=== PATIENT | male | born 1970 | race Caucasian/White ===

== ENCOUNTER → 2018-04-29 09:54 | Outpatient (CLI) | payer BC, SELFPAY ==
[2018-04-29 12:32] LABS: Erythrocyte Sedimentation Rate 3 mm/hr (0-15)
[2018-04-29 12:34] LABS: Absolute Lymphocyte Count 1.79 X10^3/ul (0.83-4.51); Absolute Neutrophil Count 4.6 X10^3/uL (2.0-7.7); Basophil# 0.02 X10^3/uL; Basophil% 0.3 % (0-1); Eosinophil# 0.14 X10^3/uL; Hematocrit 46.8 % (40-54); Hemoglobin 16.1 g/dl (13.0-16.5); Lymphocyte # 1.79 X10^3/ul (4.0); Lymphocyte % 25.6 % (19-41); Mean Corp Hgb Conc 34.4 g/gl (32-36); Mean Corpuscular Hgb 30.5 pg (27.0-32.0); Mean Corpuscular Volume 88.6 fL (80-94); Mean Platelet Vol. 10.6 fl (6.2-12.0); Monocyte# 0.43 X10^3/uL; Monocyte% 6.2 % (0-10); Neutrophil # 4.59 X10^3/uL (2.7-7.7); Neutrophil % 65.6 % (47-70); POSITIVE COUNT NO; POSITIVE DIFFERENTIAL NO; POSITIVE MORPHOLOGY NO; Platelet Count 176 K/mm3 (150-450); RBC Distribution Width SD 41.8 fl (35.1-43.9); Red Blood Count 5.28 M/mm3 (4.6-6.2)
[2018-04-29 12:54] LABS: ALB/GLOB Ratio 1.1 RATIO (0.9-2.4); AST(SGOT) 19 U/L (15-37); Alanine Aminotransfer ALT/SGPT 43 U/L (16-61); Alkaline Phosphatase 58 U/L (45-117); Anion Gap 10 (5-15); BUN 12 mg/dL (7-18); BUN/Creat Ratio 11.3 RATIO (10-20); Calcium,Total 9.5 mg/dL (8.5-10.1); Chloride 105 mmol/L (98-107); Creatinine, Serum 1.06 mg/dL (0.70-1.30); EST Glomerular Filtration Rate 80 mL/min (>60); Est Glom Filt Rate - Afr Amer 97 mL/min (>60); Globulin 3.5 g/dL (2.2-4.2); Glucose 149 mg/dL (74-106); Protein, Total 7.5 g/dL (6.4-8.2); Sodium Level 139 mmol/L (136-145); Thyroid Stim Hormone (TSH) 0.99 uIU/mL (0.358-3.74)
[2018-05-03 12:11] LABS: Alternaria alternata <0.10 kU/L (Class 0); Aspergillus fumigatus <0.10 kU/L (Class 0); Bahia Grass 0.88 kU/L (Class II); Beef <0.10 kU/L (Class 0); Bermuda Grass 0.54 kU/L (Class I); Bluegrass, Kentucky 3.97 kU/L (Class IV); Cat Hair/Dander, Standard <0.10 kU/L (Class 0); Cedar, Mountain 0.11 kU/L (Class 0/I); Cladosporium herbarum <0.10 kU/L (Class 0); Cockroach, American <0.10 kU/L (Class 0); Corn <0.10 kU/L (Class 0); D farinae Mite 1.55 kU/L (Class III); D pteronyssinus 1.35 kU/L (Class II); Dog Epithelia <0.10 kU/L (Class 0); Egg, Whole <0.10 kU/L (Class 0); Elm, American White 0.14 kU/L (Class 0/I); Hickory, White 0.25 kU/L (Class 0/I); Johnson Grass 0.66 kU/L (Class II); Maple/Box Elder 0.19 kU/L (Class 0/I); Milk (Cow) <0.10 kU/L (Class 0); Mucor racemosus <0.10 kU/L (Class 0); Mugwort 0.44 kU/L (Class I); Mulberry, White <0.10 kU/L (Class 0); Nettle <0.10 kU/L (Class 0); Oak, White 0.24 kU/L (Class 0/I); Peanut <0.10 kU/L (Class 0); Penicillium chrysogen <0.10 kU/L (Class 0); Pigweed, Rough 0.22 kU/L (Class 0/I); Plantain, English 0.37 kU/L (Class I); Pork <0.10 kU/L (Class 0); Ragweed, Short/Common 5.47 kU/L (Class IV); Sheep Sorrel(Dock) 0.26 kU/L (Class 0/I); Soybean <0.10 kU/L (Class 0); Stemphylium herbarum <0.10 kU/L (Class 0); Sweet Gum 0.22 kU/L (Class 0/I); Sycamore, American 0.15 kU/L (Class 0/I); Wheat 0.12 kU/L (Class 0/I)
[2018-05-03 12:24] LABS: Chocolate <0.10 kU/L (Class 0)
== END ==
PROVIDERS: Family Provider Family Medicine; PCP Family Medicine; Visit Provider Family Medicine
DX: L50.9 Urticaria, unspecified (principal)
CPT/HCPCS: 36415; 80053; 84443; 85025; 85652; 86003; 86005

== ENCOUNTER → 2019-04-22 14:43 | Outpatient (CLI) | payer BC, SELFPAY ==
[2019-04-21 17:02] VITALS: BMI 31.5
== END ==
PROVIDERS: Family Provider Family Medicine; PCP Family Medicine; Referring Provider Physician Assistant; Visit Provider Physician Assistant
DX: J02.9 Acute pharyngitis, unspecified (principal)
CPT/HCPCS: 87081

== ENCOUNTER → 2019-06-27 10:00 | Outpatient (CLI) | payer BC, SELFPAY ==
[2019-06-27 06:44] VITALS: BMI 31.5
== END ==
PROVIDERS: Family Provider Family Medicine; PCP Family Medicine; Referring Provider Physician Assistant; Visit Provider Physician Assistant
DX: J02.9 Acute pharyngitis, unspecified (principal)
CPT/HCPCS: 87070

== ENCOUNTER → 2019-08-16 08:12 | Outpatient (CLI) | payer BC, SELFPAY ==
[2019-06-27 06:44] VITALS: BMI 31.5
[2019-08-16 10:19] LABS: Anion Gap 5 (5-15); BUN 16 mg/dL (7-18); BUN/Creat Ratio 15.1 RATIO (10-20); Calcium,Total 8.8 mg/dL (8.5-10.1); Chloride 105 mmol/L (98-107); Cholesterol 219 mg/dL (200); Creatinine, Serum 1.06 mg/dL (0.70-1.30); EST Glomerular Filtration Rate 80 mL/min (>60); Est Glom Filt Rate - Afr Amer 96 mL/min (>60); Glucose 108 mg/dL (74-106); High Density Lipoprotein 37 mg/dL; Sodium Level 140 mmol/L (136-145); Triglycerides 316 mg/dL; Very Low Density Lipoprotein 63 mg/dL (5-40)
== END ==
PROVIDERS: Family Provider Family Medicine; PCP Family Medicine; Visit Provider Family Medicine
DX: Z00.00 Encounter for general adult medical examination without abnormal findings (principal)
CPT/HCPCS: 36415; 80048; 80061

== ENCOUNTER → 2020-08-13 09:43 | Outpatient (CLI) | payer BC, SELFPAY ==
[2019-06-27 06:44] VITALS: BMI 31.5
[2020-08-13 12:45] LABS: Anion Gap 3 (5-15); BUN 12 mg/dL (7-18); BUN/Creat Ratio 11.3 RATIO (10-20); Calcium,Total 9.1 mg/dL (8.5-10.1); Chloride 107 mmol/L (98-107); Cholesterol 219 mg/dL (200); Creatinine, Serum 1.06 mg/dL (0.70-1.30); EST Glomerular Filtration Rate 79 mL/min (>60); Est Glom Filt Rate - Afr Amer 96 mL/min (>60); Glucose 102 mg/dL (74-106); High Density Lipoprotein 35 mg/dL; Potassium 4.1 mmol/L (3.5-5.1); Sodium Level 140 mmol/L (136-145); Triglycerides 396 mg/dL; Very Low Density Lipoprotein 79 mg/dL (5-40)
== END ==
PROVIDERS: PCP Family Medicine; Visit Provider Family Medicine
DX: E78.1 Pure hyperglyceridemia (principal); R03.0 Elevated blood-pressure reading, without diagnosis of hypertension
CPT/HCPCS: 36415; 80048; 80061

== ENCOUNTER → 2021-08-15 10:04 | Outpatient (CLI) | payer BC, SELFPAY ==
[2021-08-15 13:12] LABS: Anion Gap 5 (5-15); BUN 12 mg/dL (7-18); BUN/Creat Ratio 11.8 RATIO (10-20); Calcium,Total 9.2 mg/dL (8.5-10.1); Chloride 105 mmol/L (98-107); Cholesterol 225 mg/dL (200); Creatinine, Serum 1.02 mg/dL (0.70-1.30); EST Glomerular Filtration Rate 82 mL/min (>60); Est Glom Filt Rate - Afr Amer 100 mL/min (>60); Glucose 120 mg/dL (74-106); High Density Lipoprotein 37 mg/dL; Sodium Level 139 mmol/L (136-145); Triglycerides 425 mg/dL
== END ==
PROVIDERS: PCP Family Medicine; Visit Provider Family Medicine
DX: I10 Essential (primary) hypertension (principal)
CPT/HCPCS: 36415; 80048; 80061

== ENCOUNTER 2022-04-01 06:18 | Day surgery (SDC) | payer BC, SELFPAY ==
[2022-04-01] VITALS (7 sets, daily range): BP systolic 99–155; BP diastolic 71–94; PULSE 69–77; RESP 16; TEMP 36.8–36.9; O2SAT 94–97; BMI 30.9
[2022-04-01] MEDS: Lactated Ringers 1,000 ML 15 ML IV (06:40)
--- NOTE | 2022-04-01 06:52 | HP.PCM_ITS ---
HPI - General HPI Narrative DALE CLEMENT, is a 52 M who presents for screening colonoscopy. Patient has never had a colonoscopy in the past. He reports no abdominal pain or blood in the stool. He denies family history of colon cancer. [facility] Medical History (Updated 03/26/22 @ 14:15 by Shakila Galeana) Dental caries DUST AND GRASS ALLERGY Hypertension Restless legs Home Medications loratadine 10 mg tablet (Claritin) 10 mg PO DAILY PRN allergies 06/06/18 [History Last Taken Unknown] lisinopril 20 mg tablet 20 mg PO DAILY 02/02/21 [History Last Taken Unknown] Allergy/AdvReac Type Severity Reaction Status Date / Time prednisone AdvReac Severe Upset Verified 03/26/22 14:10 Stomach Surgical History (Updated 03/26/22 @ 14:15 by Shakila Galeana) Hx of shoulder surgery Social History Smoking Status: Never smoker alcohol intake: never substance use type: does not use Past Medical/Surgical History Planned Operation Planned Operative Procedure/s: Colonoscopy Previous Hospitalizations/Surgeries HX Hospitalizations: No Any Problems With Anesthesia: No You/Your Family Experience Fever (Hyperthermia) With Anes: No Cholinesterase deficiency: No Cardiovascular Hx Hypertension: Yes Respiratory Hx Sleep Apnea: No Hx Respiratory Tract Infection/Cold (presently): No Do You Snore Loudly (louder than talking or can be heard): No Do You Often Feel Tired/ Fatigued/ Sleepy Dring Daytime?: No Has Anyone Observed You Stop Breathing During Sleep?: No Result (for STOP score): Negative Smoking Status: Never smoker Neurological Does patient have nerve stimulator: No Allergies prednisone Adverse Reaction (Severe, Verified 03/26/22 14:10) Upset Stomach Discharge Is Pt Admitted From a Long Term, or a Fdc: No After D/C, Where Do you Plan to Go: Return Home Physical Exam Const alert and oriented x3 Resp normal respiratory effort and normal air movement Cardio regular rate and regular rhythm GI soft to palpation, non-tender and non-distended Assessment & Plan Assessment/Plan (1) Encounter for screening for malignant neoplasm of colon: PLAN: I explained endoscopy in detail to the patient. I explained the risks including but not limited to stroke or heart attack with anesthesia, perforation of the GI tract, bleeding, infection. I explained that any of these could necessitate further emergency surgery. The patient understands and all questions were answered sufficiently. The patient wishes to proceed with procedure. Cayden Yañez MD Pager: [facility] [address] [place] [address] [address] [place] [address] Office: Surgery Risks - Colonoscopy Risks Include but are not Limited To: Risks include but are not limited to: Bleeding, perforation requiring further surgery, inability to complete colonoscopy requiring barium enema.
--- NOTE | 2022-04-01 08:05 | OP.COLON_ITS ---
Patient Name: Hayden Yousif Procedure Date: 04/01/2022 7:46 AM Date of : 1970 Age: 52 Procedure: Colonoscopy Indications: Screening for colorectal malignant neoplasm Providers: Cayden Yañez MD Medicines: Monitored Anesthesia Care Patient Profile: This is a 52 year old male. Refer to note in patient chart for documentation of history and physical. Last Colonoscopy: none. The patient's first colonoscopy is today. Complications: No immediate complications. Procedure: Pre-Anesthesia Assessment: - Prior to the procedure, a History and Physical was performed, and patient medications and allergies were reviewed. The patient's tolerance of previous anesthesia was also reviewed. The risks and benefits of the procedure and the sedation options and risks were discussed with the patient. All questions were answered, and informed consent was obtained. Prior Anticoagulants: The patient has taken no previous anticoagulant or antiplatelet agents. After reviewing the risks and benefits, the patient was deemed in satisfactory condition to undergo the procedure. After I obtained informed consent, the scope was passed under direct vision. Throughout the procedure, the patient's blood pressure, pulse, and oxygen saturations were monitored continuously. The adult colonoscope was introduced through the anus and advanced to the cecum, identified by appendiceal orifice and ileocecal valve. The colonoscopy was performed without difficulty. The patient tolerated the procedure well. The quality of the bowel preparation was good. Scope In: 7:52:12 AM Scope Withdrawal Time 0 hours 6 minutes 9 seconds Scope Out: 8:01:47 AM Total Procedure Duration Time 0 hours 9 minutes 35 seconds Findings: The entire examined colon appeared normal on direct and retroflexion views. Impression: - The entire examined colon is normal on direct and retroflexion views. - No specimens collected. Recommendation: - Discharge patient to home. - Resume previous diet. - Continue present medications. - Repeat colonoscopy in 10 years for screening purposes. Procedure Code(s): --- Professional --- 65217, Colonoscopy, flexible; diagnostic, including collection of specimen(s) by brushing or washing, when performed (separate procedure) Diagnosis Code(s): --- Professional --- Z12.11, Encounter for screening for malignant neoplasm of colon CPT copyright 2017 [employer]. All rights reserved. The codes documented in this report are preliminary and upon internet marketing manager review may be revised to meet current compliance requirements. Cayden Yañez MD 04/01/2022 8:05:15 AM This report has been signed electronically. Number of Addenda: 0 Note Initiated On: 04/01/2022 7:46 AM
--- NOTE | 2022-04-01 08:06 | OP.CCLET_ITS ---
04/01/2022 Dat Oconnor [address] [place] [address] Re : Colonoscopy procedure for Hayden Yousif Dear Dr. Oconnor This procedure was performed on Friday, April 01, 2022. My impressions and recommendations are as follows: Impressions : - The entire examined colon is normal on direct and retroflexion views. - No specimens collected. Recommendations : - Discharge patient to home. - Resume previous diet. - Continue present medications. - Repeat colonoscopy in 10 years for screening purposes. My findings are described in the full procedure note, which is enclosed. If I can be of further assistance, please feel free to contact me at Doctor phone number(s): , Work: . Sincerely, Cayden Yañez MD 04/01/2022 8:05:15 AM This report has been signed electronically.
== END 2022-04-01 08:46 | disposition home or self-care (01) ==
LOC: EN 06:24 → AC 06:25
PROVIDERS: PCP Family Medicine; Referring Provider Family Medicine; Visit Provider Surgery
PROC: 0DJD8ZZ Inspection of Lower Intestinal Tract, Via Natural or Artificial Opening Endoscopic (ICD-10-PCS; CPT 45378; principal; 2022-04-01 07:25)
DX: Z12.11 Encounter for screening for malignant neoplasm of colon (principal); I10 Essential (primary) hypertension
CPT/HCPCS: 45378; J7120; J2405

== ENCOUNTER → 2022-07-30 | Outpatient (CLI) | payer BC, SELFPAY ==
[2022-07-30 10:08] LABS: PSA,Total - Annual Screen 0.94 ng/mL (0.00-4.00)
[2022-07-31 09:18] LABS: ALB/GLOB Ratio 1.3 RATIO (0.9-2.4); AST(SGOT) 34 U/L (15-37); Alanine Aminotransfer ALT/SGPT 51 U/L (16-61); Albumin, Serum 4.2 g/dL (3.2-5.0); Alkaline Phosphatase 67 U/L (45-117); Anion Gap 8 (5-15); BUN 16 mg/dL (7-18); BUN/Creat Ratio 15.2 RATIO (10-20); Calcium,Total 9.4 mg/dL (8.5-10.1); Chloride 108 mmol/L (98-107); Cholesterol 223 mg/dL (200); Creatinine, Serum 1.05 mg/dL (0.70-1.30); EST Glomerular Filtration Rate 79 mL/min (>60); Est Glom Filt Rate - Afr Amer 96 mL/min (>60); Globulin 3.2 g/dL (2.2-4.2); Glucose 127 mg/dL (74-106); High Density Lipoprotein 34 mg/dL; Potassium 4.4 mmol/L (3.5-5.1); Protein, Total 7.4 g/dL (6.4-8.2); Sodium Level 144 mmol/L (136-145); Triglycerides 325 mg/dL; Very Low Density Lipoprotein 65 mg/dL (5-40)
== END | disposition home or self-care (01) ==
LOC: MFPLAB 08:37
PROVIDERS: PCP Family Medicine; Referring Provider Family Medicine; Visit Provider Family Medicine
DX: Z12.5 Encounter for screening for malignant neoplasm of prostate (principal); R73.01 Impaired fasting glucose
CPT/HCPCS: 36415; 80053; 80061; 84153; G0103

== ENCOUNTER → 2023-04-01 | Outpatient (CLI) | payer BC, SELFPAY ==
--- NOTE | 2023-04-01 16:00 | RAD_ITS ---
EXAM: XR LEFT TOES, 2 OR MORE VIEWS CLINICAL INDICATION: left toe injury TECHNIQUE: Frontal, lateral and oblique views of the toes of the left foot. COMPARISON: No relevant prior studies available. FINDINGS: BONES/JOINTS: There is subtle cortical disruption both medially and laterally at the base of the great toe distal phalanx, indicating a nondisplaced fracture. The osseous structures are otherwise intact. No dislocation. Bony bunion formation noted along the medial aspect of the first metatarsal head. Minimal degenerative spurring noted about the first MTP joint. SOFT TISSUES: Soft tissue swelling about the great toe phalanges. No radiopaque foreign body. RAD/Toe(s) Min 2 Views IMPRESSION: Nondisplaced fracture extending across the base of the left great toe distal phalanx, with surrounding soft tissue swelling. No definite intra-articular extension of the fracture line. Electronically Signed: Adrian Knight MD at 2:27 EDT ,
== END | disposition home or self-care (01) ==
LOC: MTRAD 15:56
PROVIDERS: PCP Family Medicine; Referring Provider Family Medicine; Visit Provider Family Medicine
DX: S99.922A Unspecified injury of left foot, initial encounter (principal)
CPT/HCPCS: 73660

== ENCOUNTER → 2023-06-01 | Outpatient (CLI) | payer BC, SELFPAY ==
[2023-06-01 10:52] LABS: ALB/GLOB Ratio 0.9 RATIO (0.9-2.4); AST(SGOT) 9 U/L (15-37); Alanine Aminotransfer ALT/SGPT 43 U/L (16-61); Albumin, Serum 3.5 g/dL (3.2-5.0); Alkaline Phosphatase 69 U/L (45-117); Anion Gap 8 (5-15); BUN 14 mg/dL (7-18); BUN/Creat Ratio 13.6 RATIO (10-20); Calcium,Total 9.2 mg/dL (8.5-10.1); Chloride 108 mmol/L (98-107); Cholesterol 230 mg/dL (200); Creatinine, Serum 1.03 mg/dL (0.70-1.30); EST Glomerular Filtration Rate 81 mL/min (>60); Est Glom Filt Rate - Afr Amer 98 mL/min (>60); Globulin 3.7 g/dL (2.2-4.2); Glucose 134 mg/dL (74-106); High Density Lipoprotein 34 mg/dL; PSA,Total - Annual Screen 0.63 ng/mL (0.00-4.00); Potassium 4.2 mmol/L (3.5-5.1); Protein, Total 7.2 g/dL (6.4-8.2); Sodium Level 141 mmol/L (136-145); Triglycerides 584 mg/dL
== END | disposition home or self-care (01) ==
LOC: MFPLAB 08:20
PROVIDERS: PCP Family Medicine; Visit Provider Family Medicine
DX: R73.01 Impaired fasting glucose (principal); Z12.5 Encounter for screening for malignant neoplasm of prostate
CPT/HCPCS: 36415; 80053; 80061; 84153; G0103

== ENCOUNTER 2023-07-08 19:29 | Emergency (ER) | payer BC, SELFPAY ==
[2023-07-08 19:29] VITALS: BP 180/97; PULSE 93; RESP 12; O2SAT 99
[2023-07-08 19:30] VITALS: BP 184/113; PULSE 75; RESP 18; TEMP 35.8; O2SAT 100; BMI 31.6
--- NOTE | 2023-07-08 20:10 | EX.ED.DYSGE1 ---
HPI History of Present Illness Chief Complaint: Hypertension Detail of Chief Complaint: Hypertension Informant: patient Narrative Narrative: Patient presents to the emergency department complaint of elevated blood pressure. Patient states that he was at a high school game and started feeling like his knees were weak and came feeling numb and tingly. He said 3 episodes now since May 24 of similar events. He was at a concert on May 24 when he started feeling this way and he went to the medical tent there and he was noted to have elevated blood pressure of 216 systolic. He was taken to [facility] where he had work-up including CT scan of his brain as well as blood work and EKG. Patient does have history of hypertension and takes lisinopril. He was recently seen by his primary care physician and started amlodipine today. No diagnosed history of anxiety. He does have some stressors and that he is can be starting a new job and he is in the process of planning a wedding. Denies recent illness otherwise. [facility] Medical History (Updated 07/08/23 @ 21:[address] Benito Dasilva, ) Dental caries DUST AND GRASS ALLERGY Hypertension Restless legs Home Medications loratadine 10 mg tablet (Claritin) 10 mg PO DAILY PRN allergies 06/06/18 [History Last Taken Unknown] lisinopril 20 mg tablet 20 mg PO DAILY 02/02/21 [History Last Taken Unknown] amlodipine 5 mg tablet mg 07/08/23 [History Last Taken Unknown] lorazepam 1 mg tablet (Ativan) 1 mg PO TID PRN anxiety #10 tabs 07/08/23 [Rx Last Taken Unknown] Allergy/AdvReac Type Severity Reaction Status Date / Time prednisone AdvReac Severe Upset Verified 04/01/22 06:55 Stomach Surgical History Hx of shoulder surgery Social History Smoking Status: Never smoker alcohol intake: never substance use type: does not use ROS ROS ED Review of Systems ROS Unobtainable: other Constitutional Constitutional ED: Reports lethargy; Denies chills, fever(s), sweats or weight loss Eyes Eyes: Denies blurry vision, change in vision or diplopia ENT ENT ED: Denies rhinorrhea or sore throat Cardiovascular Cardiovascular: Denies chest pain, orthopnea or racing heartbeat Respiratory/Chest Respiratory/Chest: Denies cough, dyspnea, dyspnea on exertion, orthopnea or sputum Gastrointestinal Gastrointestinal: Denies abdominal pain, diarrhea, nausea or vomiting Genitourinary Genitourinary ED: Denies dysuria, hematuria or urinary frequency Musculoskeletal Musculoskeletal: Denies arthralgias, back pain, myalgias or neck pain Integumentary Denies abscess, Abrasions or rash Neurologic Neurologic: Denies headache(s) or weakness Psychiatric Psychiatric: Denies anxiety, depression or suicidal thoughts Endocrine Endocrinology: Denies polydipsia, polyphagia or polyuria Hematologic/Lymphatic Hematologic/Lymphatic: Denies easy bleeding, easy bruising or lymphadenopathy Allergic/Immunologic Allergic/Immunologic ED: Denies mouth swelling, tongue swelling or urticaria EXAM Physical Exam Const Vital Signs: 07/08/23 19:30 07/08/23 19:29 07/08/23 20:19 Temperature 96.5 F L Temperature Source Temporal Pulse Rate 75 93 Respiratory Rate 18 12 Respiratory Effort Normal Respiratory Pattern Normal Blood Pressure 184/113 H 180/97 H Blood Pressure Mean 136 124 Pulse Ox 100 99 Oxygen Delivery Method Room Air Room Air 07/08/23 20:20 07/08/23 21:38 Temperature Temperature Source Pulse Rate Respiratory Rate Respiratory Effort Normal Respiratory Pattern Normal Blood Pressure 157/98 H Blood Pressure Mean 117 Pulse Ox Oxygen Delivery Method Positive well nourished and well developed General Appearance ED: well developed and NAD HEENT Reports TM's clear and moist mucous membranes normocephalic and atraumatic; Negative for trauma or tenderness Tympanic Membrane ED: Yes TM's clear Eyes PERRL and EOMs intact bilaterally General Eye ED: Negative for pale conjunctiva or scleral icterus Neck no lymphadenopathy, supple and no JVD General: Negative for tenderness Chest Wall inspection of chest normal and palpation of chest normal Chest: Negative for tenderness Resp normal respiratory effort and clear to auscultation bilaterally Effort and Inspection: Negative for respiratory distress or pain with movement Auscultation: Negative for rhonchi, wheezes or diminished lung sounds Cardio regular rate, regular rhythm, S1 normal heart sound, S2 normal heart sound and no murmurs Peripheral Pulses: pulses 2+ throughout GI normal to inspection, nondistended, normoactive bowel sounds, soft to palpation, non-tender, non-distended and no masses Back/Spine no CVA tenderness and no thoracic nor lumbar tenderness Extremity normal to inspection General Extremety ED: Negative for edema General Extremity: Negative for edema Neuro oriented x3, CN's II-XII intact bilaterally, no sensory deficits noted and gait normal Sensorium / Orientation: awake, alert, oriented to person, oriented to place and oriented to time Motor Exam: strength 5/5 throughout and strength abnormal Psych mental status grossly normal Skin no rashes or lesions noted and no wounds MDM MDM MDM Narrative Medical decision making narrative: Presents with concern for hypertension. Currently being treated for hypertension and started new medicine today. IV line established. CBC with differential white count 7.0 with hemoglobin of 15.8 and platelet count 217. Chemistries unremarkable. Troponin was normal. EKG showed a sinus rhythm with rate of 69 bpm with old inferior infarct. Patient was given a milligram of Ativan. Blood pressure is now running 170s to 150s systolic over 90s to 100 diastolic. Patient advised to continue with his current medications as he just started the Norvasc today. I recommended that he take the Norvasc in the morning and the lisinopril in the evening. Patient to keep track of his blood pressure readings. Patient advised to follow-up with his primary care physician within next 3 to 5 days. I will also start him on Ativan for as needed for anxiety. I suspect there may be a component of anxiety and stress. Lab Data Attestation: I reviewed the patient's lab results. Labs: Laboratory Results - last 24 hr 07/08/23 20:00 WBC 7.0 RBC 5.32 Hgb 15.8 Hct 44.7 MCV 84.0 MCH 29.7 MCHC 35.3 RDW Std Deviation 36.3 RDW Coeff of Rubens 12.0 Plt Count 217 MPV 10.0 Immature Gran % (Auto) 0.600 Neut % (Auto) 61.0 Lymph % (Auto) 30.0 [place] % (Auto) 5.7 Eos % (Auto) 2.0 Baso % (Auto) 0.7 Absolute Neuts (auto) 4.3 Absolute Lymphs (auto) 2.09 Nucleated RBC % 0 Sodium 139 Potassium 4.0 Chloride 106 Carbon Dioxide 27.0 Anion Gap 6 BUN 11 Creatinine 1.05 Estim Creat Clear Calc 85.94 Est GFR (MDRD) Af Amer 96 Est GFR (MDRD) Non-Af 79 BUN/Creatinine Ratio 10.5 Glucose 142 H Calcium 9.6 Troponin I High Sens 8 EKG Initial EKG: Attestation: I personally reviewed and interpreted this EKG as follows: Comments: Sinus rhythm with rate 69 bpm with old inferior infarct Discharge Plan Triage Chief Complaint: Hypertension ED Provider: Benito Dasilva Dx/Rx/DC Orders Clinical Impression: Anxiety, Hypertension Instructions: Hypertension Dc, ED Anxiety Reaction Prescriptions: New lorazepam [Ativan] 1 mg tablet 1 mg PO TID PRN (Reason: anxiety) Qty: 10 0RF No Action loratadine [Claritin] 10 mg tablet 10 mg PO DAILY PRN (Reason: allergies) lisinopril 20 mg tablet 20 mg PO DAILY amlodipine 5 mg tablet Patient Comments: TAKE 1 TABLET BY MOUTH EVERY DAY Primary Care Provider: Dat Oconnor Referrals: Dat Oconnor MD [Primary Care Provider] - 3-5 Days Disposition Disposition: Home, Self Care Discharge Date/Time: 07/08/23 21:40
[2023-07-08] MEDS: LORazepam 2 MG/ML Syringe 1 MG IV (20:15)
[2023-07-08 20:17] LABS: Absolute Lymphocyte Count 2.09 X10^3/uL (0.83-4.51); Absolute Neutrophil Count 4.3 X10^3/uL (2.0-7.7); Basophil# 0.05 X10^3/uL; Basophil% 0.7 % (0-1); Eosinophil# 0.14 X10^3/uL; Hematocrit 44.7 % (40-54); Hemoglobin 15.8 g/dL (13.0-16.5); Lymphocyte # 2.09 X10^3/ul (0.83-4.51); Mean Corp Hgb Conc 35.3 g/dL (32-36); Mean Corpuscular Hgb 29.7 pg (27.0-32.0); Monocyte% 5.7 % (0-10); NRBC Flagged by Analyzer 0 % (0-5); Neutrophil # 4.25 X10^3/uL (2.7-7.7); Platelet Count 217 K/mm3 (150-450); RBC Distribution Width SD 36.3 fl (35.1-43.9); Red Blood Count 5.32 M/mm3 (4.6-6.2)
[2023-07-08 20:37] LABS: Anion Gap 6 (5-15); BUN 11 mg/dL (7-18); BUN/Creat Ratio 10.5 RATIO (10-20); Calcium,Total 9.6 mg/dL (8.5-10.1); Chloride 106 mmol/L (98-107); Creatinine, Serum 1.05 mg/dL (0.70-1.30); EST Glomerular Filtration Rate 79 mL/min (>60); Est Glom Filt Rate - Afr Amer 96 mL/min (>60); Estimated Creatinine Clearance 85.94 ml/min; Glucose 142 mg/dL (74-106); Sodium Level 139 mmol/L (136-145); Troponin-I HS 8 pg/mL (3.0-78.0)
[2023-07-08 21:38] VITALS: BP 157/98
== END 2023-07-08 21:40 | disposition home or self-care (01) ==
PROVIDERS: Emergency Provider Emergency Medicine; PCP Family Medicine; Visit Provider Emergency Medicine
DX: I10 Essential (primary) hypertension (principal); F41.9 Anxiety disorder, unspecified; Z79.899 Other long term (current) drug therapy
CPT/HCPCS: 80048; 84484; 85025; 93005; 96374; 99285; A4216

== ENCOUNTER → 2023-10-13 | Outpatient (CLI) | payer BC, SELFPAY ==
--- NOTE | 2023-10-13 07:48 | ECHOD_ITS ---
Reason For Study: HTN Procedure This was a 2D Doppler, Color Flow transthoracic echocardiogram. Exam performed in department. Left Ventricle Normal LV size. Left ventricular systolic function is normal. The estimated ejection fraction is 60 %. Stage 1 diastolic dysfunction. No regional wall motion abnormalities noted. Right Ventricle Normal RV size. Normal systolic function. Atria Normal left atrium. Normal right atrium. Mitral Valve Equivocal mitral valve prolapse. Tricuspid Valve Normal tricuspid valve. Aortic Valve Normal aortic valve. Trisinus/trileaflet aortic valve. Pulmonic Valve The pulmonic valve is not well visualized. Great Vessels Normal aortic root. The pulmonary artery is normal size. Normal inferior vena cava. Pericardium/Pleural No pericardial effusion. MMode/2D Measurements & Calculations LVIDd: 4.6 cm IVSd: 0.98 cm Ao root diam: 3.4 cm LVIDs: 2.9 cm LVPWd: 0.93 cm RVDd: 3.9 cm FS: 38.1 % LAV(MOD-bp): 42.8 ml LVAd ap4: 30.6 cm2 LVAd ap2: 20.9 cm2 LAV(MOD-bp) Indexed: 19.5 ml/m2 LVLd ap4: 8.4 cm LVLd ap2: 7.4 cm LAV(MOD-sp2): 44.0 ml EDV(MOD-sp4): 91.9 ml EDV(MOD-sp2): 47.9 ml LAV(MOD-sp4): 40.8 ml EDV(sp4-el): 94.6 ml EDV(sp2-el): 49.8 ml LVAs ap4: 14.1 cm2 LVAs ap2: 10.6 cm2 LVLs ap4: 6.9 cm LVLs ap2: 6.1 cm ESV(MOD-sp4): 27.0 ml ESV(MOD-sp2): 16.8 ml ESV(sp4-el): 24.5 ml ESV(sp2-el): 15.6 ml EF(MOD-sp4): 70.6 % EF(MOD-sp2): 65.0 % EF(sp4-el): 74.1 % SV(MOD-sp4): 64.9 ml SV(MOD-sp2): 31.2 ml SV(sp4-el): 70.1 ml LA dimension(2D): 4.1 cm LA A4 area: 15.9 cm2 RA A4 area: 16.1 cm2 TAPSE: 2.4 cm Time Measurements MV dec time: 0.26 sec Doppler Measurements & Calculations MV E max rojas: 68.5 cm/sec Lat Peak E' Rojas: 11.8 cm/sec Med Peak E' Rojas: 8.2 cm/sec MV A max rojas: 74.8 cm/sec E/E' lat: 5.8 E/E' med: 8.3 MV E/A: 0.92 MV V2 max: 87.9 cm/sec MV P1/2t max rojas: 81.2 cm/sec Ao V2 max: 171.0 cm/sec MV max P.1 mmHg MV P1/2t: 82.6 msec Ao max P.7 mmHg MV V2 mean: 53.1 cm/sec MV dec slope: 288.1 cm/sec2 Ao V2 mean: 120.4 cm/sec MV mean P.3 mmHg Ao mean P.5 mmHg MV V2 VTI: 19.8 cm MVA(P1/2t): 2.7 cm2 Ao V2 VTI: 29.9 cm AV (velocity ratio): 0.85 LV V1 max: 157.3 cm/sec PA V2 max: 148.2 cm/sec LV V1 max P.9 mmHg PA V2 mean: 108.3 cm/sec LV V1 mean P.6 mmHg LV V1 mean: 113.1 cm/sec LV V1 VTI: 25.5 cm ECHO/Echo Complete Interpretation Summary Normal LV size. Left ventricular systolic function is normal. The estimated ejection fraction is 60 %. Equivocal mitral valve prolapse. Stage 1 diastolic dysfunction. Ordering Physician: Kendall Leon Referring Physician: Chirag Oconnor Performed By: May Mcclain, RDCS, RVT
--- OUTSIDE RECORDS SUMMARY | 2023-10-13 07:51 | XMS RPT_ITS | CCD ---
Author Name Unknown Address [address] [place] [address] Organization [facility] Care Team Providers Care Manufacturing Weaver Name Role Phone Chirag Holguin Primary Care Provider CHIRAG HOLGUIN Primary Care Unavail STEPHEN Ramirez Attending Unavailable DALI GARVIN Attending Unavail VU [place] Admitting Unavailab VU [place] Referring Unavailab CHIRAG Urbina Primary Care Unavail able JYOTI MCGOWAN Attending Unavailable CHIRAG HOLGUIN Primary Care Unavail CHIRAG Rutledge Primary Care UnavailDESTINEY Graves Attending Unavailable Allergies Allergy Classification Reported Allergen(s) Allergy Type Date of Onset Reaction(s) Facility Corticosteroids (1 source) predniSONE; Translations: [PREDNISONE] Drug Allergy 9 [facility] Repository (3 sources) predniSONE; Translations: [PREDNISONE] Drug Allergy 9 Other (See Comments) [facility] (1 source) OTHER; Translations: [OTHER] Propensity to adverse reactions (disorder) [address] [facility] Repository Medications Current Medications Medication Drug Class(es) Dates Sig (Normalized) Sig (Original) fexofenadine hydrochloride 180 mg oral tablet (1 source) Histamine-1 Receptor Antagonist Start: 04-12-2009 fexofenadine (Jolie Allergy) 180 MG tablet Take by mouth . 0 04/12/2009 Active loratadine 10 mg oral capsule (2 sources) loratadine 10 mg cap Take by mouth . 0 Active NONFORMULARY (2 sources) NONFORMULARY Indications: OTC allergy nose spray twice daily Reasons: OTC allergy nose spray twice daily. 0 Active ofloxacin 3 mg/ml ophthalmic solution (1 source) Quinolone Antimicrobial Start: 10-27-2018 End: 11-03-2018 take 1 drop(s) into the eye(s) four times daily ofloxacin (OCUFLOX) 0.3 % ophthalmic solution Administer 1 (one) drop to both eyes 4 (four) times a day for 7 days . 10 mL 0 10/27/2018 11/03/2018 Active Problems Problem Classification Problem Date Documented Date Episodic/Chronic Conditions associated with dizziness or vertigo (1 source) Dizziness and giddiness; Translations: [Dizziness] Onset: 06-25-2023 Episodic Essential hypertension (1 source) Essential (primary) hypertension; Translations: [Hypertension, unspecified type] Onset: 06-25-2023 Chronic Inflammation; infection of eye (except that caused by tuberculosis or sexually transmitteddisease) (1 source) Unspecified acute conjunctivitis, bilateral; Translations: [Acute conjunctivitis of both eyes, unspecified acute conjunctivitis type] Episodic Residual codes; unclassified (1 source) Other general symptoms and signs; Translations: [Suspected Covid-19 Virus Infection] Episodic Results Test Name Value Interpretation Reference Range Facil ity Vital Signs Date Time Vital Sign Value Performing Clinician Faci lity 07-04-2020 11:0500 BP Diastolic 100 mm[Hg] Stephen Cosme [facility] Encounters Encounter Date Encounter Type Care Provider Facility Start: 06-25-2023 End: 06-25-2023 Emergency department patient visit CHIRAG HOLGUIN Facility:[facility] Start: 11-30-2020 End: 11-30-2020 ambulatory DALI GARVIN [facility] Start: 11-08-2020 End: 11-08-2020 ambulatory JYOTI MCGOWAN [facility] Start: 07-04-2020 End: 07-04-2020 Patient encounter procedure CHIRAG HOLGUIN [facility] Start: 07-04-2020 End: 07-04-2020 Office outpatient visit 15 minutes Stephen Cosme Work Phone: [facility] [place] Plan of Treatment Date Care Activity Detail Author Start: 08-11-2029 Tetanus vaccination Tetanus: Every 1 0yrs [facility] Start: 04-17-2018 Influenza vaccination given SE QUENTIAL INFLUENZA VACCINE (#1) [facility] Start: 1990 Hepatitis C antibody , confirmatory test Hepatitis C Screening [facility] Start: 1987 HIV screening HIV Screening [facility] Start: 1984 Adolescent depressio n screening assessment Depression Screening (PHQ9) [facility] Start: 1975 History and physical examination, annual for health maintenance Wellness Visit [facility] Start: 1972 Prostate specific an tigen measurement PSA Level [facility] Start: 1972 Tetanus vaccination TETANUS EVERY 10 YR [facility] COVID-19, Molecular COVID-19, Mo lecular Microbiology Routine Suspected Covid-19 Virus Infection Ordered: 07/04/2020 [facility] Payers Date Payer Category Payer Unknown [place] [facility] [place]-Present xxxxxxxxxxxxxxx [id number] 2017 Unknown [place] [facility] [place] [id number] 2017-Present [id number] 2017 Unknown [id number] 2007 Unknown [id number] 1972 Unknown [id number] 1972 Unknown [id number] 1972 Unknown [id number] Social History Date Type Detail Facility Start: 10-27-2018 End: 07-04-2020 Tobacco smoking status NHIS Never smoker [facility] Start: 10-27-2018 Alcohol Comment rarely [facility] Sex Assigned At Not on file [facility] Start: 07-04-2020 Tobacco use and exposure Never used [facility] Start: 07-04-2020 Alcohol intake Current drinke r of alcohol (finding) [facility] Exposure to SARS-CoV -2 (event) Not sure [facility] Instructions * Patient Instructions* Rajwinder PortilloNilam, CORRECTIONAL CASE RECORDS SUPERVISOR - 10/27/2018 12:00 PM EDT Pinkeye: Care Instructions Your Care Instructions Pinkeye is redness and swelling of the eye surface and the conjunctiva (the lining of the eyelid and the covering of the white part of the eye). Pinkeye is also called conjunctivitis. Pinkeye is often caused by infection with bacteria or a virus. Dry air, allergies, smoke, and chemicals are other common causes. Pinkeye often clears on its own in 7 to 10 days. Antibiotics only help if the pinkeye is caused by bacteria. Pinkeye caused by infection spreads easily. If an allergy or chemical is causing pinkeye, it will not go away unless you can avoid whatever is causing it. Follow-up care is a nolasco part of your treatment and safety. Be sure to make and go to all appointments, and call your doctor if you are having problems. It's also a good idea to know your test resultsand keep a list of the medicines you take. How can you care for yourself at home? Wash your hands often. Always wash them before and after you treat pinkeye or touch your eyes or face. Use moist cotton or a clean, wet cloth to remove crust. Wipe from the inside corner of the eye to the outside. Use a clean part of the cloth for each wipe. Put cold or warm wet cloths on your eye a few times a day if the eye hurts. Do not wear contact lenses or eye makeup until the pinkeye is gone. Throw away any eye makeup you were using when you got pinkeye. Clean your contacts and storage case. If you wear disposable contacts, use a new pair when your eye has cleared and it is safe to wear contacts again. If the doctor gave you antibiotic ointment or eyedrops, use them as directed. Use the medicine for as long as instructed, even if your eye starts looking better soon. Keep the bottle tip clean, and do not let it touch the eye area. To put in eyedrops or ointment: ? Tilt your head back, and pull your lower eyelid down with one finger. ? Drop or squirt the medicine inside the lower lid. ? Close your eye for 30 to 60 seconds to let the drops or ointment move around. ? Do not touch the ointment or dropper tip to your eyelashes or any other surface. Do not share towels, pillows, or washcloths while you have pinkeye. When should you call for help? Call your doctor now or seek immediate medical care if: You have pain in your eye, not just irritation on the surface. You have a change in vision or loss of vision. You have an increase in discharge from the eye. Your eye has not started to improve or begins to get worse within 48 hours after you start using antibiotics. Pinkeye lasts longer than 7 days. Watch closely for changes in your health, and be sure to contact your doctor if you have any problems. Where can you learn more? Log into your personal health record on https://Chatterflyt.Capsule.fm and enter Y392 in the Education box to learn more about Pinkeye: Care Instructions. Current as of: May 09, 2018 Content Version: 11.9 4299-5759 [employer]. Care instructions adapted under license by your healthcare professional. If you have questions about a medical condition or this instruction, always ask your healthcare professional. [employer] disclaims any warranty or liability for your use of this information. in this encounter* Patient Instructions* Stephen Cosme CNP - 07/04/2020 10:57 AM EST COVID test is pending. Self quarantine. Work note provided. If you have any significant shortness of breath or difficulty breathing or chest pain go to the emergency room. Follow-up with your primary provider if concerns or symptoms in 5 to 7 days or earlier if needed. [facility] COVID Post-swabbing Instructions When and How Will I Get Results? Results will be available 1 to 5 days after your specimen is collected. The provider/practice who placed the order for your test will notify you of your results. If you have an active [employer] account, and your COVID test is negative (not detected), then you will be notified through your [employer] account. You should call the urgent care if you have any further questions. If your COVID test is positive (detected), you will receive a phone call to discuss your results and answer any questions you might have at that time. Please make sure [facility] has your updated phone number so we can contact you. [facility] will notify the [facility] of any positive results to comply with state regulations. What Happens After I Get Tested if I Have COVID-19 Symptoms? All patients should self-quarantine at home until they receive their test results. While self-quarantining, contact your PCP if you develop any of the following: - A fever of 103 degrees F (39.4 C) or higher - A fever that lasts more than 3 days without medication - A fever that returns after being gone for more than 24 hours - Chest pain or difficulty breathing - A worsening of current symptoms For work concerns, please contact your employer's HR department. How Do I Self-Quarantine? Stay Home: Stay home from work or school - We suggest that you avoid public places & as best as possible - Avoid close contact (less than 6 feet) with anyone in your household. - We also suggest that you sleep in a separate bedroom & use a separate bathroom from other house hold members if possible. What Do I Do If I am Sick? Stay Home: Stay home from work or school if you are sick. Social Distance: maintain 6 feet of distance from other people Monitor Your Symptoms: If you develop fever, shortness of breath, confusion, or any respiratory symptoms, please notify your doctor immediately Cover Your Cough: Cough and sneeze into your shirt sleeve or inner elbow. Do not cough into your hands or into the air. If available, cough into a tissue and throw it into a trash can. Wash Your Hands: Wash hands often with soap and warm water and/or alcohol based hand living manager, scrubbing your hands for at least 20 seconds. Wash your hands after sneezing or coughing, after going to the bathroom, and before eating or drinking. Wear a Mask: Wear a face mask when around others. Always wear a face mask (if available) if you have to leave your home (such as to go to a medical facility). Don't Touch: avoid touching your eyes, nose, and mouth Don't Share: avoid sharing items with others as they can spread infection. Call First: If you do need to seek urgent medical care, call the facility first to let them know you are on your way. What Happens After I Get Tested if I am Preparing for a Surgery or Procedure? If your test result is negative, proceed with your surgery as planned. We urge you to self-quarantine until your surgery or procedure to avoid any potential exposure to COVID-19. If your test is positive, you will be notified and your surgery will be rescheduled for a future date. Please contact your Primary Care Provider (PCP) immediately if you do receive a positive result. You will be expected to self-quarantine at home for 14 days. While self- quarantining, contact your PCP if you develop any of the following: - A fever of 103 degrees F (39.4 C) or higher - A fever that lasts more than 3 days without medication - A fever that returns after being gone for more than 24 hours - Chest pain or difficulty breathing - A worsening of current symptoms For work concerns, please contact your employer's HR Department What Happens After I Get Tested if I am Preparing to Deliver my Baby? Please remain self-quarantined at home until your delivery to limit any exposure risk to COVID-19. Please contact your Primary Care Provider (PCP) immediately if you do receive a positive result. - You will be expected to self-quarantine at home for 14 days, with the exception of seeking medical care for your . While self-quarantining, contact your PCP if you develop any of the following: - A fever of 103 degrees F (39.4 C) or higher - A fever that lasts more than 3 days without medication - A fever that returns after being gone for more than 24 hours - Chest pain or difficulty breathing - A worsening of current symptoms For work concerns, please contact your employer's HR Department Other COVID Questions? CDC: https://www.cdc.gov/coronavirus/2019-ncov/index.html [place] Department of Health - Website: https://coronavirus.[place].gov/wps/portal/gov/covid-19/home - Hotline: 900-0-CQN-ODH (963-239-4665) Metaplace: https://blog.Cimetrix.Express Fit/series/xmhen-00-hgdmsctnadj-toolkit/ Learning About Coronavirus (COVID-19) Coronavirus (COVID-19): Overview What is coronavirus (COVID-19)? The coronavirus disease (COVID-19) is caused by a virus. It is an illness that was first found in July 2019. It has since spread worldwide. The virus can cause fever, cough, and trouble breathing. In severe cases, it can cause pneumonia and make it hard to breathe without help. It can cause . This virus spreads nytmli-ka-qezuof through droplets from coughing and sneezing. It can also spreadwhen you are close to someone who is infected. And it can spread when you touch something that has the virus on it, such as a doorknob or a tabletop. Coronaviruses are a large group of viruses. They cause the common cold. They also cause more serious illnesses like Middle East respiratory syndrome (MERS) and severe acute respiratory syndrome (SARS). COVID-19 is caused by a novel coronavirus. That means it's a new type that has not been seen in people before. How is COVID-19 treated? Mild illness can be treated at home, but more serious illness needs to be treated in the hospital. Treatment may include medicines to reduce symptoms, plus breathing support such as oxygen therapy ora ventilator. Other treatments, such as antiviral medicines, may help people who have COVID-19. What can you do to protect yourself from COVID-19? The best way to protect yourself from getting sick is to: Avoid areas where there is an outbreak. Avoid contact with people who may be infected. Avoid crowds and try to stay at least 6 feet away from other people. Wash your hands often, especially after you cough or sneeze. Use soap and water, and scrub for at least 20 seconds. If soap and water aren't available, use an alcohol-based hand living manager. Avoid touching your mouth, nose, and eyes. What can you do to avoid spreading the virus to others? To help avoid spreading the virus to others: Wash your hands often with soap or alcohol-based hand sanitizers. Cover your mouth with a tissue when you cough or sneeze. Then throw the tissue in the trash. Use a disinfectant to clean things that you touch often. These include doorknobs, remote controls, phones, and handles on your refrigerator and microwave. And don't forget countertops, tabletops, bathrooms, and computer keyboards. Wear a cloth face cover if you have to go to public areas. If you know or suspect that you have COVID-19: Stay home. Don't go to school, work, or public areas. And don't use public transportation, ride-shares, or taxis unless you have no choice. Leave your home only if you need to get medical care or testing. But call the doctor's office firstso they know you're coming. And wear a face cover. Limit contact with people in your home. If possible, stay in a separate bedroom and use a separate bathroom. Wear a face cover whenever you're around other people. It can help stop the spread of the virus when you cough or sneeze. Clean and disinfect your home every day. Use household supervisor wound and disinfectant wipes or sprays. Take special care to clean things that you grab with your hands. Self-isolate until it's safe to be around others again. ? If you have symptoms, it's safe when you haven't had a fever for 3 days and your symptoms have improved and it's been at least 10 days since your symptoms started. ? If you were exposed to the virus but don't have symptoms, it's safe to be around others 14 days after exposure. ? Talk to your doctor about whether you also need testing, especially if you have a weakened immunesystem. When to call for help Call 911 anytime you think you may need emergency care. For example, call if: You have severe trouble breathing. (You can't talk at all.) You have constant chest pain or pressure. You are severely dizzy or lightheaded. You are confused or can't think clearly. Your face and lips have a blue color. You passed out (lost consciousness) or are very hard to wake up. Call your doctor now if you develop symptoms such as: Shortness of breath. Fever. Cough. If you need to get care, call ahead to the doctor's office for instructions before you go. Make sure you wear a face cover to prevent exposing other people to the virus. Where can you get the latest information? The following health organizations are tracking and studying this virus. Their websites contain themost up-to-date information. You'll also learn what to do if you think you may have been exposed tothe virus. U.[place]. Centers for Disease Control and Prevention (CDC): The CDC provides updated news about the disease and travel advice. The website also tells you how to prevent the spread of infection. www.cdc.gov World Health Organization (WHO): WHO offers information about the virus outbreaks. WHO also has travel advice. www.who.int Current as of: February 24, 2020 Content Version: 12.6 [employer]. Care instructions adapted under license by your healthcare professional. If you have questions about a medical condition or this instruction, always ask your healthcare professional. [employer] disclaims any warranty or liability for your use of this information. Coronavirus (COVID-19): Care Instructions Overview The coronavirus disease (COVID-19) is caused by a virus. Symptoms may include a fever, a cough, andshortness of breath. It mainly spreads pdtyqs-zq-ovygwc through droplets from coughing and sneezing. The virus also can spread when people are in close contact with someone who is infected. Most people have mild symptoms and can take care of themselves at home. If their symptoms get worse, they may need care in a hospital. Treatment may include medicines to reduce symptoms, plus breathing support such as oxygen therapy or a ventilator. It's important to not spread the virus to others. If you have COVID-19, wear a face cover anytime you are around other people. You need to isolate yourself while you are sick. Leave your home only ifyou need to get medical care or testing. Follow-up care is a nolasco part of your treatment and safety. Be sure to make and go to all appointments, and call your doctor if you are having problems. It's also a good idea to know your test resultsand keep a list of the medicines you take. How can you care for yourself at home? Get extra rest. It can help you feel better. Drink plenty of fluids. This helps replace fluids lost from fever. Fluids also help ease a scratchythroat. Water, soup, fruit juice, and hot tea with lemon are good choices. Take acetaminophen (such as Tylenol) to reduce a fever. It may also help with muscle aches. Read and follow all instructions on the label. Use petroleum jelly on sore skin. This can help if the skin around your nose and lips becomes sore from rubbing a lot with tissues. Tips for self-isolation Limit contact with people in your home. If possible, stay in a separate bedroom and use a separate bathroom. Wear a cloth face cover when you are around other people. It can help stop the spread of the virus when you cough or sneeze. If you have to leave home, avoid crowds and try to stay at least 6 feet away from other people. Avoid contact with pets and other animals. Cover your mouth and nose with a tissue when you cough or sneeze. Then throw it in the trash right away. Wash your hands often, especially after you cough or sneeze. Use soap and water, and scrub for at least 20 seconds. If soap and water aren't available, use an alcohol-based hand living manager. Don't share personal household items. These include bedding, towels, cups and glasses, and eating utensils. Wash laundry in the warmest water allowed for the fabric type, and dry it completely. It's okay to wash other people's laundry with yours. Clean and disinfect your home every day. Use household supervisor wound and disinfectant wipes or sprays. Take special care to clean things that you grab with your hands. These include doorknobs, remote controls, phones, and handles on your refrigerator and microwave. And don't forget countertops, tabletops, bathrooms, and computer keyboards. When you can end self-isolation If you know or suspect that you have COVID-19, stay in self-isolation until: ? You haven't had a fever for 3 days, and ? Your symptoms have improved, and ? It's been at least 10 days since your symptoms started. Talk to your doctor about whether you also need testing, especially if you have a weakened immune system. When should you call for help? Call 911 anytime you think you may need emergency care. For example, call if you have life-threatening symptoms, such as: You have severe trouble breathing. (You can't talk at all.) You have constant chest pain or pressure. You are severely dizzy or lightheaded. You are confused or can't think clearly. Your face and lips have a blue color. You pass out (lose consciousness) or are very hard to wake up. Call your doctor now or seek immediate medical care if: You have moderate trouble breathing. (You can't speak a full sentence.) You are coughing up blood (more than about 1 teaspoon). You have signs of low blood pressure. These include feeling lightheaded; being too weak to stand; and having cold, pale, clammy skin. Watch closely for changes in your health, and be sure to contact your doctor if: Your symptoms get worse. You are not getting better as expected. Call before you go to the doctor's office. Follow their instructions. And wear a cloth face cover. Current as of: February 24, 2020 Content Version: 12.6 [employer]. Care instructions adapted under license by your healthcare professional. If you have questions about a medical condition or this instruction, always ask your healthcare professional. [employer] disclaims any warranty or liability for your use of this information. documented in this encounter History of Present Illness * Rajwinder Portillo CNP - 10/27/2018 11:48 AM EDT Chief Complaint Patient presents with Conjunctivitis Bilateral eyes red, drainage and itching since waking this mornings. Vision without glasses: Left eye 20/100 and Right eye 20/40. (normally wears glasses for distance) SUBJECTIVE 48 y.o. male presents Conjunctivitis (Bilateral eyes red, drainage and itching since waking this mornings. Vision without glasses: Left eye 20/100 and Right eye 20/40. (normally wears glasses for distance)) Awoke this AM with pink eyes, both irritated but not matted. Denies other symptoms. 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 Last week had fever, chills, cold symptoms. He normally has a significant visual difference in his eyes. Conjunctivitis Associated symptoms include eye itching, eye pain (more an irriatation) and eye redness. MEDICAL ISSUES History reviewed. No pertinent past medical history. There is no problem list on file for this patient. SOCIAL HISTORY Social History Socioeconomic History Marital status: Single Spouse name: Not on file Number of children: Not on file Years of education: Not on file Highest education level: Not on file Social Needs Financial resource strain: Not on file Food insecurity - worry: Not on file Food insecurity - inability: Not on file Transportation needs - medical: Not on file Transportation needs - non-medical: Not on file Occupational History Not on file Tobacco Use Smoking status: Never Smoker Smokeless tobacco: Never Used Substance and Sexual Activity Alcohol use: Yes Comment: rarely Drug use: Never Sexual activity: Not on file Other Topics Concern Not on file Social History Narrative Not on file FAMILY HISTORY History reviewed. No pertinent family history. REVIEW OF SYSTEMS Review of Systems Constitutional: Negative. HENT: Negative. Eyes: Positive for pain (more an irriatation), redness and itching. Respiratory: Negative. Cardiovascular: Negative. Gastrointestinal: Negative. Neurological: Negative. Hematological: Negative. Psychiatric/Behavioral: Negative. MEDICATIONS PRIOR TO VISIT Current Outpatient Medications on File Prior to Visit Medication Sig Dispense Refill loratadine 10 mg cap Take by mouth . NONFORMULARY Reasons: OTC allergy nose spray twice daily. No current facility-administered medications on file prior to visit. ALLERGIES/INTOLERANCES Allergies Allergen Reactions Prednisone Other (See Comments) Abdominal cramping OBJECTIVE BP 134/82 (BP Location: Right arm, Patient Position: Sitting, BP Cuff Size: Adult) Pulse 78 Temp 97.6 F (36.4 C) (Oral) Resp 18 Ht 5' 10 Wt 95.3 kg (210 lb) SpO2 98% BMI 30.13 kg/m Physical Exam Constitutional: He is oriented to person, place, and time. He appears well- developed and well-nourished. No distress. HENT: Head: Normocephalic and atraumatic. Right Ear: Hearing, tympanic membrane, external ear and ear canal normal. Left Ear: Hearing, tympanic membrane, external ear and ear canal normal. Nose: No mucosal edema or rhinorrhea. Right sinus exhibits no maxillary sinus tenderness and no frontal sinus tenderness. Left sinus exhibits no maxillary sinus tenderness and no frontal sinus tenderness. Mouth/Throat: Oropharynx is clear and moist and mucous membranes are normal. No uvula swelling. No oropharyngeal exudate or posterior oropharyngeal erythema. TMs WNL Eyes: Pupils are equal, round, and reactive to light. Conjunctivae and EOM are normal. Injected bilateral sclera. Lashes appear to have little matter on them. Corneas clear Neck: Normal range of motion. Neck supple. No tracheal deviation present. Cardiovascular: Normal rate, regular rhythm and normal heart sounds. Pulmonary/Chest: Effort normal and breath sounds normal. Musculoskeletal: Normal range of motion. Lymphadenopathy: He has no cervical adenopathy. Neurological: He is alert and oriented to person, place, and time. Skin: Skin is warm and dry. He is not diaphoretic. Psychiatric: He has a normal mood and affect. His behavior is normal. Thought content normal. Nursing note and vitals reviewed. PROCEDURE Procedures Results No results found for this or any previous visit (from the past 168 hour(s)). ASSESSMENT/PLAN (expressed as patient instructions): SNOMED CT(R) 1. Acute conjunctivitis of both eyes, unspecified acute conjunctivitis type ACUTE CONJUNCTIVITIS OFBILATERAL EYES Return if symptoms worsen or fail to improve. ADDITIONAL CLINICAL COMMENTS No notes on file ORDERS PLACED THIS VISIT No orders of the defined types were placed in this encounter. MEDICATION LIST AT END OF VISIT Current Outpatient Medications Medication Sig Dispense Refill loratadine 10 mg cap Take by mouth . NONFORMULARY Reasons: OTC allergy nose spray twice daily. ofloxacin (OCUFLOX) 0.3 % ophthalmic solution Administer 1 (one) drop to both eyes 4 (four) times aday for 7 days . 10 mL 0 No current facility-administered medications for this visit. in this encounter* Stephen Cosme CNP - 07/04/2020 10:52 AM EST Patient Name: [facility] Location: [place] [id number] Date Of : Date Of Visit: 1970 07/04/2020 MRN# Provider: [id number] Stephen Cosme CNP Chief Complaint Patient presents with Covid-19 Screening no symptoms Assessment & Plan 1. Suspected Covid-19 Virus Infection Covid-19/Influenza Order Algorithm CANCELED: Covid-19/Influenza Order Algorithm No follow-ups on file. Medical Decision Making Presents for asymptomatic COVID testing with no direct exposure. He is just concerned. He was a bitanxious while in the clinic and his BP was high which it normally is not high. He has an upcoming appointment with his pcp and will get it rechecked. Additional Clinical Comments COVID test sendout. Influenza Immunization Patient UTD. Flu shot documented in chart under Health Maintenance. [facility] COVID-19 Mask Status: Does the patient have classic COVID-19 symptoms? No, the patient does not have COVID-19 symptoms, the patient WAS wearing a mask during the visit and I (the provider) WAS wearing a mask during the visit. Subjective 50 y.o. male presents with Covid-19 Screening (no symptoms) Presents for COVID screening. No symptoms. Wants for peace of mind. Works inside [employer] for outside [employer]. 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 Talked to his boss and he told Arsen that he would have to off work until test results are known. Review Of Systems Review of Systems Constitutional: Negative for chills and fever. HENT: Negative for congestion, rhinorrhea and sore throat. Denies new loss of taste or smell Respiratory: Negative for cough and shortness of breath. Gastrointestinal: Negative for diarrhea, nausea and vomiting. Musculoskeletal: Negative for myalgias. Neurological: Negative for headaches. Medical History History reviewed. No pertinent past medical history. Past Surgical History: Procedure Laterality Date SHOULDER SURGERY There is no problem list on file for this patient. Social History Social History Tobacco Use Smoking status: Never Smoker Smokeless tobacco: Never Used Substance Use Topics Alcohol use: Yes Comment: rarely Drug use: Never Family History History reviewed. No pertinent family history. Objective Physical Exam BP (!) 157/100 Comment: Recheck [facility]G Pulse 98 Temp 98.3 F (36.8 C) (Infrared) Resp 12 Ht 6' Wt 95.3 kg (210 lb) SpO2 98% BMI 28.48 kg/m Vision/Hearing Exam:No exam data present Physical Exam Constitutional: Appearance: He is well-developed. Pulmonary: Effort: Pulmonary effort is normal. Skin: General: Skin is warm and dry. Neurological: Mental Status: He is oriented to person, place, and time. Procedure Notes Procedures Results No results found for this or any previous visit (from the past 168 hour(s)). No orders to display Orders Placed This Visit Orders Placed This Encounter Procedures Covid-19/Influenza Order Algorithm COVID-19, Molecular Medication List At End Of Visit Current Outpatient Medications Medication Sig Dispense Refill fexofenadine (Jolie Allergy) 180 MG tablet Take by mouth . loratadine 10 mg cap Take by mouth . NONFORMULARY Reasons: OTC allergy nose spray twice daily. No current facility-administered medications for this visit. Patient Instructions COVID test is pending. Self quarantine. Work note provided. If you have any significant shortness of breath or difficulty breathing or chest pain go to the emergency room. Follow-up with your primary provider if concerns or symptoms in 5 to 7 days or earlier if needed. [facility] COVID Post-swabbing Instructions When and How Will I Get Results? Results will be available 1 to 5 days after your specimen is collected. The provider/practice who placed the order for your test will notify you of your results. If you have an active [employer] account, and your COVID test is negative (not detected), then you will be notified through your [employer] account. You should call the urgent care if you have any further questions. If your COVID test is positive (detected), you will receive a phone call to discuss your results and answer any questions you might have at that time. Please make sure [facility] has your updated phone number so we can contact you. [facility] will notify the [place] [facility] of [facility] of any positive results to comply with state regulations. What Happens After I Get Tested if I Have COVID-19 Symptoms? All patients should self-quarantine at home until they receive their test results. While self-quarantining, contact your PCP if you develop any of the following: - A fever of 103 degrees F (39.4 C) or higher - A fever that lasts more than 3 days without medication - A fever that returns after being gone for more than 24 hours - Chest pain or difficulty breathing - A worsening of current symptoms For work concerns, please contact your employer's HR department. How Do I Self-Quarantine? Stay Home: Stay home from work or school - We suggest that you avoid public places & as best as possible - Avoid close contact (less than 6 feet) with anyone in your household. - We also suggest that you sleep in a separate bedroom & use a separate bathroom from other house hold members if possible. What Do I Do If I am Sick? Stay Home: Stay home from work or school if you are sick. Social Distance: maintain 6 feet of distance from other people Monitor Your Symptoms: If you develop fever, shortness of breath, confusion, or any respiratory symptoms, please notify your doctor immediately Cover Your Cough: Cough and sneeze into your shirt sleeve or inner elbow. Do not cough into your hands or into the air. If available, cough into a tissue and throw it into a trash can. Wash Your Hands: Wash hands often with soap and warm water and/or alcohol based hand living manager, scrubbing your hands for at least 20 seconds. Wash your hands after sneezing or coughing, after going to the bathroom, and before eating or drinking. Wear a Mask: Wear a face mask when around others. Always wear a face mask (if available) if you have to leave your home (such as to go to a medical facility). Don't Touch: avoid touching your eyes, nose, and mouth Don't Share: avoid sharing items with others as they can spread infection. Call First: If you do need to seek urgent medical care, call the facility first to let them know you are on your way. What Happens After I Get Tested if I am Preparing for a Surgery or Procedure? If your test result is negative, proceed with your surgery as planned. We urge you to self-quarantine until your surgery or procedure to avoid any potential exposure to COVID-19. If your test is positive, you will be notified and your surgery will be rescheduled for a future date. Please contact your Primary Care Provider (PCP) immediately if you do receive a positive result. You will be expected to self-quarantine at home for 14 days. While self- quarantining, contact your PCP if you develop any of the following: - A fever of 103 degrees F (39.4 C) or higher - A fever that lasts more than 3 days without medication - A fever that returns after being gone for more than 24 hours - Chest pain or difficulty breathing - A worsening of current symptoms For work concerns, please contact your employer's HR Department What Happens After I Get Tested if I am Preparing to Deliver my Baby? Please remain self-quarantined at home until your delivery to limit any exposure risk to COVID-19. Please contact your Primary Care Provider (PCP) immediately if you do receive a positive result. - You will be expected to self-quarantine at home for 14 days, with the exception of seeking medical care for your . While self-quarantining, contact your PCP if you develop any of the following: - A fever of 103 degrees F (39.4 C) or higher - A fever that lasts more than 3 days without medication - A fever that returns after being gone for more than 24 hours - Chest pain or difficulty breathing - A worsening of current symptoms For work concerns, please contact your employer's HR Department Other COVID Questions? CDC: https://www.cdc.gov/coronavirus/2019-ncov/index.html [facility] - Website: https://coronavirus.[place].gov/wps/portal/gov/covid-19/home - Hotline: 100-2-XWB-OD (190-760-6726) [employer]: https://blog.Capsule.fm/series/pvlgm-33-dwwcoswpmya-toolkit/ Learning About Coronavirus (COVID-19) Coronavirus (COVID-19): Overview What is coronavirus (COVID-19)? The coronavirus disease (COVID-19) is caused by a virus. It is an illness that was first found in July 2019. It has since spread worldwide. The virus can cause fever, cough, and trouble breathing. In severe cases, it can cause pneumonia and make it hard to breathe without help. It can cause . This virus spreads [id number] through droplets from coughing and sneezing. It can also spreadwhen you are close to someone who is infected. And it can spread when you touch something that has the virus on it, such as a doorknob or a tabletop. Coronaviruses are a large group of viruses. They cause the common cold. They also cause more serious illnesses like [place] respiratory syndrome (MERS) and severe acute respiratory syndrome (SARS). COVID-19 is caused by a novel coronavirus. That means it's a new type that has not been seen in people before. How is COVID-19 treated? Mild illness can be treated at home, but more serious illness needs to be treated in the hospital. Treatment may include medicines to reduce symptoms, plus breathing support such as oxygen therapy ora ventilator. Other treatments, such as antiviral medicines, may help people who have COVID-19. What can you do to protect yourself from COVID-19? The best way to protect yourself from getting sick is to: Avoid areas where there is an outbreak. Avoid contact with people who may be infected. Avoid crowds and try to stay at least 6 feet away from other people. Wash your hands often, especially after you cough or sneeze. Use soap and water, and scrub for at least 20 seconds. If soap and water aren't available, use an alcohol-based hand living manager. Avoid touching your mouth, nose, and eyes. What can you do to avoid spreading the virus to others? To help avoid spreading the virus to others: Wash your hands often with soap or alcohol-based hand sanitizers. Cover your mouth with a tissue when you cough or sneeze. Then throw the tissue in the trash. Use a disinfectant to clean things that you touch often. These include doorknobs, remote controls, phones, and handles on your refrigerator and microwave. And don't forget countertops, tabletops, bathrooms, and computer keyboards. Wear a cloth face cover if you have to go to public areas. If you know or suspect that you have COVID-19: Stay home. Don't go to school, work, or public areas. And don't use public transportation, ride-shares, or taxis unless you have no choice. Leave your home only if you need to get medical care or testing. But call the doctor's office firstso they know you're coming. And wear a face cover. Limit contact with people in your home. If possible, stay in a separate bedroom and use a separate bathroom. Wear a face cover whenever you're around other people. It can help stop the spread of the virus when you cough or sneeze. Clean and disinfect your home every day. Use household supervisor wound and disinfectant wipes or sprays. Take special care to clean things that you grab with your hands. Self-isolate until it's safe to be around others again. ? If you have symptoms, it's safe when you haven't had a fever for 3 days and your symptoms have improved and it's been at least 10 days since your symptoms started. ? If you were exposed to the virus but don't have symptoms, it's safe to be around others 14 days after exposure. ? Talk to your doctor about whether you also need testing, especially if you have a weakened immunesystem. When to call for help Call 911 anytime you think you may need emergency care. For example, call if: You have severe trouble breathing. (You can't talk at all.) You have constant chest pain or pressure. You are severely dizzy or lightheaded. You are confused or can't think clearly. Your face and lips have a blue color. You passed out (lost consciousness) or are very hard to wake up. Call your doctor now if you develop symptoms such as: Shortness of breath. Fever. Cough. If you need to get care, call ahead to the doctor's office for instructions before you go. Make sure you wear a face cover to prevent exposing other people to the virus. Where can you get the latest information? The following health organizations are tracking and studying this virus. Their websites contain themost up-to-date information. You'll also learn what to do if you think you may have been exposed tothe virus. U.S. Centers for Disease Control and Prevention (CDC): The CDC provides updated news about the disease and travel advice. The website also tells you how to prevent the spread of infection. www.cdc.gov World Health Organization (WHO): WHO offers information about the virus outbreaks. WHO also has travel advice. www.who.int Current as of: February 24, 2020 Content Version: 12.6 [employer]. Care instructions adapted under license by your healthcare professional. If you have questions about a medical condition or this instruction, always ask your healthcare professional. [employer] disclaims any warranty or liability for your use of this information. Coronavirus (COVID-19): Care Instructions Overview The coronavirus disease (COVID-19) is caused by a virus. Symptoms may include a fever, a cough, andshortness of breath. It mainly spreads [id number] through droplets from coughing and sneezing. The virus also can spread when people are in close contact with someone who is infected. Most people have mild symptoms and can take care of themselves at home. If their symptoms get worse, they may need care in a hospital. Treatment may include medicines to reduce symptoms, plus breathing support such as oxygen therapy or a ventilator. It's important to not spread the virus to others. If you have COVID-19, wear a face cover anytime you are around other people. You need to isolate yourself while you are sick. Leave your home only ifyou need to get medical care or testing. Follow-up care is a nolasco part of your treatment and safety. Be sure to make and go to all appointments, and call your doctor if you are having problems. It's also a good idea to know your test resultsand keep a list of the medicines you take. How can you care for yourself at home? Get extra rest. It can help you feel better. Drink plenty of fluids. This helps replace fluids lost from fever. Fluids also help ease a scratchythroat. Water, soup, fruit juice, and hot tea with lemon are good choices. Take acetaminophen (such as Tylenol) to reduce a fever. It may also help with muscle aches. Read and follow all instructions on the label. Use petroleum jelly on sore skin. This can help if the skin around your nose and lips becomes sore from rubbing a lot with tissues. Tips for self-isolation Limit contact with people in your home. If possible, stay in a separate bedroom and use a separate bathroom. Wear a cloth face cover when you are around other people. It can help stop the spread of the virus when you cough or sneeze. If you have to leave home, avoid crowds and try to stay at least 6 feet away from other people. Avoid contact with pets and other animals. Cover your mouth and nose with a tissue when you cough or sneeze. Then throw it in the trash right away. Wash your hands often, especially after you cough or sneeze. Use soap and water, and scrub for at least 20 seconds. If soap and water aren't available, use an alcohol-based hand living manager. Don't share personal household items. These include bedding, towels, cups and glasses, and eating utensils. Wash laundry in the warmest water allowed for the fabric type, and dry it completely. It's okay to wash other people's laundry with yours. Clean and disinfect your home every day. Use household supervisor wound and disinfectant wipes or sprays. Take special care to clean things that you grab with your hands. These include doorknobs, remote controls, phones, and handles on your refrigerator and microwave. And don't forget countertops, tabletops, bathrooms, and computer keyboards. When you can end self-isolation If you know or suspect that you have COVID-19, stay in self-isolation until: ? You haven't had a fever for 3 days, and ? Your symptoms have improved, and ? It's been at least 10 days since your symptoms started. Talk to your doctor about whether you also need testing, especially if you have a weakened immune system. When should you call for help? Call 911 anytime you think you may need emergency care. For example, call if you have life-threatening symptoms, such as: You have severe trouble breathing. (You can't talk at all.) You have constant chest pain or pressure. You are severely dizzy or lightheaded. You are confused or can't think clearly. Your face and lips have a blue color. You pass out (lose consciousness) or are very hard to wake up. Call your doctor now or seek immediate medical care if: You have moderate trouble breathing. (You can't speak a full sentence.) You are coughing up blood (more than about 1 teaspoon). You have signs of low blood pressure. These include feeling lightheaded; being too weak to stand; and having cold, pale, clammy skin. Watch closely for changes in your health, and be sure to contact your doctor if: Your symptoms get worse. You are not getting better as expected. Call before you go to the doctor's office. Follow their instructions. And wear a cloth face cover. Current as of: February 24, 2020 Content Version: 12.6 [employer]. Care instructions adapted under license by your healthcare professional. If you have questions about a medical condition or this instruction, always ask your healthcare professional. [employer] disclaims any warranty or liability for your use of this information. 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 FOR RECORDS PERTAINING TO PATIENTS WHO ARE OR HAVE BEEN ENROLLED IN A CHEMICAL DEPENDENCY/SUBSTANCEABUSE PROGRAM, SOME INFORMATION MAY BE OMITTED. This clinical summary was aggregated from multiple sources. Caution should be exercised in using it in the provision of clinical care. This summary normalizes information from multiple sources, and as a consequence, information in this document may materially change the coding, format and clinical context of patient data. In addition, data may be omitted in some cases. CLINICAL DECISIONS SHOULD BE BASED ON THE PRIMARY CLINICAL RECORDS. [facility] [employer] [facility]. provides no warranty or guarantee of the accuracy or completeness of information in this document.
== END | disposition home or self-care (01) ==
LOC: CVS 07:47
PROVIDERS: PCP Family Medicine; Referring Provider Internal Medicine Cardiovascular Disease; Visit Provider Internal Medicine Cardiovascular Disease
DX: I10 Essential (primary) hypertension (principal)
CPT/HCPCS: 93306

== ENCOUNTER → 2023-10-28 | Outpatient (CLI) | payer BC, SELFPAY ==
--- OUTSIDE RECORDS SUMMARY | 2023-10-28 22:44 | XMS RPT_ITS | CCD ---
Author Name Unknown Address [address] [place] [address] Organization [facility] Care Team Providers Care Pool Table Operator Name Role Phone Chirag Holguin Primary Care [...] source) predniSONE; Translations: [PREDNISONE] Drug Allergy 9 [facility] Repository (3 sources) predniSONE; Translations: [PREDNISONE] Drug Allergy 9 Other (See Comments) [facility] (1 source) OTHER; Translations: [OTHER] Propensity to adverse reactions (disorder) 7 [facility] Repository Medications Current Medications Medication Drug Class(es) [...] 11:0500 BP Diastolic 100 mm[Hg] Stephen Cosme [facility] Encounters Encounter Date Encounter Type Care Provider Facility Start: 06-25-2023 End: 06-25-2023 Emergency department patient visit CHIRAG HOLGUIN Facility:[facility] Start: 11-30-2020 End: 11-30-2020 ambulatory DALI GARVIN [facility] Start: 11-08-2020 End: 11-08-2020 ambulatory JYOTI MCGOWAN [facility] Start: 07-04-2020 End: 07-04-2020 Patient encounter procedure CHIRAG HOLGUIN [facility] Start: 07-04-2020 End: 07-04-2020 Office outpatient visit 15 minutes Stephen Cosme Work Phone: [facility] [place] Plan of Treatment Date Care Activity Detail Author Start: 08-11-2029 Tetanus vaccination Tetanus: Every 1 0yrs [facility] Start: 04-17-2018 Influenza vaccination given SE QUENTIAL INFLUENZA VACCINE (#1) [facility] Start: 1990 Hepatitis C antibody , confirmatory test Hepatitis C Screening [facility] Start: 1987 HIV screening HIV Screening [facility] Start: 1984 Adolescent depressio n screening assessment Depression Screening (PHQ9) [facility] Start: 1975 History and physical examination, annual for health maintenance Wellness Visit [facility] Start: 1972 Prostate specific an tigen measurement PSA Level [facility] Start: 1972 Tetanus vaccination TETANUS EVERY 10 YR [facility] COVID-19, Molecular COVID-19, Mo lecular Microbiology Routine Suspected Covid-19 Virus Infection Ordered: 07/04/2020 [facility] Payers Date Payer Category Payer Unknown [employer] OF STATE [facility] xxxxxxxxxxxxxxx 2017-Present xxxxxxxxxxxxxxx [id number] 2017 Unknown [employer] [facility] [id number] 2017-Present [id number] 2017 Unknown [id number] 2007 Unknown [id number] 1972 Unknown [id number] 1972 Unknown [id number] 1972 Unknown [id number] Social History Date Type Detail Facility Start: 10-27-2018 End: 07-04-2020 Tobacco smoking status NHIS Never smoker [facility] Start: 10-27-2018 Alcohol Comment rarely [facility] Sex Assigned At Not on file [facility] Start: 07-04-2020 Tobacco use and exposure Never used [facility] Start: 07-04-2020 Alcohol intake Current drinke r of alcohol (finding) [facility] Exposure to SARS-CoV -2 (event) Not sure [facility] Instructions * Patient Instructions* Rajwinder PortilloNilam, BORE MINER OPERATOR - 10/27/2018 12:00 PM EDT [place]: Care [...] Log into your personal health record on [email or web address] Gifts and enter Y392 in the Education box to learn more about [facility]: Care Instructions. Current as of: May 09, 2018 Content Version: 11.9 5005-4270 [employer]. Care instructions adapted under license by your healthcare professional. If you have questions about a medical condition or this instruction, always ask your healthcare professional. [employer] disclaims any warranty or liability for your [...] your results. If you have an active Headplay account, and your COVID test is negative (not detected), then you will be notified through your Headplay account. You should call the urgent care if you have any further questions. If your COVID test is positive (detected), you will receive a phone call to discuss your results and answer any questions you might have at that time. Please make sure [facility] has your updated phone number so we can contact you. [facility] will notify the [facility] of any positive results to comply with [...] and warm water and/or alcohol based hand knitted garment finisher, scrubbing your hands for at least 20 [...] HR Department Other COVID Questions? CDC: https://www.cdc.gov/coronavirus/2019-ncov/index.html [place] [facility] - Website: https://coronavirus.[place].gov/wps/portal/gov/covid-19/home - Hotline: 102-4-CKY-ODH (775-440-9980) Allthetopbananas.com: https://blog.[employer].LabRoots/series/dabqt-03-dmlonwpykyt-toolkit/ Learning About Coronavirus (COVID-19) Coronavirus (COVID-19): Overview [...] It can cause . This virus spreads etublo-pb-uwbecz through droplets from coughing and sneezing. It [...] water aren't available, use an alcohol-based hand knitted garment finisher. Avoid touching your mouth, nose, and eyes. [...] disinfect your home every day. Use household hand ii cutter and disinfectant wipes or sprays. Take special [...] of: February 24, 2020 Content Version: 12.6 FancyBox. Care instructions adapted under license by your healthcare professional. If you have questions about a medical condition or this instruction, always ask your healthcare professional. [employer] disclaims any warranty or liability for your use of this information. Coronavirus (COVID-19): Care Instructions Overview The coronavirus disease (COVID-19) is caused by a virus. Symptoms may include a fever, a cough, andshortness of breath. It mainly spreads iojmfe-vz-hbjamj through droplets from coughing and sneezing. The [...] water aren't available, use an alcohol-based hand knitted garment finisher. Don't share personal household items. These include bedding, towels, cups and glasses, and eating utensils. Wash laundry in the warmest water allowed for the fabric type, and dry it completely. It's okay to wash other people's laundry with yours. Clean and disinfect your home every day. Use household hand ii cutter and disinfectant wipes or sprays. Take special [...] of: February 24, 2020 Content Version: 12.6 FancyBox. Care instructions adapted under license by your healthcare professional. If you have questions about a medical condition or this instruction, always ask your healthcare professional. [employer] disclaims any warranty or liability for your [...] - 07/04/2020 10:52 AM EST Patient Name: [facility] Location: [place] [id number] Date Of : Date Of Visit: 1970 07/04/2020 MRN# Provider: [id number] Stephen Cosme CNP Chief Complaint Patient presents [...] Wants for peace of mind. Works inside [employer] for outside [employer]. 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 If you have an active Headplay account, and your COVID test is negative (not detected), then you will be notified through your Headplay account. You should call the urgent care if you have any further questions. If your COVID test is positive (detected), you will receive a phone call to discuss your results and answer any questions you might have at that time. Please make sure [facility] has your updated phone number so we can contact you. [facility] will notify the [place] [facility] of any positive results to comply with [...] and warm water and/or alcohol based hand knitted garment finisher, scrubbing your hands for at least 20 [...] HR Department Other COVID Questions? CDC: https://www.cdc.gov/coronavirus/2019-ncov/index.html [facility] - Website: https://coronavirus.[place].gov/wps/portal/gov/covid-19/home - Hotline: 557-1-YDG-OD (694-695-7598) [place]: https://blog.Cyber Gifts/series/lowjo-92-izdenffwlxa-toolkit/ Learning About Coronavirus (COVID-19) Coronavirus (COVID-19): Overview [...] It can cause . This virus spreads rswtfy-gd-mywsoi through droplets from coughing and sneezing. It [...] water aren't available, use an alcohol-based hand knitted garment finisher. Avoid touching your mouth, nose, and eyes. [...] disinfect your home every day. Use household hand ii cutter and disinfectant wipes or sprays. Take special [...] of: February 24, 2020 Content Version: 12.6 FancyBox. Care instructions adapted under license by your healthcare professional. If you have questions about a medical condition or this instruction, always ask your healthcare professional. [employer] disclaims any warranty or liability for your use of this information. Coronavirus (COVID-19): Care Instructions Overview The coronavirus disease (COVID-19) is caused by a virus. Symptoms may include a fever, a cough, andshortness of breath. It mainly spreads lkpdib-vh-wnjfqm through droplets from coughing and sneezing. The [...] water aren't available, use an alcohol-based hand knitted garment finisher. Don't share personal household items. These include bedding, towels, cups and glasses, and eating utensils. Wash laundry in the warmest water allowed for the fabric type, and dry it completely. It's okay to wash other people's laundry with yours. Clean and disinfect your home every day. Use household hand ii cutter and disinfectant wipes or sprays. Take special [...] of: February 24, 2020 Content Version: 12.6 FancyBox. Care instructions adapted under license by your healthcare professional. If you have questions about a medical condition or this instruction, always ask your healthcare professional. [employer] disclaims any warranty or liability for your use of this information. 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 [facility] [employer] [facility]. provides no warranty or guarantee of the accuracy or completeness of information in this document.
== END | disposition home or self-care (01) ==
LOC: MFPLAB 16:34
PROVIDERS: PCP Family Medicine; Visit Provider Family Medicine
DX: N52.9 Male erectile dysfunction, unspecified (principal)
CPT/HCPCS: 36415; 84403

== ENCOUNTER → 2023-12-22 | Outpatient (CLI) | payer BC, SELFPAY | END | disposition home or self-care (01) | LOC: MTLAB 07:13 | PROVIDERS: PCP Family Medicine; Referring Provider Family Medicine; Visit Provider Family Medicine | DX: K52.9 Noninfective gastroenteritis and colitis, unspecified (principal) | CPT/HCPCS: 36415; 84403 ==

== ENCOUNTER → 2024-03-07 | Outpatient (CLI) | payer BC, SELFPAY ==
[2024-03-15 15:09] LABS: Aldosterone, Serum 4.3 ng/dL (0.0-30.0); Dopamine, Pl <30 pg/mL (0-48); Epinephrine, Pl <15 pg/mL (0-62); Norepinephrine, Pl 488 pg/mL (0-874); Renin, Plasma 52.248 ng/mL/hr (0.167-5.380)
== END | disposition home or self-care (01) ==
LOC: LAB 16:06
PROVIDERS: PCP Family Medicine; Referring Provider Internal Medicine Cardiovascular Disease; Visit Provider Internal Medicine Cardiovascular Disease
DX: I10 Essential (primary) hypertension (principal)
CPT/HCPCS: 36415; 82088; 82384; 84244

== ENCOUNTER → 2024-05-03 | Outpatient (CLI) | payer OTHER, SELFPAY ==
[2024-05-03 10:35] LABS: Anion Gap 8 (5-15); BUN 15 mg/dL (7-18); BUN/Creat Ratio 13.8 RATIO (10-20); Calcium,Total 9.6 mg/dL (8.5-10.1); Chloride 104 mmol/L (98-107); Cholesterol 255 mg/dL (200); Creatinine, Serum 1.09 mg/dL (0.70-1.30); EST Glomerular Filtration Rate 76 mL/min (>60); Est Glom Filt Rate - Afr Amer 91 mL/min (>60); Glucose 216 mg/dL (74-106); High Density Lipoprotein 36 mg/dL; PSA,Total - Annual Screen 0.54 ng/mL (0.00-4.00); Potassium 3.7 mmol/L (3.5-5.1); Sodium Level 138 mmol/L (136-145); Triglycerides 468 mg/dL
== END | disposition home or self-care (01) ==
LOC: MTLAB 07:07
PROVIDERS: PCP Family Medicine; Referring Provider Family Medicine; Visit Provider Family Medicine
DX: Z13.220 Encounter for screening for lipoid disorders (principal); Z12.5 Encounter for screening for malignant neoplasm of prostate; I16.0 Hypertensive urgency; I10 Essential (primary) hypertension
CPT/HCPCS: 36415; 80048; 80061; 84153; 84443; G0103

== ENCOUNTER 2024-05-31 07:14 | Emergency (ER) | payer OTHER, SELFPAY ==
[2024-05-31 07:15] VITALS: BP 128/91; PULSE 116; RESP 18; TEMP 36.8; O2SAT 96; BMI 30.5
--- NOTE | 2024-05-31 07:20 | EX.ED.DYSGE1 ---
HPI History of Present Illness Chief Complaint: Abd Pain PFSH PFS Medical History (Reviewed 03/07/24 @ 15:45 by Meek Gonzalez FITNESS/WELLNESS DIRECTOR, FITNESS/WELLNESS DIRECTOR-C) Hernia Diabetes mellitus type 2, uncontrolled Syncope Restless legs Encounter for screening for malignant neoplasm of colon Hypertension [employer] Home Medications ?Medication ?Instructions ?Recorded ?Last Taken ?Type lisinopril 40 mg tablet 40 mg PO DAILY 07/23/23 Unknown History amlodipine 10 mg tablet 10 mg PO DAILY #90 tabs 08/19/23 Unknown Rx hydrochlorothiazide 25 mg tablet 25 mg PO DAILY #90 tabs 08/19/23 Unknown Rx tadalafil 20 mg tablet 20 mg PO Q3D PRN 03/07/24 Unknown History dicyclomine 10 mg capsule 10 mg PO TID PRN abdominal pain 3 05/31/24 Unknown Rx days #10 caps ondansetron 4 mg disintegrating 4 mg PO Q8H PRN PRN Nausea #10 tabs 05/31/24 Unknown Rx tablet Allergy/AdvReac Type Severity Reaction Status Date / Time prednisone AdvReac Severe Upset Verified 05/31/24 07:15 Stomach Surgical History (Reviewed 03/07/24 @ 15:45 by Meek Gonzalez FITNESS/WELLNESS DIRECTOR, FITNESS/WELLNESS DIRECTOR-C) Hx of shoulder surgery Social History (Reviewed 03/07/24 @ 15:45 by Meek Gonzalez FITNESS/WELLNESS DIRECTOR, FITNESS/WELLNESS DIRECTOR-C) Smoking Status: Never smoker alcohol intake: never substance use type: does not use EXAM Physical Exam Const Vital Signs: 05/31/24 07:15 05/31/24 09:14 05/31/24 11:00 Temperature 98.3 F Temperature Source Oral Pulse Rate 116 H 91 93 Respiratory Rate 18 19 H 18 Blood Pressure 128/91 H 123/87 H 124/85 H Blood Pressure Mean 103 99 98 Pulse Ox 96 95 Oxygen Delivery Method Room Air Room Air MDM MDM MDM Narrative Medical decision making narrative: HISTORY OF PRESENT ILLNESS: 54-year-old male presents with bloating after eating last night. States he is having vomiting or having diarrhea he states that he felt so uncomfortable that he nearly passed out. He does start after dinner. States he ate less than usual. States he became lightheaded felt warm noted he was sweaty and pale. He further states this morning he woke up and continued to feel bloated so he presented for further evaluation. The patient denies recent surgery in the last 4 weeks or immobilization in the last 3 days, denies previous diagnosis of DVT or PE, hemoptysis, unilateral leg swelling or malignancy with treatment the last 6 months or palliative. No estrogen use noted. Denies chest pain or palpitations. Denies shortness of breath. Denies cough fever chills. Denies leg swelling. Denies family history of premature cardiac . No CP currently. REVIEW OF SYSTEMS: Pertinent positives: Abdominal bloating, near syncope Pertinent negatives: Chest pain, shortness of breath, leg swelling PHYSICAL EXAM: Nursing triage notes reviewed, Vital signs reviewed Constitutional: please see mdm HENT: MMM Eyes: Pupils equal round and reactive to light, Extraocular muscles intact Neck: No stridor, no JVD, full neck ROM Lungs: Clear to auscultation, No wheezing or rales. No increased work of breathing, no conversational dyspnea, no accessory muscle use, no nasal flaring. No respiratory distress noted Heart: Regular rate and rhythm, No murmurs, No rubs and No gallops, 2+ distal pulses (radial, femoral, posterior tibial) in all extremities Abdomen: Soft, there is no tenderness, rigidity, rebound or guarding, no obvious peritoneal signs, no palpable pulsatile abdominal masses, no auscultated abdominal bruit : No CVAT Extremities: No edema Neuro: No focal neurological deficits, cranial nerves II through XII intact, 5/5 strength in all extremities. Intact sensation to light touch in all extremities, 2+ reflexes bilateral patella tendons. Normal gait. No ataxia. Skin: No rash or lesions noted MEDICAL DECISION MAKING: Chief Complaint: Abdominal pain, near syncope External records reviewed: Reviewed prior allergies, problem list, vital signs, medications. Reviewed prior imaging study Factors affecting care: Hypertension, hyperlipidemia Social determinants of health: none History obtained from others: Patient's Consults: none [facility] Narrative: The patient was initially hemodynamically stable, tachycardic with a rate of 116 otherwise afebrile and nontoxic-appearing. I considered the following differential diagnosis: Acute pancreatitis, gallbladder etiology, hepatobiliary obstruction, perforation, ACS, arrhythmia, anemia, pneumonia, electrolyte disturbance I obtained a broad lab and imaging workup to further elucidate etiology of the patient's complaint ALL IMAGES (IF OBTAINED) HAVE BEEN PERSONALLY REVIEWED AND INTERPRETED BY MYSELF. EKG with normal sinus rhythm, normal axis, normal intervals, no obvious STEMI Initial lactate elevated 3.4, repeat after 1 L fluid improved to 2.3 I suspect is related to dehydration rather than endorgan hypoperfusion from sepsis given his improvement with 1 L of fluid. High-sensitivity troponin is negative, no evidence of myocardial ischemia x 2 BMP without significant Elba normalities, no sign of endorgan hypoperfusion or metabolic acidosis, noted renal insufficiency LFTs show no evidence of hepatobiliary pathology. Lipase is wnl indicating no pancreatic inflammation. CBC without leukocytosis, severe anemia, no thrombocytopenia. I have personally reviewed the patient's chest x-ray. Chest x-ray is unremarkable for pulmonary edema, pneumothorax, pneumonia or focal cardiopulmonary abnormality. CT scan head and pelvis shows no evidence of acute surgical etiology but shows evidence of enteritis is likely etiology the patient's complaint The synthesis of the patient's history, physical exam, labs images suggest enteritis, dehydration as a cause of patient's presentation. He received 1 L normal saline with improvement in vital signs and symptomatology. He be prescribed Bentyl and Zofran as an outpatient and given strict return precautions. The patient and/or family, caregivers express understanding. The patient and/or family, caregivers agrees with the plan. Shared decision making: I will have a discussion with the patient and or visitors regarding risk/benefits of further testing or admission. They will be made aware of of the risk/benefits inherent in this decision they will be given the opportunity to voice understanding. Total critical care time today provided was at least 0 minutes. This excludes separately billable procedures. Critical care time (if documented) is secondary to the patient having high probability of clinically significant/life threatening deterioration in the patient's condition which required my urgent intervention. Impression: 1. Enteritis 2. Dehydration 3. Acute kidney injury Dispo: Discharge home This note was generated with GridAnts dictation software. It may contain incorrect words, spelling, and punctuation that were not noted in review of the chart prior to signing. Lab Data Labs: Laboratory Results - last 24 hr 05/31/24 05/31/24 05/31/24 08:02 10:15 10:47 WBC 10.9 RBC 5.21 Hgb 15.6 Hct 44.8 MCV 86.0 MCH 29.9 MCHC 34.8 RDW Std Deviation 37.9 RDW Coeff of Rubens 12.0 Plt Count 224 MPV 10.3 Sodium 136 Potassium 3.9 Chloride 102 Carbon Dioxide 25.0 Anion Gap 9 BUN 20 H Creatinine 1.55 H Estim Creat Clear Calc 68.90 Est GFR (MDRD) Af Amer 61 Est GFR (MDRD) Non-Af 50 L BUN/Creatinine Ratio 12.9 Glucose 283 H Lactic Acid 3.4 H* 2.3 H* Calcium 10.0 Total Bilirubin 0.60 AST 30 ALT 51 Alkaline Phosphatase 82 Troponin I High Sens 4 4 Total Protein 7.7 Albumin 3.8 Globulin 3.9 Albumin/Globulin Ratio 1.0 Lipase 26 Radiography Diagnostic Testing: Clinical Impression(s) from Imaging Studies Abdomen/Pelvis CT 05/31/24 07:40 IMPRESSION: 1. Mild fluid-filled dilatation of small bowel loops may be secondary to enteritis but no bowel obstruction. 2. Moderate hepatic steatosis, previously mild hepatic steatosis. 3. No CT evidence of mass or lymphadenopathy in the abdomen and pelvis. Electronically Signed: Franklin Reeder MD at 9:35 EDT , Chest X-Ray 05/31/24 08:30 IMPRESSION: Discoid atelectases in the right lower lung zone otherwise negative chest radiograph and no significant interval change. Electronically Signed: Franklin Reeder MD at 9:31 EDT , Discharge Plan Triage Chief Complaint: Abd Pain ED Provider: Esteban Cross Dx/Rx/DC Orders Clinical Impression: Enteritis Instructions: ED Gastroenteritis, Viral (Adult) Prescriptions: New ondansetron 4 mg tablet,disintegrating 4 mg PO Q8H PRN PRN (Reason: Nausea) Qty: 10 0RF dicyclomine 10 mg capsule 10 mg PO TID PRN (Reason: abdominal pain) 3 Days Qty: 10 0RF No Action lisinopril 40 mg tablet 40 mg PO DAILY Patient Comments: TAKE 1 TABLET BY MOUTH EVERY DAY amlodipine 10 mg tablet 10 mg PO DAILY Qty: 90 3RF hydrochlorothiazide 25 mg tablet 25 mg PO DAILY Qty: 90 3RF tadalafil 20 mg tablet 20 mg PO Q3D PRN Primary Care Provider: Chirag Oconnor Referrals: Chirag Oconnor MD [Primary Care Provider] - Activity Restrictions/Additional Instructions: Thank you for trusting us with your care today! Your labs and images were consistent with likely dehydration caused by enteritis (inflammation of your intestines). Is likely viral infection which should self resolve in 7 to 14 days. Please increase your fluid intake by mouth. I recommend Body Armor, Pedialyte or Gatorade. You have been prescribed Zofran and Bentyl for as needed nausea vomiting control and bloating control. Please take Tylenol (2 pills, 650 mg), ibuprofen (2 pills, 400 mg) every 6 hours as needed for pain and fever control. Please return to the emergency department if your symptoms change or worsen. Please follow with your primary care physician for further outpatient evaluation and management. Print Language: Romanian Disposition Disposition: Home, Self Care
--- NOTE | 2024-05-31 07:40 | CT_ITS ---
EXAM: CT ABDOMEN AND PELVIS WITH INTRAVENOUS CONTRAST CLINICAL INDICATION: Abdominal pain and bloating TECHNIQUE: Helically acquired images were obtained of the abdomen and pelvis with intravenous contrast. This CT exam was performed using one or more of the following dose reduction techniques: automated exposure control, adjustment of the mA and/or kV according to patient size, and/or use of iterative reconstruction technique. CONTRAST: IV 100mL Isovue-300 RADIATION DOSE: CTDIvol = 16.47 mGy, DLP = 1276.34 mGy-cm COMPARISON: CT abdomen and pelvis with contrast 10/13/2010. FINDINGS: LOWER THORAX: Linear atelectasis in the right lower lung zone. No cardiomegaly. No significant pericardial effusion. ABDOMEN: LIVER: Progression of now moderate asymmetric fatty infiltration of the liver. GALLBLADDER AND BILE DUCTS: Unremarkable. No calcified gallstones. No gallbladder distention or wall edema. No intra- or extrahepatic biliary ductal dilation. PANCREAS: Unremarkable. No focal cystic or solid mass. SPLEEN: Unremarkable. Normal size without focal cystic or solid mass. ADRENALS: Unremarkable. No nodules. KIDNEYS AND URETERS: Unremarkable. Normal renal size and position. No hydronephrosis. STOMACH AND BOWEL: Mild fluid-filled dilatation of small bowel loops. No focal inflammatory change. Normal stomach. Normal colon. PELVIS: APPENDIX: Normal. BLADDER: Unremarkable. REPRODUCTIVE: Unremarkable as visualized. No mass. ABDOMEN and PELVIS: INTRAPERITONEAL SPACE: Unremarkable. No ascites or other fluid collection. No free air. BONES/JOINTS: Unremarkable. No suspicious lytic or blastic abnormality. SOFT TISSUES: Unremarkable. No discrete abdominal or pelvic wall hernia. VASCULATURE: Unremarkable. Abdominal aorta is non-dilated. LYMPH NODES: Unremarkable. No enlarged lymph nodes. CT/Abdomen/Pelvis W IV Cont ONLY IMPRESSION: 1. Mild fluid-filled dilatation of small bowel loops may be secondary to enteritis but no bowel obstruction. 2. Moderate hepatic steatosis, previously mild hepatic steatosis. 3. No CT evidence of mass or lymphadenopathy in the abdomen and pelvis. Electronically Signed: Franklin Reeder MD at 9:35 EDT ,
--- NOTE | 2024-05-31 07:40 | EKG12_ITS ---
Test Reason : GENERAL Blood Pressure : / mmHG Vent. Rate : 096 BPM Atrial Rate : 096 BPM P-R Int : 146 ms QRS Dur : 088 ms QT Int : 348 ms P-R-T Axes : 035 037 -01 degrees QTc Int : 439 ms Normal sinus rhythm Possible Inferior infarct , age undetermined Abnormal ECG Confirmed by Lazarus Bhatt ([id number]), department editor TYLOR HERNANDEZ ([id number]) on 06/01/2024 9:23:00 AM Referred By: Confirmed By:Lazarus Bhatt
[2024-05-31] MEDS: Dicyclomine 10 MG Capsule PO (08:05)
[2024-05-31 08:10] LABS: Hematocrit 44.8 % (40-54); Hemoglobin 15.6 g/dL (13.0-16.5); Mean Corp Hgb Conc 34.8 g/dL (32-36); Mean Corpuscular Hgb 29.9 pg (27.0-32.0); Mean Platelet Vol. 10.3 fl (6.2-12.0); Platelet Count 224 K/mm3 (150-450); RBC Distribution Width SD 37.9 fl (35.1-43.9); Red Blood Count 5.21 M/mm3 (4.6-6.2); White Blood Count 10.9 K/mm3 (4.4-11.0)
--- NOTE | 2024-05-31 08:30 | RAD_ITS ---
EXAM: XR CHEST, 1 VIEW CLINICAL INDICATION: Near syncope TECHNIQUE: Frontal view of the chest. COMPARISON: 09/29/2005. FINDINGS: LUNGS AND PLEURAL SPACES: Discoid atelectasis in the right lower lung zone. No consolidation or edema. No pleural effusion. No pneumothorax. HEART: Unremarkable. Cardiac silhouette not enlarged. MEDIASTINUM: Central airways and mediastinal contour are unremarkable. BONES/JOINTS: Unremarkable. No acute fracture. SOFT TISSUES: Unremarkable. RAD/Chest 1 View (Portable) IMPRESSION: Discoid atelectases in the right lower lung zone otherwise negative chest radiograph and no significant interval change. Electronically Signed: Franklin Reeder MD at 9:31 EDT ,
[2024-05-31 08:37] LABS: AST(SGOT) 30 U/L (15-37); Alanine Aminotransfer ALT/SGPT 51 U/L (16-61); Albumin, Serum 3.8 g/dL (3.2-5.0); Alkaline Phosphatase 82 U/L (45-117); Anion Gap 9 (5-15); BUN 20 mg/dL (7-18); BUN/Creat Ratio 12.9 RATIO (10-20); Chloride 102 mmol/L (98-107); Creatinine, Serum 1.55 mg/dL (0.70-1.30); EST Glomerular Filtration Rate 50 mL/min (>60); Est Glom Filt Rate - Afr Amer 61 mL/min (>60); Globulin 3.9 g/dL (2.2-4.2); Glucose 283 mg/dL (74-106); Lipase 26 U/L (13-75); Potassium 3.9 mmol/L (3.5-5.1); Protein, Total 7.7 g/dL (6.4-8.2); Sodium Level 136 mmol/L (136-145); Troponin-I HS (w/2H Reflex) 4 pg/mL (3.0-78.0)
[2024-05-31 08:41] LABS: Lactic Acid 3.4 mmol/L (0.4-1.9)
[2024-05-31 09:14] VITALS: BP 123/87; PULSE 91; RESP 19
[2024-05-31] MEDS: 0.9% Normal Saline (1000mL) 1,000 ML 999 ML IV (09:37)
[2024-05-31 10:09] LABS: Reflex Troponin-HS? (from REC) Y
[2024-05-31 10:52] LABS: Troponin-I HS 4 pg/mL (3.0-78.0)
[2024-05-31 11:00] VITALS: BP 124/85; PULSE 93; RESP 18; O2SAT 95
[2024-05-31 11:28] LABS: Lactic Acid 2.3 mmol/L (0.4-1.9)
[2024-05-31 12:09] LABS: Reflex Lactate? Y
[2024-05-31 12:37] VITALS: BP 138/77; PULSE 92; RESP 19; TEMP 36.8; O2SAT 97
[2024-05-31 15:03] LABS: Reflex Lactate? Y
== END 2024-05-31 12:39 | disposition home or self-care (01) ==
PROVIDERS: Emergency Provider Emergency Medicine; PCP Family Medicine; Visit Provider Emergency Medicine
DX: K52.9 Noninfective gastroenteritis and colitis, unspecified (principal); E11.9 Type 2 diabetes mellitus without complications; N17.9 Acute kidney failure, unspecified; E78.5 Hyperlipidemia, unspecified; I10 Essential (primary) hypertension; E86.0 Dehydration; R55 Syncope and collapse; Z79.899 Other long term (current) drug therapy; Z79.84 Long term (current) use of oral hypoglycemic drugs; R14.0 Abdominal distension (gaseous)
CPT/HCPCS: 71045; 74177; 80053; 83605; 83690; 84484; 85027; 93005; 96360; 99283; Q9967; A4216

== ENCOUNTER → 2024-06-15 | Outpatient (CLI) | payer OTHER, SELFPAY ==
[2024-06-15 17:29] LABS: Absolute Lymphocyte Count 2.38 X10^3/uL (0.83-4.51); Absolute Neutrophil Count 3.9 X10^3/uL (2.0-7.7); Basophil# 0.05 X10^3/uL; Basophil% 0.7 % (0-1); Eosinophil# 0.21 X10^3/uL; Eosinophils% 2.9 % (0-5); Hematocrit 43.5 % (40-54); Hemoglobin 15.5 g/dL (13.0-16.5); Lymphocyte # 2.38 X10^3/ul (0.83-4.51); Lymphocyte % 33.3 % (19-41); Mean Corp Hgb Conc 35.6 g/dL (32-36); Mean Corpuscular Hgb 30.2 pg (27.0-32.0); Mean Corpuscular Volume 84.6 fL (80-94); Mean Platelet Vol. 10.4 fl (6.2-12.0); Monocyte# 0.58 X10^3/uL; Monocyte% 8.1 % (0-10); NRBC Flagged by Analyzer 0 % (0-5); Neutrophil # 3.87 X10^3/uL (2.7-7.7); Neutrophil % 54.3 % (47-70); Platelet Count 248 K/mm3 (150-450); RBC Distribution Width CV 12.1 % (11.6-14.6); RBC Distribution Width SD 36.6 fl (35.1-43.9); Red Blood Count 5.14 M/mm3 (4.6-6.2); White Blood Count 7.1 K/mm3 (4.4-11.0)
[2024-06-15 18:10] LABS: ALB/GLOB Ratio 1.1 RATIO (0.9-2.4); AST(SGOT) 22 U/L (15-37); Alanine Aminotransfer ALT/SGPT 47 U/L (16-61); Alkaline Phosphatase 76 U/L (45-117); Anion Gap 5 (5-15); BUN 13 mg/dL (7-18); BUN/Creat Ratio 12.1 RATIO (10-20); Calcium,Total 9.4 mg/dL (8.5-10.1); Chloride 99 mmol/L (98-107); Creatinine, Serum 1.07 mg/dL (0.70-1.30); EST Glomerular Filtration Rate 77 mL/min (>60); Est Glom Filt Rate - Afr Amer 93 mL/min (>60); Globulin 3.6 g/dL (2.2-4.2); Glucose 256 mg/dL (74-106); Potassium 3.5 mmol/L (3.5-5.1); Protein, Total 7.6 g/dL (6.4-8.2); Sodium Level 133 mmol/L (136-145)
== END | disposition home or self-care (01) ==
LOC: MFPLAB 16:40
PROVIDERS: PCP Family Medicine; Referring Provider Family Medicine; Visit Provider Family Medicine
DX: R10.9 Unspecified abdominal pain (principal)
CPT/HCPCS: 36415; 80053; 85025

== ENCOUNTER → 2024-06-23 | Outpatient (CLI) | payer OTHER, SELFPAY | END | disposition home or self-care (01) | PROVIDERS: PCP Family Medicine; Referring Provider Family Medicine; Visit Provider Family Medicine | DX: R10.13 Epigastric pain (principal) | CPT/HCPCS: 76705 ==

== ENCOUNTER → 2025-03-17 | Outpatient (CLI) | payer OTHER, SELFPAY ==
[2025-03-17 11:32] LABS: AST(SGOT) 30 U/L (<=37); Alanine Aminotransfer ALT/SGPT 36 U/L (<=46); Albumin, Serum 4.2 g/dL (3.5-5.0); Alkaline Phosphatase 80 U/L (40-129); Anion Gap 14 (5-15); BUN 14 mg/dL (4-19); BUN/Creat Ratio 13.1 RATIO (10-20); Calcium,Total 9.8 mg/dL (7.6-11.0); Carbon Dioxide 23.6 mmol/L (21.0-32.0); Chloride 98 mmol/L (98-108); Cholesterol 270 mg/dL (<=200); Globulin 2.9 g/dL (2.2-4.2); Glucose 284 mg/dL (70-99); Low Density Lipoprotein Calc. 138 mg/dL; Potassium 3.7 mmol/L (3.3-5.1); Triglycerides 489 mg/dL; Very Low Density Lipoprotein 98 mg/dL (5-40); cholesterol:hdl ratio screen 7.87
== END | disposition home or self-care (01) ==
PROVIDERS: PCP Family Medicine; Referring Provider Family Medicine; Visit Provider Family Medicine
DX: I10 Essential (primary) hypertension (principal); E78.1 Pure hyperglyceridemia
CPT/HCPCS: 36415; 80053; 80061; 83036

== ENCOUNTER → 2025-03-24 | Outpatient (CLI) | payer OTHER, SELFPAY ==
--- OUTSIDE RECORDS SUMMARY | 2025-03-24 07:06 | XMS RPT_ITS | CCD ---
Author Organization [facility] Care Team Providers Care Carbon Rod Inserter Name Role Phone Navneet Oconnor Primary Care Provider NAVNEET OCONNOR Primary Care Unavail able STEPHEN COSME Attending Unavailable DALI GARVIN Attending Unavail able VU [place] Admitting Unavailab VU [place] Referring Unavailab NAVNEET [place] Primary Care Unavail able JYOTI MCGOWAN Attending Unavailable NAVNEET OCONNOR Primary Care Unavail able Dr. Dat Oconnor Primary Care Provider Luz Ashley Attending Provider Unavailable Dr. Dat Oconnor Referring Provider Dr. Cayden Yañez Attending Provider Dr. Cayden Yañez Other Provider [phone] NAVNEET OCONNOR Primary Care Unavailabl e DESTINEY WNITERS Attending Unavailable Dr. Dat Oconnor Primary Care Provider Dr. Dta Oconnor Referring Provider Dr. Kendall Leon Attending Provider Dr. Dat Oconnor Primary Care Provider [phone] Dr. Dat Oconnor Referring Provider Dr. Kendall Leon Attending Provider [phone] Navneet Oconnor Primary Care Provider [phone] Dr. Kendall Leon Attending Provider [phone] Ranney, Christopher Referring Unavailable Ranney, Christopher Primary Care Unavailable Mik Gutierrez Attending Unavailable Ranney, Christopher Referring Unavailable Ranney, Christopher Primary Care Unavailable Jose Kearney Attending Unavailable Ranney, Christopher Referring Unavailable Ranney, Christopher Primary Care Unavailable Jose Kearney Attending Unavailable Ranney, Christopher Primary Care Unavailable Ranney, Christopher Referring Unavailable Ranney, Christopher Attending Unavailable Ranney, Christopher Primary Care Unavailable Esteban Cross Attending Unavailable Ranney, Christopher Attending Unavailable Ranney, Christopher Primary Care Unavailable Ranney, Christopher Referring Unavailable Ranney, Christopher Attending Unavailable Ranney, Christopher Primary Care Unavailable Ranney, Christopher Referring Unavailable Ranney, Christopher Attending Unavailable [facility], [facility] Unavailable Ranney, Christopher Attending Unavailable Ranney, Christopher Primary Care Unavailable Ranney, Christopher Referring Unavailable Allergies Allergy Classification Reported Allergen(s) Allergy Type Date of Onset Reaction(s) Facility Corticosteroids (1 source) predniSONE; Translations: [PREDNISONE] Drug Allergy 9 [facility] Repository (11 sources) predniSONE; Translations: [PREDNISONE] Drug Allergy 9 Other (See Comments) [facility] (1 source) OTHER; Translations: [OTHER] Propensity to adverse reactions (disorder) 7 [facility] Repository (1 source) Amoxicillin Drug Allergy 5 [facility] Repository (1 source) Clavulanate Drug Allergy 5 [facility] Repository (1 source) predniSONE Drug Allergy 5 [facility] Repository Medications Current Medications Medication Drug Class(es) Dates Sig (Normalized) Sig (Original) amLODIPine 10 mg oral tablet (10 sources) Dihydropyridine Calcium Channel Anderson Start: 08-19-2023 take 10 mg by mouth once daily Amlodipine Active 10 MG PO DAILY August 19, 2023 1:00am Start: 07-23-2023 End: 08-19-2023 take 5 mg by mouth once daily Amlodipine Discontinued 5 MG PO DAILY July 23, 2023 11:31am August 19, 2023 4:13pm Start: 07-08-2023 End: 07-23-2023 Amlodipine Discontinued MG N ovember 2022 1:00am July 23, 2023 11:33am escitalopram 10 mg oral tablet (3 sources) Serotonin Reuptake Inhibitor Start: 08-19-2023 take 10 mg by mouth once daily Escitalopram Oxalate Active 10 MG PO DAILY August 19, 2023 1:00am fexofenadine hydrochloride 180 mg oral tablet (1 source) Histamine-1 Receptor Antagonist Start: 04-12-2009 fexofenadine (Jolie Allergy) 180 MG tablet Take by mouth . 0 04/12/2009 Active hydroCHLOROthiazide 25 mg oral tablet (3 sources) Thiazide Diuretic Start: 08-19-2023 take 25 mg by mouth once daily Hydrochlorothiazide Active 25 MG PO DAILY August 19, 2023 1:00am lisinopril 40 mg oral tablet (11 sources) Angiotensin Converting Enzyme Inhibitor Start: 07-23-2023 take 40 mg by mouth once daily Lisinopril Active 40 MG PO DAILY July 23, 2023 1:00am Start: 02-02-2021 End: 07-23-2023 take 20 mg by mouth once daily Lisinopril Discontinued 20 MG PO DAILY February 02, 2021 12:00am July 23, 2023 11:31am loratadine 10 mg oral tablet (10 sources) Start: 06-06-2018 take 1 tablet by mouth once daily Loratadine (Claritin) 10 mg tablet Active 10 MG PO DAILY June 06, 2018 12:00am loratadine 10 mg cap Take by mouth . 0 Active LORazepam 1 mg oral tablet (4 sources) Benzodiazepine Start: 07-08-2023 take 1 tablet by mouth three times daily Lorazepam (Ativan) 1 mg tablet Active 1 MG PO THREE TIMES A DAY July 08, 2023 1:00am NONFORMULARY (2 sources) NONFORMULARY Indications: OTC allergy [...] . 10 mL 0 10/27/2018 11/03/2018 Active Completed/Discontinued Medications Medication Drug Class(es) Dates Sig (Normalized) Sig (Original) amoxicillin 500 mg oral capsule (20 sources) Penicillin-class Antibacterial Start: 02-02-2021 End: 02-12-2021 take 500 mg by mouth three times daily Amoxicillin Discontinued 500 MG PO THREE TIMES A DAY 30 February 02, 2021 12:00am February 12, 2021 12:01am Start: 06-27-2019 End: 07-07-2019 take 1000 mg by mouth twice daily Amoxicillin Discontinued 1000 MG PO TWICE A DAY 40 June 27, 2019 1:00am July 07, 2019 1:07am Start: 06-06-2018 End: 04-21-2019 take 875 mg by mouth twice daily Amoxicillin Discontinued 875 MG PO TWICE A DAY June 06, 2018 12:00am April 21, 2019 5:02pm amoxicillin 875 mg / clavulanate 125 mg oral tablet (8 sources) Penicillin-class Antibacterial Start: 09-03-2021 End: 09-13-2021 take 1 tablet by mouth every twelve hours Amoxicillin-Pot Clavulanate Discontinued 1 TABLET PO Q12H 20 September 03, 2021 1:00am September 13, 2021 1:01am Problems Active Problems Problem Classification Problem Date Documented Date Episodic/Chronic Abdominal hernia (3 sources) Unspecified abdominal hernia without obstruction or gangrene; Translations: [Hernia] 07-23-2023 Episodic Anxiety disorders (4 sources) Anxiety; Translations: [Anxiety disorder, unspecified] 07-08-2023 Chronic Conditions associated with dizziness or vertigo (1 source) Dizziness and giddiness; Translations: [Dizziness] Onset: 06-25-2023 Episodic Diabetes mellitus with complications (3 sources) Type II diabetes mellitus uncontrolled; Translations: [Uncontrolled type 2 diabetes mellitus] 07-23-2023 Chronic Disorders of lipid metabolism (1 source) Pure hyperglyceridemia; Translations: [Pure hyperglyceridemia] Onset: 2025 Chronic Disorders of teeth and jaw (5 sources) Dental caries; Translations: [Dental caries, unspecified] 02-02-2021 Episodic Essential hypertension (11 sources) Essential (primary) hypertension; Translations: [Hypertensive disorder] Onset: 06-25-2023 07-08-2023 Chronic Immunizations and screening for infectious disease (13 sources) Patient encounter status; Translations: [Encounter for laboratory testing for COVID-19 virus] 05-19-2021 Episodic Inflammation; infection of eye (except that caused by tuberculosis or sexually transmitteddisease) (1 source) Unspecified acute conjunctivitis, bilateral; Translations: [Acute conjunctivitis of both eyes, unspecified acute conjunctivitis type] Episodic Other hereditary and degenerative nervous system conditions (3 sources) Restless legs; Translations: [Restless legs syndrome] 07-23-2023 Chronic Other screening for suspected conditions (not mental disorders or infectious disease) (3 sources) Encounter for screening for malignant neoplasm of colon; Translations: [Special screening for malignant neoplasms of colon] Onset: 05-30-2024 Episodic Other upper respiratory disease (5 sources) Nasal congestion; Translations: [Nasal congestion] 05-19-2021 Episodic Other upper respiratory infections (10 sources) Upper respiratory infection; Translations: [Acute upper respiratory infection, unspecified] 04-21-2019 Episodic Residual codes; unclassified (1 source) Other general symptoms and signs; Translations: [Suspected Covid-19 Virus Infection] Episodic Syncope (3 sources) Syncope; Translations: [Syncope and collapse] 07-23-2023 Episodic Past or Other Problems Problem Classification Problem Date Documented Da te Episodic/Chronic Abdominal pain (2 sources) Epigastric pain; Translations: [Unspecified abdominal pain] Onset: 07-06-2024 Episodic Other gastrointestinal disorders (1 source) Abdominal distension (gaseous); Translations: [Abdominal distension (gaseous)] Onset: 06-24-2024 Episodic Unclassified (8 sources) DUST AND GRASS ALLERGY 03-06-2022 Results Test Name Value Interpretation Reference Range Facility Hemoglobin A1con 03-20-2025 HbA1c (Bld) [Mass fraction] 11.3 % High <=5.6 [facility] Comment on above: Order Comment: Comme nts: repeat after 1 L Y Result Comment: Norm al < 5.7 % Prediabetic 5.7 - 6.4 % Diabetic >or= 6.5 % Please note range changes. Performed By: #### L 503.6007 #### [facility] [address] [place], [address] Comprehensive Metabolic Prof ilon 2025 Albumin [Mass/Vol] 4.2 g/dL Normal 3.5-5.0 [facility] Comment on above: Order Comment: Order Date: 02/13/25 Order Info: [id number] - CMP Order Info: [id number] - LIPID Performed By: #### L 500.4100, L500.4050 #### [facility] [address] [place], [address] Albumin/Globulin [Mass ratio] 1.4 {ratio} Normal 0.9-2.4 [facility] Comment on above: Order Comment: Order Date: 02/13/25 Order Info: [id number] - CMP Order Info: [id number] - LIPID Performed By: #### L 500.4100, L500.4050 #### [facility] [address] [place], [address] ALK PHOS 80 U/L Normal 40-129 [facility] Comment on above: Order Comment: Order Date: 02/13/25 Order Info: [id number] - CMP Order Info: [id number] - LIPID Performed By: #### L 500.4100, L500.4050 #### [facility] [address] [place], [address] ALT [Catalytic activity/Vol] 36 U/L Normal <=46 [facility] Comment on above: Order Comment: Order Date: 02/13/25 Order Info: 0786-1 - CMP Order Info: [id number] - LIPID Performed By: #### L 500.4100, L500.4050 #### [facility] [address] [place], [address] AST [Catalytic activity/Vol] 30 U/L Normal <=37 [facility] Comment on above: Order Comment: Order Date: 02/13/25 Order Info: 0786-1 - CMP Order Info: [id number] - LIPID Performed By: #### L 500.4100, L500.4050 #### [facility] [address] [place], [address] Bilirubin [Mass/Vol] 0.46 mg/dL Normal 0.00-1.30 [facility] Comment on above: Order Comment: Order Date: 02/13/25 Order Info: 0786-1 - CMP Order Info: [id number] - LIPID Performed By: #### L 500.4100, L500.4050 #### [facility] [address] [place], [address] BUN/CRE 13.1 RATIO Normal 10-20 [facility] Comment on above: Order Comment: Order Date: 02/13/25 Order Info: 07-1 - CMP Order Info: [id number] - LIPID Performed By: #### L 500.4100, L500.4050 #### [facility] [address] [place], [address] Calcium [Mass/Vol] 9.8 mg/dL Normal 7.6-11.0 [facility] Comment on above: Order Comment: Order Date: 02/13/25 Order Info: 0786- - CMP Order Info: [id number] - LIPID Performed By: #### L 500.4100, L500.4050 #### [facility] [address] [place], [address] Chloride [Moles/Vol] 98 mmol/L Normal 98-108 [facility] Comment on above: Order Comment: Order Date: 02/13/25 Order Info: [id number] - CMP Order Info: [id number] - LIPID Performed By: #### L 500.4100, L500.4050 #### [facility] [address] [place], [address] CO2 [Moles/Vol] 23.6 mmol/L Normal 21.0-32.0 [facility] Comment on above: Order Comment: Order Date: 02/13/25 Order Info: [id number] - CMP Order Info: [id number] - LIPID Performed By: #### L 500.4100, L500.4050 #### [facility] [address] [place], [address] Creatinine [Mass/Vol] 1.06 mg/dL Normal 0.70-1.20 [facility] Comment on above: Order Comment: Order Date: 02/13/25 Order Info: [id number] - CMP Order Info: [id number] - LIPID Performed By: #### L 500.4100, L500.4050 #### [facility] [address] [place], [address] GAP 14 Normal 5-15 [facility] Comment on above: Order Comment: Order Date: 02/13/25 Order Info: 07 - CMP Order Info: [id number] - LIPID Performed By: #### L 500.4100, L500.4050 #### [facility] [address] [place], [address] GFR/1.73 sq M.predicted among non-blacks MDRD (S/P/Bld) [Vol rate/Area] 84 mL/min/{1.73_m2} Normal >60 [facility] Comment on above: Order Comment: Order Date: 02/13/25 Order Info: 07 - CMP Order Info: [id number] - LIPID Result Comment: mL/m in/1.73m2 CKD-EPI Creatinine Equation (2020) Performed By: #### L 500.4100, L500.4050 #### [facility] [address] [place], [address] Globulin (S) [Mass/Vol] 2.9 g/dL Normal 2.2-4.2 [facility] Comment on above: Order Comment: Order Date: 02/13/25 Order Info: 0786- - CMP Order Info: [id number] - LIPID Performed By: #### L 500.4100, L500.4050 #### [facility] [address] [place], [address] Glucose [Mass/Vol] 284 mg/dL High 70-99 [facility] Comment on above: Order Comment: Order Date: 02/13/25 Order Info: 0786-1 - CMP Order Info: [id number] - LIPID Performed By: #### L 500.4100, L500.4050 #### [facility] [address] [place], [address] Potassium [Moles/Vol] 3.7 mmol/L Normal 3.3-5.1 [facility] Comment on above: Order Comment: Order Date: 02/13/25 Order Info: 0786-1 - CMP Order Info: [id number] - LIPID Performed By: #### L 500.4100, L500.4050 #### [facility] [address] [place], [address] Sodium [Moles/Vol] 136 mmol/L Normal 133-145 [facility] Comment on above: Order Comment: Order Date: 02/13/25 Order Info: 0786-1 - CMP Order Info: [id number] - LIPID Performed By: #### L 500.4100, L500.4050 #### [facility] [address] [place], [address] T PROT 7.1 g/dL Normal 5.9-8.4 [facility] Comment on above: Order Comment: Order Date: 02/13/25 Order Info: [id number] - CMP Order Info: [id number] - LIPID Performed By: #### L 500.4100, L500.4050 #### [facility] [address] [place], [address] Urea nitrogen [Mass/Vol] 14 mg/dL Normal 4-19 [facility] Comment on above: Order Comment: Order Date: 02/13/25 Order Info: 0786-1 - CMP Order Info: [id number] - LIPID Performed By: #### L 500.4100, L500.4050 #### [facility] [address] [place], [address] Lipid Profileon 2025 CHOL:HDL 7.87 Normal [facility] Comment on above: Order Comment: Order Date: 02/13/25 Order Info: 0786-1 - CMP Order Info: [id number] - LIPID Performed By: #### L 500.4100, L500.4050 #### [facility] [address] [place], [address] Cholesterol [Mass/Vol] 270 mg/dL High <=200 [facility] Comment on above: Order Comment: Order Date: 02/13/25 Order Info: 07 - CMP Order Info: [id number] - LIPID Result Comment: Chol esterol level, Desirable <200 mg/dL Borderline high cholesterol 200-239 mg/dL High cholesterol >=240 mg/dL Recommendations of the NCEP Adult Treatment Panel for the following risk-cutoff thresholds for the [place] population. Performed By: #### L 500.4100, L500.4050 #### [facility] [address] [place], [address] Cholesterol in HDL [Mass/Vol] 34 mg/dL Low [facility] Comment on above: Order Comment: Order Date: 02/13/25 Order Info: 0786 - CMP Order Info: [id number] - LIPID Result Comment: Isha onal Cholesterol Education Program (NCEP) guidelines: <40 mg/dL: Low HDL-cholesterol (major risk factor for CHD) >= 60 mg/dL: High HDL-cholesterol (negative risk factor for CHD) HDL-cholesterol is affected by a number of factors, e.g. smoking, exercise, hormones, sex and age. Performed By: #### L 500.4100, L500.4050 #### [facility] [address] [place], [address] Cholesterol in LDL [Mass/Vol] 138 mg/dL Normal [facility] Comment on above: Order Comment: Order Date: 02/13/25 Order Info: 0786- - CMP Order Info: [id number] - LIPID Result Comment: Bord dmqrdg=095-209 mg/dL Higher Kcdd=730 mg/dL or greater Friedwald Equation for LDL-C Performed By: #### L 500.4100, L500.4050 #### [facility] [address] [place], [place], [address] Cholesterol in VLDL [Mass/Vol] 98 mg/dL High 5-40 [facility] Comment on above: Order Comment: Order Date: 02/13/25 Order Info: [id number] - CMP Order Info: [id number] - LIPID Performed By: #### L 500.4100, L500.4050 #### [facility] [address] [place], [address] Triglyceride [Mass/Vol] 489 mg/dL High [facility] Comment on above: Order Comment: Order Date: 02/13/25 Order Info: [id number] - CMP Order Info: [id number] - LIPID Result Comment: The drugs N-Acetylcysteine and Metamizole may falsely depress this assay. Normal range: <150 mg/dL Borderline High: 150-199 mg/dL High: 200-499 mg/dL Very High: >500 mg/dL Performed By: #### L 500.4100, L500.4054 #### [facility] [address] [place], [place], [address] Urgent Care Visit Reporton 0 09-28-2024 Urgent Care Visit Report [facility] [address], [address] [place], [place] [address] OFFICE VISIT Date of Service: 09/28/24 MR#: [id number] Acct: [id number] Name: DALE YOUSIF Rep #: [id number] : 1970 Provider: ISAAC Eckert Age/Sex: 54/M Location: [facility] Status: Signed Intake Vital Signs 08/29/24 06:32 09/28/24 16:13 Height 6 ft Weight: 221 lb 8 oz BMI 30.0 BP 120/80 132/68 H Blood Pressure Location Lt brachial Position Sitting Sitting Respiration 17 Pulse 89 110 H Pulse Source NIBP Temp 98.0 F 98.7 F Temp Source Oral Oral Pulse Oximetry (%) 99 97 Oxygen Delivery Method room air room air Intake Visit Reasons: concern for pink eye Chief Complaint: 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 Is patient in pain?: No Allergies amoxicillin (From Augmentin) Allergy (Verified 09/28/24 16:14) Upset Stomach clavulanic acid (From Augmentin) Allergy (Verified 09/28/24 16:14) Upset Stomach prednisone Adverse Reaction (Severe, Verified 09/28/24 16:14) Upset Stomach Medications ???Medication ???Instructions ???Recorded ???Confirmed ???Type lisinopril 40 mg tablet 40 mg PO DAILY 07/23/23 08/29/24 H istory tadalafil 20 mg tablet 20 mg PO Q3D PRN 03/07/24 08/29/24 History dicyclomine 10 mg capsule 10 mg PO TID PRN abdominal pain 3 05/31/24 08/29/24 Rx days #10 caps ondansetron 4 mg disintegrating 4 mg PO Q8H PRN PRN Nausea #10 tab s 05/31/24 08/29/24 Rx tablet amlodipine 10 mg tablet 10 mg PO DAILY #90 tabs 08/01/24 0 08/29/24 Rx hydrochlorothiazide 25 mg tablet 25 mg PO DAILY #90 tabs 08/01/24 0 08/29/24 Rx tobramycin 0.3 % eye drops 1 drp ophthalmic (eye) Q2H #5 mL 0 09/28/24 09/28/24 Rx Have you fallen in the past year?: No Nurse's Note: bilat eye red/itchy/crusting since last noc. hx of pink eye, feels same. PFSH Medical History Hernia Diabetes mellitus type 2, uncontrolled Syncope Restless legs Encounter for screening for malignant neoplasm of colon Hypertension DUST AND GRASS ALLERGY Surgical History Hx of shoulder surgery Social History Smoking Status: Never smoker alcohol intake: never substance use type: does not use HPI HPI Chief Complaint: bilat eye red/itchy/crusting Details: DALE YOUSIF, is a 54 M who presents to the office today for initial evaluation new onset OU eye conjunctival injection with exudate. No vision changes or eye globe pain. No complaints of fever, chills, sweats, lightheadedness/diz ziness, nausea/vomiting. No [id number] ophthalmic drops tried to assist, as well as ran out of drops from old Tobrex prescription he says states. No other associated symptoms and no other alleviating/aggrava ting factors. ROS Const Constitutional: No other (As above) Exam Const General: cooperative, healthy appearing and no acute distress Orientation: alert, awake and oriented x3 HENMT Head: normal to inspection Ears: hearing grossly normal bilaterally and external ears normal Nose: external nose normal and no nasal discharge Eyes General: appearance normal, both eyes and all related structures Other: Except OU conjunctival injection with exudate; negative limbus OU Neck Neck: normal visual inspection, no meningeal signs and supple Resp Effort Inspection: normal respiratory effort and able to speak in complete sentences Cardio Rate: regular rate Pulses: radial pulses present Skin General: no rashes or lesions noted Neuro General: patient alert, patient awake and patient oriented x3 Cognition: normal cognition Speech: speech normal Psych Appearance: grossly normal Mental Status: mental status grossly normal Mood: congruent mood Affect: normal affect Speech and Movement: speech and movement normal Attitude: cooperative Diagnoses Acute conjunctivitis H10.30 Assessment and Plan Assessment and Plan (1) Acute conjunctivitis: Status: Acute Plan: Tobrex drops as prescribed today to affected eye(s). Supportive measures as instructed today. Work excuse provided. Follow-up with PCP or ophthalmology in 2 to 3 days should symptoms not improve, sooner should symptoms only worsen or any other concerns develop. Patient states acknowledging understanding all the above Coding Level of Care Code Off vis,est,level 3 Assessment and Plan Assessment and Plan Medications: Refilled tobramycin 0.3% to affected eye while awake first 24 hours, then 3x/day on days 2-5 1 drp ophthalmic (eye) Q2H 5 mL 0RF Clinical Quality Measures Falls Risk Screening/Assistive Devices Have you fallen in the past year?: No (more content not included)... Normal [facility] Urgent Care Visit Reporton 0 08-29-2024 Urgent Care Visit Report [facility] [address] [place] [address] OFFICE VISIT Date of Service: 08/29/24 MR#: [id number] Acct: [id number] Name: DALE YOUSIF Rep #: [id number] : 1970 Provider: ISAAC Eckert Age/Sex: 54/M Location: [facility] Status: Signed Intake Vital Signs 07/28/24 16:49 08/29/24 06:32 Height 6 ft 6 ft Weight: 200 lb 221 lb 8 oz BMI 27.1 30.0 BP 128/86 H 120/80 Blood Pressure Location Lt brachial Position Sitting Sitting Respiration 16 Pulse 103 H 89 Pulse Source Monitor Temp 97 F L 98.0 F Temp Source Oral Oral Pulse Oximetry (%) 98 99 Oxygen Delivery Method room air room air Intake Visit Reasons: BILAT EYE SWELLING/IRRITATION Chief Complaint: sinus congestion Accompanied by: Self Allergies amoxicillin (From Augmentin) Allergy (Verified 08/29/24 06:39) Upset Stomach clavulanic acid (From Augmentin) Allergy (Verified 08/29/24 06:39) Upset Stomach prednisone Adverse Reaction (Severe, Verified 08/29/24 06:27) Upset Stomach Medications ???Medication ???Instructions ???Recorded ???Confirmed ???Type lisinopril 40 mg tablet 40 mg PO DAILY 07/23/23 08/29/24 History tadalafil 20 mg tablet 20 mg PO Q3D PRN 03/07/24 08/29/24 History dicyclomine 10 mg capsule 10 mg PO TID PRN abdominal pain 3 05/31/24 08/29/24 Rx days #10 caps ondansetron 4 mg disintegrating 4 mg PO Q8H PRN PRN Nausea #10 tabs 05/31/24 08/29/24 Rx tablet amlodipine 10 mg tablet 10 mg PO DAILY #90 tabs 08/01/24 08/29/24 Rx hydrochlorothiazide 25 mg tablet 25 mg PO DAILY #90 tabs 08/01/24 08/29/24 Rx benzonatate 200 mg capsule 200 mg PO TID PRN cough #20 caps 08/29/24 08/29/24 Rx tobramycin 0.3 % eye drops 1 drp ophthalmic (eye) Q2H #5 mL 08/29/24 08/29/24 Rx Nurse's Note: Patient has bilateral eye swelling and redness that started yesterday morning in the left eye. Patient states his eyes were crusted shut this morning and he cleaned his eyes last night. Patient denies any itchiness and pain. [facility] Medical History Hernia Diabetes mellitus type 2, uncontrolled Syncope Restless legs Encounter for screening for malignant neoplasm of colon Hypertension DUST AND GRASS ALLERGY Surgical History Hx of shoulder surgery Social History Smoking Status: Never smoker alcohol intake: never substance use type: does not use HPI HPI Chief Complaint: sinus congestion Details: DALE YOUSIF, is a 54 M who presents to the office today for initial evaluation in the [facility] for approximately 24 hour history of persistent cough, HERNANDEZ, fatigue, congestion/ runny nose, and OU conjunctival injection with exudate. Patient notes no complaints of vision changes or deep eye globe pain or chest pain or shortness of breath or dyspnea on exertion. Several close contacts recently dx???d w/ similar URI complaints. No ttbi-[id number]-[id number] taken to assist. No other associated symptoms and no other alleviating/aggrava ting factors. ROS Const Constitutional: No other (As above) Exam Const General: cooperative, healthy appearing and no acute distress Orientation: alert, awake and oriented x3 HENMT Head: normal to inspection Ears: hearing grossly normal bilaterally, external ears normal, TM's normal bilaterally and EAC's normal Nose: external nose normal, nares normal, septum normal and clear nasal discharge Face and sinus: normal facial exam, sinuses nontender and face symmetric Mouth: oral mucosae normal, lip normal, tongue normal and oropharynx normal Throat: posterior oropharynx normal, tonsils normal, uvula midline and no postnasal drainage Eyes General: appearance normal, both eyes and all related structures (except OU conjunctival injection with exudate; negative limbus OU) Neck Neck: normal visual inspection, full ROM, no lymphadenopathy, no meningeal signs and supple Neck mass: No Thyroid: thyroid normal Lymphatic: no lymphadenopathy noted Chest Chest palpation inspection: normal inspection of the chest Resp Effort Inspection: normal respiratory effort, able to speak in complete sentences and cough Quality of cough: wet (nonproductive in office today) Auscultation: Bilateral: Clear to Auscultation Cardio Palpation: normal PMI Rate: tachycardic Rhythm: regular rhythm Heart Sounds: S1 normal, S2 normal, no gallops, no murmurs and no rubs Pulses: radial pulses present Skin General: no rashes or lesions noted Neuro General: patient alert, patient awake and patient oriented x3 Cognition: normal cognition Speech: speech normal Psych Appearance: grossly normal Mental Status: mental status grossly normal M (more content not included)... Normal [facility]gent Care Visit Reporton 1 09-28-2023 Urgent Care Visit Report [facility] [address] , [address] [place] [address] OFFICE VISIT Date of Service: 07/28/24 MR#: [id number] Acct: [id number] Name: DALE YOUSIF Rep #: [id number] : 1970 Provider: ISAAC Nur Age/Sex: 54/M Location: [facility] Status: Signed Intake Vital Signs 05/31/24 07:15 07/28/24 16:49 Height 6 ft 6 ft Weight: 200 lb BMI 27.1 BP 128/86 H Blood Pressure Location Lt brachial Position Sitting Respiration 16 Pulse 103 H Pulse Source Monitor Temp 97 F L Temp Source Oral Pulse Oximetry (%) 98 Oxygen Delivery Method room air Intake Visit Reasons: SINUS CONGESTION Chief 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: 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 Accompanied by: Self Is patient in pain?: No Allergies prednisone Adverse Reaction (Severe, Verified 07/28/24 16:50) Upset Stomach Medications ???Medication ???Instructions ???Recorded ???Confirmed ???Type lisinopril 40 mg tablet 40 mg PO DAILY 07/23/23 07/28/24 History amlodipine 10 mg tablet 10 mg PO DAILY #90 tabs 08/19/23 07/28/24 Rx hydrochlorothiazide 25 mg tablet 25 mg PO DAILY #90 tabs 08/19/23 07/28/24 Rx tadalafil 20 mg tablet 20 mg PO Q3D PRN 03/07/24 07/28/24 History dicyclomine 10 mg capsule 10 mg PO TID PRN abdominal pain 3 10/15/24 12/12/24 Rx days #10 caps ondansetron 4 mg disintegrating 4 mg PO Q8H PRN PRN Nausea #10 tabs 05/31/24 07/28/24 Rx tablet amoxicillin 875 mg-potassium 1 tab PO Q12H 10 days #20 tabs 07/28/24 07/28/24 Rx clavulanate 125 mg tablet Nurse's Note: pt states he has had sinus congestion for over 3-4 weeks pt declined testing for covid/ flu PFSH Medical History Hernia Diabetes mellitus type 2, uncontrolled Syncope Restless legs Encounter for screening for malignant neoplasm of colon Hypertension D[employer] 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 Patient denies hemoptysis, shortness of breath or difficulty breathing. No nausea, vomiting or diarrhea. No other associated symptoms or alleviating/aggrava ting factors. ROS Const Constitutional: Positive for other (6 system ROS completed with pertinent findings in the HPI otherwise normal.) Exam Const General: cooperative and healthy appearing [facility] Head: normal to inspection Ears: hearing grossly normal bilaterally, TM's normal bilaterally and EAC's normal Nose: nasal discharge purulent Face and sinus: sinus tenderness frontal and maxillary Mouth: oral mucosae normal Throat: abnormal tonsil bilaterally erythema and hypertrophy 1+ and postnasal drainage Resp Effort Inspection: normal respiratory effort Auscultation: Bilateral: Clear to Auscultation Cardio Palpation: normal PMI Rate: regular rate Rhythm: regular rhythm Neuro General: patient alert and CN's II-XI intact bilaterally Psych Appearance: grossly normal Mental Status: mental status grossly normal Coding Level of Care Code Off vis,new,level 3 Diagnoses Acute sinusitis J01.90 Assessment and Plan Assessment and Plan (1) Acute sinusitis: Status: Acute Medications: New amoxicillin-pot clavulanate 875-125 mg 1 TAB PO Q12H 20 tabs 0RF 10 days J01.90 - Acute sinusitis, unspecified Plan Augmentin as prescribed today. Encouraged to get plenty of rest, drink lots of clear liquids, and use Tylenol or Ibuprofen (unless contraindicated) for fever and comfort. Patient also educated on other symptomatic management techniques. To be seen in 7-10 days if no improvement; sooner if worsening of symptoms. Patient advised of potential red flags and when appropriate to report to the ED. Patient verbalized understanding and agreement with all the above. 07/28/24 1706 Date Mik Isaac Signature: Date (if applicable) CC: Normal [facility] Abdomen Limitedon 06-23-2024 Abdomen Limited [facility] Imaging Services [address] [place], [place] [address] Abdomen Limited MR#: [id number] Acct: [id number] Name: DALE YOUSIF Rep #: [id number] : 1970 M 54 From: Chau huntley MD PCP: Dr. Navneet Oconnor MD Status: [facility] Study: Abdomen Limited Date of Exam: 06/23/24 Exam# [id number] Ordering Dr: Navneet Oconnor -[id number] STUDY: ABDOMINAL ULTRASOUND - RIGHT UPPER QUADRANT REASON FOR VISIT: Male, 54 years old abd pain, dyspepsia TECHNIQUE: Ultrasound evaluation of the right upper quadrant was performed with real-time and static moyer-scale imaging. TECHNICAL QUALITY: Adequate. COMPARISON: Comparison is made with prior CT scan abdomen and pelvis dated May 31, 2024. FINDINGS: Liver: The liver measures 16.6 cm. There is increased echogenicity consistent with fatty infiltration. The bile ducts are within normal limits. There is hepatic color flow. The direction of portal flow is hepatopetal. There is no demonstrated mass lesion. Gallbladder: Normal distended gallbladder. The gallbladder wall measures 3 mm. There is a negative sonographic Griffiths''s sign. There is no pericholecystic fluid. There are no gallstones. Common Bile Duct (C.B.D.): The common bile duct measures 4 mm. Pancreas: Normal size of the head, body and tail of the pancreas. There is normal echogenicity of the pancreas. There is no demonstrated pancreatic mass or cyst. Right Kidney: Normal size of the right kidney. The right kidney measures 11.4 cm x 5.2 cm x 6.7 cm. Normal renal cortex. The right cortex measures 2.1 cm. There is no demonstrated renal mass or cyst. There is no right hydronephrosis. US/Abdomen Limited IMPRESSION: Fatty infiltration of the liver. Electronically Signed: Chau Parker MD at 15:07 EST Reading Location ID and State: [address] [place] [address] , Service support , CC: Dr. Navneet Oconnor MD Customs Inspector: Signed Normal [facility] CBC W/Diff, Automatedon 10-3 0-2023 Absolute Lymph 2.38 X10 3/uL Normal 0.83-4.51 [facility] Comment on above: Order Comment: Order Date: 06/15/24 Order Info: 0184-1 - CBCD Performed By: #### L 100.0100, L500.4050 #### [facility] [address] [place], [address] Absolute Neut 3.9 X10 3/uL Normal 2.0-7.7 [facility] Comment on above: Order Comment: Order Date: 06/15/24 Order Info: 0184-1 - CBCD Performed By: #### L 100.0100, L500.4050 #### [facility] [address] [place], [address] Basophils/100 WBC (Bld) 0.7 % Normal 0-1 [facility] Comment on above: Order Comment: Order Date: 06/15/24 Order Info: 0184-1 - CBCD Performed By: #### L 100.0100, L500.4050 #### [facility] [address] [place], [address] Eosinophils/100 WBC (Bld) 2.9 % Normal 0-5 [facility] Comment on above: Order Comment: Order Date: 06/15/24 Order Info: 0184-1 - CBCD Performed By: #### L 100.0100, L500.4050 #### [facility] [address] [place], [address] Erythrocyte distribution width (RBC) [Ratio] 12.1 % Normal 11.6-14.6 [facility] Comment on above: Order Comment: Order Date: 06/15/24 Order Info: 0184-1 - CBCD Performed By: #### L 100.0100, L500.4050 #### [facility] [address] [place], [address] Hematocrit (Bld) [Volume fraction] 43.5 % Normal 40-54 [facility] Comment on above: Order Comment: Order Date: 06/15/24 Order Info: 0184-1 - CBCD Performed By: #### L 100.0100, L500.4050 #### [facility] [address] [place], [address] Hemoglobin (Bld) [Mass/Vol] 15.5 g/dL Normal 13.0-16.5 [facility] Comment on above: Order Comment: Order Date: 06/15/24 Order Info: 0184-1 - CBCD Performed By: #### L 100.0100, L500.4050 #### [facility] [address] [place], [address] IG% 0.700 Normal 0.0-0.9 [facility] Comment on above: Order Comment: Order Date: 06/15/24 Order Info: 0184- - CBCD Result Comment: IG% - Immature Granulocytes (promyelocytes, myelocytes and metamyelocytes) > 1% indicates that a LEFT SHIFT is Present. Performed By: #### L 100.0100, L500.4050 #### [facility] [address] [place], [address] Lymphocytes/100 WBC (Bld) 33.3 % Normal 19-41 [facility] Comment on above: Order Comment: Order Date: 06/15/24 Order Info: 0184- - CBCD Performed By: #### L 100.0100, L500.4050 #### [facility] [address] [place], [address] MCH (RBC) [Entitic mass] 30.2 pg Normal 27.0-32.0 [facility] Comment on above: Order Comment: Order Date: 06/15/24 Order Info: 0184- - CBCD Performed By: #### L 100.0100, L500.4050 #### [facility] [address] [place], [address] MCHC (RBC) [Mass/Vol] 35.6 g/dL Normal 32-36 [facility] Comment on above: Order Comment: Order Date: 06/15/24 Order Info: 0184- - CBCD Performed By: #### L 100.0100, L500.4050 #### [facility] [address] [place], [address] MCV (RBC) [Entitic vol] 84.6 fL Normal 80-94 [facility] Comment on above: Order Comment: Order Date: 06/15/24 Order Info: 0184-1 - CBCD Performed By: #### L 100.0100, L500.4050 #### [facility] [address] [place], [address] Monocytes/100 WBC (Bld) 8.1 % Normal 0-10 [facility] Comment on above: Order Comment: Order Date: 06/15/24 Order Info: 0184-1 - CBCD Performed By: #### L 100.0100, L500.4050 #### [facility] [address] [place], [address] Neutrophils/100 WBC (Bld) 54.3 % Normal 47-70 [facility] Comment on above: Order Comment: Order Date: 06/15/24 Order Info: 0184-1 - CBCD Performed By: #### L 100.0100, L500.4050 #### [facility] [address] [place], [address] Nucleated RBC (Bld) [#/Vol] 0 10*3/uL Normal 0-5 [facility] Comment on above: Order Comment: Order Date: 06/15/24 Order Info: 0184-1 - CBCD Performed By: #### L 100.0100, L500.4050 #### [facility] [address] [place], [address] Platelet mean volume (Bld) [Entitic vol] 10.4 fL Normal 6.2-12.0 [facility] Comment on above: Order Comment: Order Date: 06/15/24 Order Info: 0184-1 - CBCD Performed By: #### L 100.0100, L500.4050 #### [facility] [address] [place], [address] Platelets (Bld) [#/Vol] 248 10*3/uL Normal 150-450 [facility] Comment on above: Order Comment: Order Date: 06/15/24 Order Info: 0184-1 - CBCD Performed By: #### L 100.0100, L500.4050 #### [facility] [address] [place], [address] RBC (Bld) [#/Vol] 5.14 10*6/uL Normal 4.6-6.2 [facility] Comment on above: Order Comment: Order Date: 06/15/24 Order Info: 0184-1 - CBCD Performed By: #### L 100.0100, L500.4050 #### [facility] [address] [place], [address] RDW SD 36.6 fl Normal 35.1-43.9 [facility] Comment on above: Order Comment: Order Date: 06/15/24 Order Info: 0184- - CBCD Performed By: #### L 100.0100, L500.4050 #### [facility] [address] [place], [address] WBC (Bld) [#/Vol] 7.1 10*3/uL Normal 4.4-11.0 [facility] Comment on above: Order Comment: Order Date: 06/15/24 Order Info: 0184-1 - CBCD Performed By: #### L 100.0100, L500.4050 #### [facility] [address] [place], [address] Comprehensive Metabolic Prof ilon 06-15-2024 Albumin [Mass/Vol] 4.0 g/dL Normal 3.2-5.0 [facility] Comment on above: Order Comment: Order Date: 06/15/24 Order Info: 0786-1 - CMP Performed By: #### L 100.0100, L500.4050 #### [facility] [address] [place], [address] Albumin/Globulin [Mass ratio] 1.1 {ratio} Normal 0.9-2.4 [facility] Comment on above: Order Comment: Order Date: 06/15/24 Order Info: 0786-1 - CMP Performed By: #### L 100.0100, L500.4050 #### [facility] [address] [place], [address] ALK P 76 U/L Normal 45-117 [facility] Comment on above: Order Comment: Order Date: 06/15/24 Order Info: 0786-1 - CMP Performed By: #### L 100.0100, L500.4050 #### [facility] [address] [place], [address] ALT [Catalytic activity/Vol] 47 U/L Normal 16-61 [facility] Comment on above: Order Comment: Order Date: 06/15/24 Order Info: 0786-1 - CMP Performed By: #### L 100.0100, L500.4050 #### [facility] [address] [place], [address] AST [Catalytic activity/Vol] 22 U/L Normal 15-37 [facility] Comment on above: Order Comment: Order Date: 06/15/24 Order Info: 0786-1 - CMP Performed By: #### L 100.0100, L500.4050 #### [facility] [address] [place], [address] Bilirubin [Mass/Vol] 0.40 mg/dL Normal 0.20-1.00 [facility] Comment on above: Order Comment: Order Date: 06/15/24 Order Info: 0786-1 - CMP Result Comment: For patients on eltrombopag therapy, use of Dimension [place] TBIL is not recommended. Performed By: #### L 100.0100, L500.4050 #### [facility] [address] [place], [address] BUN/CRE 12.1 RATIO Normal 10-20 [facility] Comment on above: Order Comment: Order Date: 06/15/24 Order Info: 0786-1 - CMP Performed By: #### L 100.0100, L500.4050 #### [facility] [address] [place], [address] CA,Total 9.4 mg/dL Normal 8.5-10.1 [facility] Comment on above: Order Comment: Order Date: 06/15/24 Order Info: 0786-1 - CMP Performed By: #### L 100.0100, L500.4050 #### [facility] [address] [place], [address] Chloride [Moles/Vol] 99 mmol/L Normal 98-107 [facility] Comment on above: Order Comment: Order Date: 06/15/24 Order Info: 07-1 - CMP Performed By: #### L 100.0100, L500.4050 #### [facility] [address] [place], [address] CO2 [Moles/Vol] 30.0 mmol/L Normal 21.0-32.0 [facility] Comment on above: Order Comment: Order Date: 06/15/24 Order Info: 0786-1 - CMP Performed By: #### L 100.0100, L500.4050 #### [facility] [address] [place], [address] Creatinine [Mass/Vol] 1.07 mg/dL Normal 0.70-1.30 [facility] Comment on above: Order Comment: Order Date: 06/15/24 Order Info: 0786-1 - CMP Result Comment: The validity of the calculated GFR GFRAA in patients over 70 years has not been determined. Clinical correlation is essential. Performed By: #### L 100.0100, L500.4050 #### [facility] [address] [place], [address] EST GFR - AA 93 mL/min Normal >60 [facility] Comment on above: Order Comment: Order Date: 06/15/24 Order Info: 0786-1 - CMP Result Comment: Afri can [place] GFR Calc Performed By: #### L 100.0100, L500.4050 #### [facility] [address] [place], [address] GAP 5 Normal 5-15 [facility] Comment on above: Order Comment: Order Date: 06/15/24 Order Info: 0786-1 - CMP Performed By: #### L 100.0100, L500.4050 #### [facility] [address] [place], [address] GFR/1.73 sq M.predicted among non-blacks MDRD (S/P/Bld) [Vol rate/Area] 77 mL/min/{1.73_m2} Normal >60 [facility] Comment on above: Order Comment: Order Date: 06/15/24 Order Info: 0786-1 - CMP Result Comment: Non- GFR Calc Performed By: #### L 100.0100, L500.4050 #### [facility] [address] [place], [address] Globulin (S) [Mass/Vol] 3.6 g/dL Normal 2.2-4.2 [facility] Comment on above: Order Comment: Order Date: 06/15/24 Order Info: 0786-1 - CMP Performed By: #### L 100.0100, L500.4050 #### [facility] [address] [place], [address] Glucose [Mass/Vol] 256 mg/dL High 74-106 [facility] Comment on above: Order Comment: Order Date: 06/15/24 Order Info: 0786-1 - CMP Result Comment: Gluc ose result greater than or equal to 200 mg/dL suggests DIABETES MELLITUS per A.D.A. criteria. Performed By: #### L 100.0100, L500.4050 #### [facility] [address] [place], [address] Potassium [Moles/Vol] 3.5 mmol/L Normal 3.5-5.1 [facility] Comment on above: Order Comment: Order Date: 06/15/24 Order Info: 0786-1 - CMP Performed By: #### L 100.0100, L500.4050 #### [facility] [address] [place], [address] Sodium [Moles/Vol] 133 mmol/L Low 136-145 [facility] Comment on above: Order Comment: Order Date: 06/15/24 Order Info: 0786-1 - CMP Performed By: #### L 100.0100, L500.4050 #### [facility] [address] [place], [address] T PROT 7.6 g/dL Normal 6.4-8.2 [facility] Comment on above: Order Comment: Order Date: 06/15/24 Order Info: 0786-1 - CMP Performed By: #### L 100.0100, L500.4050 #### [facility] [address] [place], [address] Urea nitrogen [Mass/Vol] 13 mg/dL Normal 7-18 [facility] Comment on above: Order Comment: Order Date: 06/15/24 Order Info: 0786-1 - CMP Performed By: #### L 100.0100, L500.4050 #### [facility] [address] [place], [address] 12 Lead EKGon 05-31-2024 12 Lead EKG [facility] Cardiovascular Services [address] [place] [address] 12 Lead EKG 05/31/24 0747 MR#: [id number] Acct: [id number] Name: DALE YOUSIF Rep #: [id number] : 1970 54 From: Lazarus Bhatt MD Attending Dr: Status: DEP ER Ordering Dr: Esteban Cross DO Date: 05/31/24 Location: ED Sex: M C Admitted: Test Reason : GENERAL Blood Pressure : / mmHG Vent. Rate : 096 BPM Atrial Rate : 096 BPM P-R Int : 146 ms QRS Dur : 088 ms QT Int : 348 ms P-R-T Axes : 035 037 -01 degrees QTc Int : 439 ms Normal sinus rhythm Possible Inferior infarct , age undetermined Abnormal ECG Confirmed by Lazarus Bhatt ([id number]), communications editor TYLOR HERNANDEZ ([id number]) on 06/01/2024 9:23:00 AM Referred By: Confirmed By:Lazarus Bhatt 06/01/24922 Date Lazarus Bhatt MD CC: Dr. Navneet Oconnor MD; Dr. Esteban Cross DO Signed Normal [facility] Abdomen/Pelvis W IV Cont ONL Yo 05-31-2024 Abdomen/Pelvis W IV Cont ONLY [facility] Imaging Services [address] [place] [id number] Abdomen/Pelvis W IV Cont ONLY MR#: [id number] Acct: [id number] Name: DALE YOUSIF Rep #: [id number] : 1970 M 54 From: Franklin Reeder MD PCP: Dr. Navneet Oconnor MD Status: REG ER Study: Abdomen/Pelvis W IV Cont ONLY Date of Exam: Exam# [id number] Ordering Dr: Esteban Cross DO [id number] EXAM: CT ABDOMEN AND PELVIS WITH INTRAVENOUS CONTRAST CLINICAL INDICATION: Abdominal pain and bloating TECHNIQUE: Helically acquired images were obtained of the abdomen and pelvis with intravenous contrast. This CT exam was performed using one or more of the following dose reduction techniques: automated exposure control, adjustment of the mA and/or kV according to patient size, and/or use of iterative reconstruction technique. CONTRAST: IV 100mL Isovue-300 RADIATION DOSE: CTDIvol = 16.47 mGy, DLP = 1276.34 mGy-cm COMPARISON: CT abdomen and pelvis with contrast 10/13/2010. FINDINGS: LOWER THORAX: Linear atelectasis in the right lower lung zone. No cardiomegaly. No significant pericardial effusion. ABDOMEN: LIVER: Progression of now moderate asymmetric fatty infiltration of the liver. GALLBLADDER AND BILE DUCTS: Unremarkable. No calcified gallstones. No gallbladder distention or wall edema. No intra- or extrahepatic biliary ductal dilation. PANCREAS: Unremarkable. No focal cystic or solid mass. SPLEEN: Unremarkable. Normal size without focal cystic or solid mass. ADRENALS: Unremarkable. No nodules. KIDNEYS AND URETERS: Unremarkable. Normal renal size and position. No hydronephrosis. STOMACH AND BOWEL: Mild fluid-filled dilatation of small bowel loops. No focal inflammatory change. Normal stomach. Normal colon. PELVIS: APPENDIX: Normal. BLADDER: Unremarkable. REPRODUCTIVE: Unremarkable as visualized. No mass. ABDOMEN and PELVIS: INTRAPERITONEAL SPACE: Unremarkable. No ascites or other fluid collection. No free air. BONES/JOINTS: Unremarkable. No suspicious lytic or blastic abnormality. SOFT TISSUES: Unremarkable. No discrete abdominal or pelvic wall hernia. VASCULATURE: Unremarkable. Abdominal aorta is non-dilated. LYMPH NODES: Unremarkable. No enlarged lymph nodes. CT/Abdomen/Pelvis W IV Cont ONLY IMPRESSION: 1. Mild fluid-filled dilatation of small bowel loops may be secondary to enteritis but no bowel obstruction. 2. Moderate hepatic steatosis, previously mild hepatic steatosis. 3. No CT evidence of mass or lymphadenopathy in the abdomen and pelvis. Electronically Signed: Franklin Reeder MD at 9:35 EDT , CC: Dr. Navneet Oconnor MD; Dr. Esteban Cross DO Customs Inspector: Signed Normal [facility] CBC-Complete Blood Cnt No Di ffon 05-31-2024 Erythrocyte distribution width (RBC) [Ratio] 12.0 % Normal 11.6-14.6 [facility] Comment on above: Performed By: #### L 503.6005 #### [facility] [address] [place], [address] Hematocrit (Bld) [Volume fraction] 44.8 % Normal 40-54 [facility] Comment on above: Performed By: #### L 503.6005 #### [facility] [address] [place], [address] Hemoglobin (Bld) [Mass/Vol] 15.6 g/dL Normal 13.0-16.5 [facility] Comment on above: Performed By: #### L 503.6005 #### [facility] [address] [place], [address] MCH (RBC) [Entitic mass] 29.9 pg Normal 27.0-32.0 [facility] Comment on above: Performed By: #### L 503.6005 #### [facility] [address] [place], [address] MCHC (RBC) [Mass/Vol] 34.8 g/dL Normal 32-36 [facility] Comment on above: Performed By: #### L 503.6005 #### [facility] [address] [place], [address] MCV (RBC) [Entitic vol] 86.0 fL Normal 80-94 [facility] Comment on above: Performed By: #### L 503.6005 #### [facility] [address] [place], [address] Platelet mean volume (Bld) [Entitic vol] 10.3 fL Normal 6.2-12.0 [facility] Comment on above: Performed By: #### L 503.6005 #### [facility] [address] [place], [address] Platelets (Bld) [#/Vol] 224 10*3/uL Normal 150-450 [facility] Comment on above: Performed By: #### L 503.6005 #### [facility] [address] [place], [address] RBC (Bld) [#/Vol] 5.21 10*6/uL Normal 4.6-6.2 [facility] Comment on above: Performed By: #### L 503.6005 #### [facility] [address] [place], [address] RDW SD 37.9 fl Normal 35.1-43.9 [facility] Comment on above: Performed By: #### L 503.6005 #### [facility] [address] [place], [address] WBC (Bld) [#/Vol] 10.9 10*3/uL Normal 4.4-11.0 [facility] Comment on above: Performed By: #### L 503.6005 #### [facility] [address] [place], [address] Chest 1 View (Portable)on Chest 1 View (Portable) [facility] Imaging Services [address] [address] Chest 1 View (Portable) MR#: [id number] Acct: [id number] Name: DALE YOUSIF Rep #: [id number] : 1970 M 54 From: Franklin Reeder MD PCP: Dr. Navneet Oconnor MD Status: REG ER Study: Chest 1 View (Portable) Date of Exam: 05/31/24 Exam# [id number] Ordering Dr: Esteban Cross DO -[id number] EXAM: XR CHEST, 1 VIEW CLINICAL INDICATION: Near syncope TECHNIQUE: Frontal view of the chest. COMPARISON: 09/29/2005. FINDINGS: LUNGS AND PLEURAL SPACES: Discoid atelectasis in the right lower lung zone. No consolidation or edema. No pleural effusion. No pneumothorax. HEART: Unremarkable. Cardiac silhouette not enlarged. MEDIASTINUM: Central airways and mediastinal contour are unremarkable. BONES/JOINTS: Unremarkable. No acute fracture. SOFT TISSUES: Unremarkable. RAD/Chest 1 View (Portable) IMPRESSION: Discoid atelectases in the right lower lung zone otherwise negative chest radiograph and no significant interval change. Electronically Signed: Franklin Reeder MD at 9:31 EDT , CC: Dr. Navneet Oconnor MD; Dr. Esteban Cross DO Customs Inspector: Signed Normal [facility] Comprehensive Metabolic Prof ilon 05-31-2024 Albumin [Mass/Vol] 3.8 g/dL Normal 3.2-5.0 [facility] Comment on above: Order Comment: Comme nts: repeat after 1 L Y Performed By: #### L 503.6005 #### [facility] [address] [place], [address] Albumin/Globulin [Mass ratio] 1.0 {ratio} Normal 0.9-2.4 [facility] Comment on above: Order Comment: Comme nts: repeat after 1 L Y Performed By: #### L 503.6005 #### [facility] [address] [place], [address] ALK P 82 U/L Normal 45-117 [facility] Comment on above: Order Comment: Comme nts: repeat after 1 L Y Performed By: #### L 503.6005 #### [facility] [address] [place], [address] ALT [Catalytic activity/Vol] 51 U/L Normal 16-61 [facility] Comment on above: Order Comment: Comme nts: repeat after 1 L Y Performed By: #### L 503.6005 #### [facility] [address] [place], [address] AST [Catalytic activity/Vol] 30 U/L Normal 15-37 [facility] Comment on above: Order Comment: Comme nts: repeat after 1 L Y Performed By: #### L 503.6005 #### [facility] [address] [place], [address] Bilirubin [Mass/Vol] 0.60 mg/dL Normal 0.20-1.00 [facility] Comment on above: Order Comment: Comme nts: repeat after 1 L Y Result Comment: For patients on eltrombopag therapy, use of Dimension [place] TBIL is not recommended. Performed By: #### L 503.6005 #### [facility] [address] [place], [address] BUN/CRE 12.9 RATIO Normal 10-20 [facility] Comment on above: Order Comment: Comme nts: repeat after 1 L Y Performed By: #### L 503.6005 #### [facility] [address] [place], [address] CA,Total 10.0 mg/dL Normal 8.5-10.1 [facility] Comment on above: Order Comment: Comme nts: repeat after 1 L Y Performed By: #### L 503.6005 #### [facility] [address] [place], [address] Chloride [Moles/Vol] 102 mmol/L Normal 98-107 [facility] Comment on above: Order Comment: Comme nts: repeat after 1 L Y Performed By: #### L 503.6005 #### [facility] [address] [place], [address] CO2 [Moles/Vol] 25.0 mmol/L Normal 21.0-32.0 [facility] Comment on above: Order Comment: Comme nts: repeat after 1 L Y Performed By: #### L 503.6005 #### [facility] [address] [place], [address] Creatinine [Mass/Vol] 1.55 mg/dL High 0.70-1.30 [facility] Comment on above: Order Comment: Comme nts: repeat after 1 L Y Result Comment: The validity of the calculated GFR GFRAA in patients over 70 years has not been determined. Clinical correlation is essential. Performed By: #### L 503.6005 #### [facility] [address] [place], [address] ECRCL 68.90 ml/min Normal [facility] Comment on above: Order Comment: Comme nts: repeat after 1 L Y Performed By: #### L 503.6005 #### [facility] [address] [place], [address] EST GFR - AA 61 mL/min Normal >60 [facility] Comment on above: Order Comment: Comme nts: repeat after 1 L Y Result Comment: Afri can [place] GFR Calc Performed By: #### L 503.6005 #### [facility] [address] [place], [address] GAP 9 Normal 5-15 [facility] Comment on above: Order Comment: Comme nts: repeat after 1 L Y Performed By: #### L 503.6005 #### [facility] [address] [place], [address] GFR/1.73 sq M.predicted among non-blacks MDRD (S/P/Bld) [Vol rate/Area] 50 mL/min/{1.73_m2} Low >60 [facility] Comment on above: Order Comment: Comme nts: repeat after 1 L Y Result Comment: Non- GFR Calc Performed By: #### L 503.6005 #### [facility] [address] [place], [address] Globulin (S) [Mass/Vol] 3.9 g/dL Normal 2.2-4.2 [facility] Comment on above: Order Comment: Comme nts: repeat after 1 L Y Performed By: #### L 503.6005 #### [facility] [address] [place], [address] Glucose [Mass/Vol] 283 mg/dL High 74-106 [facility] Comment on above: Order Comment: Comme nts: repeat after 1 L Y Result Comment: Gluc ose result greater than or equal to 200 mg/dL suggests DIABETES MELLITUS per A.D.A. criteria. Performed By: #### L 503.6005 #### [facility] [address] [place], [address] Potassium [Moles/Vol] 3.9 mmol/L Normal 3.5-5.1 [facility] Comment on above: Order Comment: Comme nts: repeat after 1 L Y Performed By: #### L 503.6005 #### [facility] [address] [place], [address] Sodium [Moles/Vol] 136 mmol/L Normal 136-145 [facility] Comment on above: Order Comment: Comme nts: repeat after 1 L Y Performed By: #### L 503.6005 #### [facility] [address] [place], [address] T PROT 7.7 g/dL Normal 6.4-8.2 [facility] Comment on above: Order Comment: Comme nts: repeat after 1 L Y Performed By: #### L 503.6005 #### [facility] [address] [place], [address] Urea nitrogen [Mass/Vol] 20 mg/dL High 7-18 [facility] Comment on above: Order Comment: Comme nts: repeat after 1 L Y Performed By: #### L 503.6005 #### [facility] [address] [place], [address] Emergency Department Summary on 05-31-2024 Emergency Department Summary [facility] Medical Records Department [address] [place] [address] Emergency Department Summary 05/31/24 MR#: [id number] Acct: [id number] Name: DALE YOUSIF Rep #: [id number] : 1970 54 From: Esteban Cross DO PCP: Dr. Navneet Oconnor MD Status:REG ER Location: ED HPI History of Present Illness Chief Complaint: Abd Pain [facility] Medical History Hernia Diabetes mellitus type 2, uncontrolled Syncope Restless legs Encounter for screening for malignant neoplasm of colon Hypertension [employer] Home Medications ???Medication ???Instructions ???Recorded ???Last Taken ???Type lisinopril 40 mg tablet 40 mg PO DAILY 07/23/23 Unknown History amlodipine 10 mg tablet 10 mg PO DAILY #90 tabs 08/19/23 Unknown Rx hydrochlorothiazide 25 mg tablet 25 mg PO DAILY #90 tabs 08/19/23 Unknown Rx tadalafil 20 mg tablet 20 mg PO Q3D PRN 03/07/24 Unknown History dicyclomine 10 mg capsule 10 mg PO TID PRN abdominal pain 3 05/31/24 Unknown Rx days #10 caps ondansetron 4 mg disintegrating 4 mg PO Q8H PRN PRN Nausea #10 tabs 05/31/24 Unknown Rx tablet Allergy/AdvReac Type Severity Reaction Status Date / Time prednisone AdvReac Severe Upset Verified 05/31/24 07:15 Stomach Surgical History Hx of shoulder surgery Social History Smoking Status: Never smoker alcohol intake: never substance use type: does not use EXAM Physical Exam Const Vital Signs: 05/31/24 07:15 05/31/24 09:14 05/31/24 11:00 Temperature 98.3 F Temperature Source Oral Pulse Rate 116 H 91 93 Respiratory Rate 18 19 H 18 Blood Pressure 128/91 H 123/87 H 124/85 H Blood Pressure Mean 103 99 98 Pulse Ox 96 95 Oxygen Delivery Method Room Air Room Air MDM MDM MDM Narrative Medical decision making narrative: HISTORY OF PRESENT ILLNESS: 54-year-old male presents with bloating after eating last night. States he is having vomiting or having diarrhea he states that he felt so uncomfortable that he nearly passed out. He does start after dinner. States he ate less than usual. States he became lightheaded felt warm noted he was sweaty and pale. He further states this morning he woke up and continued to feel bloated so he presented for further evaluation. The patient denies recent surgery in the last 4 weeks or immobilization in the last 3 days, denies previous diagnosis of DVT or PE, hemoptysis, unilateral leg swelling or malignancy with treatment the last 6 months or palliative. No estrogen use noted. Denies chest pain or palpitations. Denies shortness of breath. Denies cough fever chills. Denies leg swelling. Denies family history of premature cardiac . No CP currently. REVIEW OF SYSTEMS: Pertinent positives: Abdominal bloating, near syncope Pertinent negatives: Chest pain, shortness of breath, leg swelling PHYSICAL EXAM: Nursing triage notes reviewed, Vital signs reviewed Constitutional: please see mdm HENT: MMM Eyes: Pupils equal round and reactive to light, Extraocular muscles intact Neck: No stridor, no JVD, full neck ROM Lungs: Clear to auscultation, No wheezing or rales. No increased work of breathing, no conversational dyspnea, no accessory muscle use, no nasal flaring. No respiratory distress noted Heart: Regular rate and rhythm, No murmurs, No rubs and No gallops, 2+ distal pulses (radial, femoral, posterior tibial) in all extremities Abdomen: Soft, there is no tenderness, rigidity, rebound or guarding, no obvious peritoneal signs, no palpable pulsatile abdominal masses, no auscultated abdominal bruit : No CVAT Extremities: No edema Neuro: No focal neurological deficits, cranial nerves II through XII intact, 5/5 strength in all extremities. Intact sensation to light touch in all extremities, 2+ reflexes bilateral patella tendons. Normal gait. No ataxia. Skin: No rash or lesions noted MEDICAL DECISION MAKING: Chief Complaint: Abdominal pain, near syncope External records reviewed: Reviewed prior allergies, problem list, vital signs, medications. Reviewed prior imaging study Factors affecting care: Hypertension, hyperlipidemia Social determinants of health: none History obtained from others: Patient's Consults: none [facility] Narrative: The patient was initially hemodynamically stable, tachycardic with a rate of 116 otherwise afebrile and nontoxic-appearing. I considered the following differential diagnosis: Acute pancreatitis, gallbladder etiology, hepatobiliary obstruction, perforation, ACS, arrhythmia, anemia, pneumonia, electrolyte disturbance I obtained a broad lab and imaging wor (more content not included)... Normal [facility] L501.4020on 05-31-2024 TROPONIN-I HS 4 pg/mL Normal 3.0-78.0 [facility] Comment on above: Result Comment: Plea se Note: New Test Units and Gender Specific Reference Ranges. For more information see Policy Stat Procedure [place] High Sensitivity Troponin (TNIH) and attachments. Performed By: #### L 503.6005 #### [facility] [address] [place], [place], [address] L501.5425on 05-31-2024 TROPONIN-I HS 4 pg/mL Normal 3.0-78.0 [facility] Comment on above: Order Comment: Comme nts: repeat after 1 L Y Result Comment: Plea se Note: New Test Units and Gender Specific Reference Ranges. For more information see Policy Stat Procedure [place] High Sensitivity Troponin (TNIH) and attachments. Performed By: #### L 503.6005 #### [facility] [address] [place], [place], [address] Lactic Acidon 05-31-2024 Lactate [Moles/Vol] 2.3 mmol/L Invalid Interpretation Code 0.4-1.9 [facility] Comment on above: Order Comment: Comme nts: repeat after 1 L Y Result Comment: Crit ical Result(s) Called at: 11:27:06 05/31/2024 by: Suellen Flanagan. Results read back by same. Performed By: #### L 503.6005 #### [facility] [address] [place], [place], [address] Lactate [Moles/Vol] 3.4 mmol/L Invalid Interpretation Code 0.4-1.9 [facility] Comment on above: Order Comment: Comme nts: repeat after 1 L Y Result Comment: Crit ical Result(s) Called at: 08:40:28 05/31/2024 by: SUELLEN ALBERTO to Cristina Toribio. Results read back by same. Performed By: #### L 503.6005 #### [facility] [address] [place], [place], [address] Lipaseon 05-31-2024 Lipase [Catalytic activity/Vol] 26 U/L Normal 13-75 [facility] Comment on above: Order Comment: Comme nts: repeat after 1 L Y Result Comment: Mavis sands note: LIPASE revised reference range effective 22. New Lipase methodology. Expected to produce lower values than the previous assay method. NEW Reference Range: 13 - 75 U/L Performed By: #### L 503.6005 #### [facility] [address] [place], [address] Basic Metabolic Profile (BMP )on 05-03-2024 BUN/CRE 13.8 RATIO Normal 10-20 [facility] Comment on above: Order Comment: AGAIN. Order Date: 07/06/23 Order Info: 06 - BMP Order Info: 3015-3 - TSH Performed By: #### L 501.9520, L500.2500 #### [facility] [address] [place], [address] CA,Total 9.6 mg/dL Normal 8.5-10.1 [facility] Comment on above: Order Comment: AGAIN. Order Date: 07/06/23 Order Info: 06 - BMP Order Info: 3015-3 - TSH Performed By: #### L 501.9520, L500.2500 #### [facility] [address] [place], [address] Chloride [Moles/Vol] 104 mmol/L Normal 98-107 [facility] Comment on above: Order Comment: AGAIN. Order Date: 07/06/23 Order Info: 06 - BMP Order Info: 3015-3 - TSH Performed By: #### L 501.9520, L500.2500 #### [facility] [address] [place], [address] CO2 [Moles/Vol] 26.0 mmol/L Normal 21.0-32.0 [facility] Comment on above: Order Comment: AGAIN. Order Date: 07/06/23 Order Info: 0667- - BMP Order Info: 301-3 - TSH Performed By: #### L 501.9520, L500.2500 #### [facility] [address] [place], [address] Creatinine [Mass/Vol] 1.09 mg/dL Normal 0.70-1.30 [facility] Comment on above: Order Comment: AGAIN. Order Date: 07/06/23 Order Info: 06 - BMP Order Info: 3015-10 - TSH Result Comment: The validity of the calculated GFR GFRAA in patients over 70 years has not been determined. Clinical correlation is essential. Performed By: #### L 501.9520, L500.2500 #### [facility] [address] [place], [address] EST GFR - AA 91 mL/min Normal >60 [facility] Comment on above: Order Comment: AGAIN. Order Date: 07/06/23 Order Info: 06 - BMP Order Info: 3015-10 - TSH Result Comment: Afri can [place] GFR Calc Performed By: #### L 501.9520, L500.2500 #### [facility] [address] [place], [address] GAP 8 Normal 5-15 [facility] Comment on above: Order Comment: AGAIN. Order Date: 07/06/23 Order Info: 06 - BMP Order Info: 3015-10 - TSH Performed By: #### L 501.9520, L500.2500 #### [facility] [address] [place], [address] GFR/1.73 sq M.predicted among non-blacks MDRD (S/P/Bld) [Vol rate/Area] 76 mL/min/{1.73_m2} Normal >60 [facility] Comment on above: Order Comment: AGAIN. Order Date: 07/06/23 Order Info: 06- - BMP Order Info: 3015-10 - TSH Result Comment: Non- GFR Calc Performed By: #### L 501.9520, L500.2500 #### [facility] [address] [place], [address] Glucose [Mass/Vol] 216 mg/dL High 74-106 [facility] Comment on above: Order Comment: AGAIN. Order Date: 07/06/23 Order Info: 666-08 - BMP Order Info: 3 - TSH Result Comment: Gluc ose result greater than or equal to 200 mg/dL suggests DIABETES MELLITUS per A.D.A. criteria. Performed By: #### L 501.9520, L500.2500 #### [facility] [address] [place], [address] Potassium [Moles/Vol] 3.7 mmol/L Normal 3.5-5.1 [facility] Comment on above: Order Comment: AGAIN. Order Date: 07/06/23 Order Info: 666-08 - BMP Order Info: 3015-10 - TSH Performed By: #### L 501.9520, L500.2500 #### [facility] [address] [place], [address] Sodium [Moles/Vol] 138 mmol/L Normal 136-145 [facility] Comment on above: Order Comment: AGAIN. Order Date: 07/06/23 Order Info: 666-08 - BMP Order Info: 3015-10 - TSH Performed By: #### L 501.9520, L500.2500 #### [facility] [address] [place], [address] Urea nitrogen [Mass/Vol] 15 mg/dL Normal 7-18 [facility] Comment on above: Order Comment: AGAIN. Order Date: 07/06/23 Order Info: 666-08 - BMP Order Info: 3015-10 - TSH Performed By: #### L 501.9520, L500.2500 #### [facility] [address] [place], [address] Lipid Profileon 05-03-2024 Cholesterol [Mass/Vol] 255 mg/dL High 200 [facility] Comment on above: Order Comment: AGAIN. Order Date: 07/06/23 Order Info: 666-08 - [facility] Order Info: 3015-10 - TSH Result Comment: <200 mg/dL Desirable 200-240 mg/dL Borderline >240 mg/dL High Risk Performed By: #### L 500.4100, L501.9910 #### [facility] [address] [place], [address] Cholesterol in HDL [Mass/Vol] 36 mg/dL Low [facility] Comment on above: Order Comment: AGAIN. Order Date: 07/06/23 Order Info: 061 - [facility] Order Info: 3015-10 - TSH Result Comment: The drugs N-Acetylcysteine and Metamizole may falsely depress this assay. Reference Range HDL <40 mg/dL Low HDL Cholesterol HDL >or= 60 mg/dL High HDL Cholesterol Performed By: #### L 500.4100, L501.9910 #### [facility] [address] [place], [address] LDL TNP Normal 0-130 [facility] Comment on above: Order Comment: AGAIN. Order Date: 07/06/23 Order Info: 06 - [facility] Order Info: 3015-10 - TSH Performed By: #### L 500.4100, L501.9910 #### [facility] [address] [place], [address] Triglyceride [Mass/Vol] 468 mg/dL High [facility] Comment on above: Order Comment: AGAIN. Order Date: 07/06/23 Order Info: 06 - [facility] Order Info: 3015-10 - TSH Result Comment: The drugs N-Acetylcysteine and Metamizole may falsely depress this assay. TRIGLYCERIDE IS GREATER THAN 400 mg/dL. LDL RESULT IS INVALID AND WILL NOT BE REPORTED. Serum Triglycerides Reference Interval Normal <150 mg/dL Borderline high 150 - 199 mg/dL High 200 - 499 mg/dL Very High > or = 500 mg/dL Performed By: #### L 500.4100, L501.9910 #### [facility] [address] [place], [address] VLDL TNP Normal 5-40 [facility] Comment on above: Order Comment: AGAIN. Order Date: 07/06/23 Order Info: 0667-1 - BMP Order Info: 3016-3 - TSH Performed By: #### L 500.4100, L501.9910 #### [facility] [address] [place], [address] PSA,Total - Annual Screenon 05-03-2024 PSA,TOT SCREEN 0.54 ng/mL Normal 0.00-4.00 [facility] Comment on above: Order Comment: AGAIN. Order Date: 07/06/23 Order Info: 0667-1 - BMP Order Info: 3016-3 - TSH Result Comment: This test was performed using the TPSA assay method for the [employer] ( [employer] ) chemistry system. Values obtained with different assay methods cannot be used interchangably. When changing PSA assays in the course of monitoring a patient, additional sequential testing should be carried out to confirm baseline values. Performed By: #### L 500.4100, L501.9910 #### [facility] [address] [place], [address] Thyroid Stim Hormone (TSH)on 05-03-2024 TSH 1.420 uIU/mL Normal 0.358-3.740 [facility] Comment on above: Order Comment: AGAIN. Order Date: 07/06/23 Order Info: 0667-1 - BMP Order Info: 3016-3 - TSH Performed By: #### L 501.9520, L500.2500 #### [facility] [address] [place], [address] Basophil percentageOrdered B y: Navneet Oconnor on 12-22-2023 Testosterone [Mass/Vol] 263.27 ng/dL [facility] Comment on above: CENTRAL 90% REFERENC E RANGES MALE AGE <50 197.44 - 669.58 ng/dL MALE AGE > or = 50 187.72 - 684.19 ng/dL FEMALE AGE <50 8.38 - 35.01 ng/dL FEMALE AGE > or = 50 <7.00 - 35.92 ng/dL Effective as of 03/12/21 Basophil percentageOrdered B y: Dat Oconnor on 10-28-2023 Testosterone [Mass/Vol] 214.15 ng/dL [facility] Comment on above: CENTRAL 90% REFERENC E RANGES MALE AGE <50 197.44 - 669.58 ng/dL MALE AGE > or = 50 187.72 - 684.19 ng/dL FEMALE AGE <50 8.38 - 35.01 ng/dL FEMALE AGE > or = 50 <7.00 - 35.92 ng/dL Effective as of 03/12/21 Absolute lymphocyte countOrd ered By: Benito Dasilva on 07-08-2023 Lymphocytes Auto (Unsp spec) [#/Vol] 2.09 10*3/uL 0.83-4.51 [facility] Basophil percentageOrdered B y: Benito Dasilva on 07-08-2023 Basophils/100 WBC (Bld) 0.7 % 0-1 [facility] Chloride [Moles/Vol] 106 mmol/L 98-107 [facility] Eosinophils/100 WBC (Bld) 2.0 % 0-5 [facility] Glucose [Mass/Vol] 142 mg/dL 74-106 [facility] Comment on above: Fasting Glucose resu lt greater than or equal to 126 mg/dL suggests DIABETES MELLITUS per A.D.A. criteria. Neutrophils (Bld) [#/Vol] 4.3 10*3/uL 2.0-7.7 [facility] Neutrophils/100 WBC (Bld) 61.0 % 47-70 [facility] Potassium [Moles/Vol] 4.0 mmol/L 3.5-5.1 [facility] Comment on above: Slight Hemolysis, Re sult may be falsely increased. Sodium [Moles/Vol] 139 mmol/L 136-145 [facility] WBC (Bld) [#/Vol] 7.0 10*3/uL 4.4-11.0 [facility] Blood erythrocytes count (nu mber/volume)Ordered By: Benito Dasilva on 07-08-2023 RBC (Bld) [#/Vol] 5.32 10*6/uL 4.6-6.2 [facility] Blood hemoglobin measurement (mass/volume)Ordered By: Benito Dasilva on 07-08-2023 Hemoglobin (Bld) [Mass/Vol] 15.8 g/dL 13.0-16.5 [facility] Blood lymphocytes/100 leukoc ytesOrdered By: Pebbles Brown on 07-08-2023 Lymphocytes/100 WBC (Bld) 30.0 % 19-41 [facility] Blood monocytes/100 leukocyt esOrdered By: [place] Brown on 07-08-2023 Monocytes/100 WBC (Bld) 5.7 % 0-10 [facility] Blood platelet mean volumeOr dered By: [facility] Brown on 07-08-2023 Platelet mean volume (Bld) [Entitic vol] 10.0 fL 6.2-12.0 [facility] Determination of erythrocyte mean corpuscular volume (MCV)Ordered By: Benito Dasilva on 07-08-2023 MCV (RBC) [Entitic vol] 84.0 fL 80-94 [facility] Hematocrit Auto (Bld) [Volum e fraction][facility] Hematocrit (Bld) [Volume fraction] 44.7 % 40-54 [facility] Laboratory - Chemistry and C hemistry - challengeOrdered By: [facility] on 07-08-2023 CO2 [Moles/Vol] 27.0 mmol/L 21.0-32.0 [facility] Urea nitrogen/Creatinine [Mass ratio] 10.5 mg/mg 10-20 [facility] Laboratory - Hematology and Cell countsOrdered By: [facility] on 07-08-2023 Erythrocyte distribution width (RBC) [Entitic vol] 36.3 fL 35.1-43.9 [facility] Erythrocyte distribution width (RBC) [Ratio] 12.0 % 11.6-14.6 [facility] Immature granulocytes/100 WBC (Bld) 0.600 % 0.0-0.9 [facility] Comment on above: IG% - Immature Granu locytes (promyelocytes, myelocytes and metamyelocytes) > 1% indicates that a LEFT SHIFT is Present. MCH (RBC) [Entitic mass] 29.7 pg 27.0-32.0 [facility] Nucleated RBC/100 WBC (Bld) [Ratio] 0 % 0-5 [facility]) [Mass/Vol]Or dered By: Benito Dasilva on 07-08-2023 MCHC (RBC) [Mass/Vol] 35.3 g/dL 32-36 [facility] No Panel InformationOrdered By: Benito Dasilva on 07-08-2023 Estimated Creatinine Clearance Calc 85.94 ml/min [facility] Estimated GFR (MDRD) Amer 96 mL/min >60 [facility] Comment on above: GFR Calc Estimated GFR (MDRD) Non-Af Amer 79 mL/min >60 [facility] Comment on above: Non- GFR Calc Troponin I High Sensitivity 8 pg/mL 3.0-78.0 [facility] Comment on above: Please Note: New Lily t Units and Gender Specific Reference Ranges. For more information see Policy Stat Procedure [place] High Sensitivity Troponin (TNIH) and attachments. Platelets bldOrdered By: Pebbles Brown on 07-08-2023 Platelets (Bld) [#/Vol] 217 10*3/uL 150-450 [facility] Serum or plasma calcium dejan urement (mass/volume)Ordered By: Benito Dasilva on 07-08-2023 Calcium [Mass/Vol] 9.6 mg/dL 8.5-10.1 [facility] Serum or plasma creatinine m easurement (mass/volume)Ordered By: Benito Dasilva on 07-08-2023 Creatinine [Mass/Vol] 1.05 mg/dL 0.70-1.30 [facility] Comment on above: The validity of the calculated GFR & GFRAA in patients over 70 years has not been determined. Clinical correlation is essential. Serum or plasma urea nitroge n measurement (mass/volume)Ordered By: Benito Dasilva on 07-08-2023 Urea nitrogen [Mass/Vol] 11 mg/dL 7-18 [facility] Thin prep Papanicolaou smear with manual screeningOrdered By: [facility] on 07-08-2023 Thin prep Papanicolaou smear with manual screening 6 5-15 [facility] CBC W Auto Differential pane l (Bld)on 06-25-2023 Basophils (Bld) [#/Vol] 0.04 10*3/uL Normal <0.11 [facility] Comment on above: Order Comment: Speci men Type: BLOOD SPECIMEN Ordering Facility: [facility] Address: [address] [place] [address] Performed By: #### 5 7021-8 #### [facility] CLIA [id number] [address] [place] [address] [place] Basophils/100 WBC (Bld) 0.4 % Normal [facility] Comment on above: Order Comment: Speci men Type: BLOOD SPECIMEN Ordering Facility: [facility] Address: [address] [place] [address] Performed By: #### 5 7021-8 #### [facility] CLIA [id number] [address] [place] [address] [place] Differential cell count method Nom (Bld) Auto Normal [facility] Comment on above: Order Comment: Speci men Type: BLOOD SPECIMEN Ordering Facility: [facility] Address: [address] [place] [address] Performed By: #### 5 7021-8 #### [facility] CLIA [id number] [address] [place] [address] [place] Eosinophils (Bld) [#/Vol] 0.05 10*3/uL Normal <0.46 [facility] Comment on above: Order Comment: Speci men Type: BLOOD SPECIMEN Ordering Facility: [facility] Address: [address] [place] [address] Performed By: #### 5 7021-8 #### [facility] CLIA [id number] [address] [place] [address] [place] Eosinophils/100 WBC (Bld) 0.5 % Normal [facility] Comment on above: Order Comment: Speci men Type: BLOOD SPECIMEN Ordering Facility: [facility] Address: [address] [place] [address] Performed By: #### 5 7021-8 #### [facility] CLIA [id number] [address] [place] [address] [place] Erythrocyte distribution width (RBC) [Ratio] 12.0 % Normal 11.5-15.0 [facility] Comment on above: Order Comment: Speci men Type: BLOOD SPECIMEN Ordering Facility: [facility] Address: [address] [place] [address] Performed By: #### 5 7021-8 #### [facility] CLIA [id number] [address] [place] [address] [place] Hematocrit (Bld) [Volume fraction] 44.7 % Normal 39.0-51.0 [facility] Comment on above: Order Comment: Speci men Type: BLOOD SPECIMEN Ordering Facility: [facility] Address: [address] [place] [address] Performed By: #### 5 7021-8 #### [facility] CLIA [id number] [address] [place] [address] [place] Hemoglobin (Bld) [Mass/Vol] 16.6 g/dL Normal 13.0-17.0 [facility] Comment on above: Order Comment: Speci men Type: BLOOD SPECIMEN Ordering Facility: [facility] Address: [address] [place] [address] Performed By: #### 5 7021-8 #### [facility] CLIA [id number] [facility] [place] [address] [place] Immature granulocytes (Bld) [#/Vol] 0.05 10*3/uL Normal <0.10 [facility] Comment on above: Order Comment: Speci men Type: BLOOD SPECIMEN Ordering Facility: [facility] Address: [address] [place] [address] Performed By: #### 5 7021-8 #### [facility] CLIA [id number] [address] [place] [address] [place] Immature granulocytes/100 WBC (Bld) 0.5 % Normal [facility] Comment on above: Order Comment: Speci men Type: BLOOD SPECIMEN Ordering Facility: [facility] Address: [address] [place] [address] Performed By: #### 5 7021-8 #### [facility] CLIA [id number] [address] [place] [address] [place] Lymphocytes (Bld) [#/Vol] 1.44 10*3/uL Normal 1.00-4.00 [facility] Comment on above: Order Comment: Speci men Type: BLOOD SPECIMEN Ordering Facility: [facility] Address: [address] [place] [address] Performed By: #### 5 7021-8 #### [facility] CLIA [id number] [address] [place] [address] [place] Lymphocytes/100 WBC (Bld) 15.6 % Normal [facility] Comment on above: Order Comment: Speci men Type: BLOOD SPECIMEN Ordering Facility: [facility] Address: [address] [place] [address] Performed By: #### 5 7021-8 #### [facility] CLIA [id number] [address] [place] [address] [place] MCH (RBC) [Entitic mass] 30.4 pg Normal 26.0-34.0 [facility] Comment on above: Order Comment: Speci men Type: BLOOD SPECIMEN Ordering Facility: [facility] Address: [address] [place] [address] Performed By: #### 5 7021-8 #### [facility] CLIA [id number] [address] [place] [address] [place] MCHC (RBC) [Mass/Vol] 37.1 g/dL High 30.5-36.0 [facility] Comment on above: Order Comment: Speci men Type: BLOOD SPECIMEN Ordering Facility: [facility] Address: [address] [place] [address] Performed By: #### 5 7021-8 #### [facility] CLIA [id number] [address] [place] [address] [place] MCV (RBC) [Entitic vol] 81.9 fL Normal 80.0-100.0 [facility] Comment on above: Order Comment: Speci men Type: BLOOD SPECIMEN Ordering Facility: [facility] Address: [address] [place] [address] Performed By: #### 5 7021-8 #### [facility] CLIA [id number] [address] [place] [address] [place] Monocytes (Bld) [#/Vol] 0.45 10*3/uL Normal <0.87 [facility] Comment on above: Order Comment: Speci men Type: BLOOD SPECIMEN Ordering Facility: [facility] Address: [address] [place] [address] Performed By: #### 5 7021-8 #### [facility] CLIA [id number] [address] [place] [address] [place] Monocytes/100 WBC (Bld) 4.9 % Normal [facility] Comment on above: Order Comment: Speci men Type: BLOOD SPECIMEN Ordering Facility: [facility] Address: [address] [place] [address] Performed By: #### 5 7021-8 #### [facility] CLIA [id number] [address] [place] [address] [place] Neutrophils (Bld) [#/Vol] 7.20 10*3/uL Normal 1.45-7.50 [facility] Comment on above: Order Comment: Speci men Type: BLOOD SPECIMEN Ordering Facility: [facility] Address: [address] [place] [address] Performed By: #### 5 7021-8 #### [facility] CLIA [id number] [address] [place] [address] [place] Neutrophils/100 WBC (Bld) 78.1 % Normal [facility] Comment on above: Order Comment: Speci men Type: BLOOD SPECIMEN Ordering Facility: [facility] Address: [address] [place] [address] Performed By: #### 5 7021-8 #### [facility] CLIA [id number] [address] [place] [address] [place] Nucleated RBC (Bld) [#/Vol] 10*3/uL Normal <0.01 [facility] Comment on above: Order Comment: Speci men Type: BLOOD SPECIMEN Ordering Facility: [facility] Address: [address] [place] [address] Performed By: #### 5 7021-8 #### [facility] CLIA [id number] [address] [place] [address] [place] Nucleated RBC/100 WBC (Bld) [Ratio] 0.0 /100 WBC Normal [facility] Comment on above: Order Comment: Speci men Type: BLOOD SPECIMEN Ordering Facility: [facility] Address: [address] [place] [address] Performed By: #### 5 7021-8 #### [facility] CLIA [id number] [address] [place] [address] [place] Platelet mean volume (Bld) [Entitic vol] 10.0 fL Normal 9.0-12.7 [facility] Comment on above: Order Comment: Speci men Type: BLOOD SPECIMEN Ordering Facility: [facility] Address: [address] [place] [address] Performed By: #### 5 7021-8 #### [facility] CLIA [id number] [address] [place] [address] [place] Platelets (Bld) [#/Vol] 233 10*3/uL Normal 150-400 [facility] Comment on above: Order Comment: Speci men Type: BLOOD SPECIMEN Ordering Facility: [facility] Address: [address] [place] [address] Performed By: #### 5 7021-8 #### [facility] CLIA [id number] [address] [place] [address] [place] RBC (Bld) [#/Vol] 5.46 10*6/uL Normal 4.20-6.00 [facility] Comment on above: Order Comment: Speci men Type: BLOOD SPECIMEN Ordering Facility: [facility] Address: [address] [place] [address] Performed By: #### 5 7021-8 #### [facility] CLIA [id number] [address] [place] [address] [place] WBC (Bld) [#/Vol] 9.23 10*3/uL Normal 3.70-11.00 [facility] Comment on above: Order Comment: Speci men Type: BLOOD SPECIMEN Ordering Facility: [facility] Address: [address] [place] [address] Performed By: #### 5 7021-8 #### [facility] CLIA [id number] [address] [place] [address] [place] [address] BRAIN WO IVCONon 06-25-[address] BRAIN WO IVCON * * *Final Report* * * DATE OF EXAM: Jun 24 2023 11:34PM [facility] 0504 - CT BRAIN WO IVCON / PROCEDURE REASON: Syncope, simple, abnormal neuro exam * * * * Physician Interpretation * * * * EXAMINATION: CT BRAIN WO IVCON CLINICAL HISTORY: Syncope, simple, abnormal neuro exam TECHNIQUE: CT data of the head was obtained without contrast. COMPARISON: None. RESULT: Acute change/hemorrhage: No evidence of large territory acute infarction or acute intracranial hemorrhage. Parenchyma: No definite areas of abnormal attenuation within the brain parenchyma. Ventricles/Extra-ax ial spaces: The ventricles are within normal limits of size and configuration for age. No evidence of extra-axial mass lesion or fluid collection. Mass effect: No significant mass effect. Other: The calvarium is intact. Minimal RIGHT maxillary sinus mucosal thickening. Mastoid air cells are clear. No acute abnormality of the visualized orbits. IMPRESSION: No evidence of an acute intracranial process. Customs Inspector: NICOLE Transcribe Date/Time: Jun 24 2023 11:41P Dictated by : LIZ ALBERT MD This examination was interpreted and the report reviewed and electronically signed by: LIZ ALBERT MD on Jun 24 2023 11:43PM EST [id number] Normal [facility] Comprehensive metabolic 2000 panelon 06-25-2023 Albumin [Mass/Vol] 4.6 g/dL Normal 3.9-4.9 [facility] Comment on above: Order Comment: Speci men Type: BLOOD SPECIMEN Ordering Facility: [facility] Address: [address] [place] [address] Performed By: #### 2 4323-8, [id number] #### [facility] CLIA [id number] [address] [place] [address] [place] ALP [Catalytic activity/Vol] 73 U/L Normal 38-113 [facility] Comment on above: Order Comment: Speci men Type: BLOOD SPECIMEN Ordering Facility: [facility] Address: [address] [place] [address] Performed By: #### 2 4323-8, [id number] #### [facility] CLIA [id number] [address] [place] [address] [place] ALT [Catalytic activity/Vol] 38 U/L Normal 10-54 [facility] Comment on above: Order Comment: Speci men Type: BLOOD SPECIMEN Ordering Facility: [facility] Address: [address] [place] [address] Performed By: #### 2 4323-8, [id number] #### [facility] CLIA [id number] [address] [place] [address] [place] Anion gap [Moles/Vol] 12 mmol/L Normal 9-18 [facility] Comment on above: Order Comment: Speci men Type: BLOOD SPECIMEN Ordering Facility: [facility] Address: [address] [place] [address] Performed By: #### 2 4323-8, [id number] #### [facility] CLIA [id number] [address] [place] [address] [place] AST [Catalytic activity/Vol] 30 U/L Normal 14-40 [facility] Comment on above: Order Comment: Speci men Type: BLOOD SPECIMEN Ordering Facility: [facility] Address: [address] [place] [address] Performed By: #### 2 4323-8, [id number] #### [facility] CLIA [id number] [address] [place] [address] [place] Bilirubin [Mass/Vol] 0.4 mg/dL Normal 0.2-1.3 [place] Comment on above: Order Comment: Speci men Type: BLOOD SPECIMEN Ordering Facility: [facility] Address: [address] [place] [address] Performed By: #### 2 4323-8, [id number] #### [facility] CLIA [id number] [address] [place] [address] [place] Calcium [Mass/Vol] 9.8 mg/dL Normal 8.5-10.2 [facility] Comment on above: Order Comment: Speci men Type: BLOOD SPECIMEN Ordering Facility: [facility] Address: [address] [place] [address] Performed By: #### 2 4323-8, [id number] #### [facility] CLIA [id number] [address] [place] [address] [place] Chloride [Moles/Vol] 106 mmol/L High 97-105 [place] Comment on above: Order Comment: Speci men Type: BLOOD SPECIMEN Ordering Facility: [facility] Address: [address] [place] [address] Performed By: #### 2 4323-8, [id number] #### [facility] CLIA [id number] [address] [place] [address] [place] CO2 [Moles/Vol] 23 mmol/L Normal 22-30 [facility] Comment on above: Order Comment: Speci men Type: BLOOD SPECIMEN Ordering Facility: [facility] Address: [address] [place] [address] Performed By: #### 2 4323-8, [id number] #### [facility] CLIA [id number] [address] [place] [address] [place] Creatinine [Mass/Vol] 0.86 mg/dL Normal 0.73-1.22 [facility] Comment on above: Order Comment: Speci men Type: BLOOD SPECIMEN Ordering Facility: [facility] Address: [address] [place] [address] Performed By: #### 2 4323-8, [id number] #### [facility] CLIA [id number] [address] [place] [address] [place] Creatinine and Glomerular filtration rate.predicted panel (S/P/Bld) 105 mL/min/1.73m??? Normal >=60 [facility] Comment on above: Order Comment: Rose men Type: BLOOD SPECIMEN Ordering Facility: [facility] Address: [address] [place] [address] Result Comment: Elise mated Glomerular Filtration Rate (eGFR) is calculated using the 2020 CKD-EPI creatinine equation. This equation utilizes serum creatinine, sex, and age as parameters. The creatinine assay has traceable calibration to isotope dilution-mass spectrometry. Refer to KDIGO guidelines for clinical interpretation. In patients with unstable renal function, e.g. those with acute kidney injury, the eGFR may not accurately reflect actual GFR. Performed By: #### 2 4323-8, [id number] #### [facility] CLIA [id number] [address] [place] [address] [place] Glucose [Mass/Vol] 153 mg/dL High 74-99 [facility] Comment on above: Order Comment: Speci men Type: BLOOD SPECIMEN Ordering Facility: [facility] Address: [address] [place] [address] Result Comment: The [place] [employer] (ADA) provides guidance for cutoff values for fasting glucose and random glucose. The ADA defines fasting as no caloric intake for at least 8 hours. Fasting plasma glucose results between 100 to 125 mg/dL indicate increased risk for diabetes (prediabetes). Fasting plasma glucose results greater than or equal to 126 mg/dL meet the criteria for diagnosis of diabetes. In the absence of unequivocal hyperglycemia, results should be confirmed by repeat testing. In a patient with classic symptoms of hyperglycemia or hyperglycemic crisis, random plasma glucose results greater than or equal to 200 mg/dL meet the criteria for diagnosis of diabetes. Reference: Standards of Medical Care in Diabetes 2016, [place] [employer]. Diabetes Care. 2016.39(Suppl 1). Performed By: #### 2 4323-8, [id number] #### [facility] CLIA [id number] [address] [place] [address] [place] Potassium [Moles/Vol] 3.8 mmol/L Normal 3.7-5.1 [facility] Comment on above: Order Comment: Speci men Type: BLOOD SPECIMEN Ordering Facility: [facility] Address: [address] [place] [address] Performed By: #### 2 4323-8, [id number] #### [facility] CLIA [id number] [address] [place] [id number] [place] Protein [Mass/Vol] 7.5 g/dL Normal 6.3-8.0 [facility] Comment on above: Order Comment: Rose whyte Type: BLOOD SPECIMEN Ordering Facility: [facility] Address: [address] [place] [address] Performed By: #### 2 4323-8, [id number] #### [facility] CLIA [id number] [address] [address] [place] Sodium [Moles/Vol] 141 mmol/L Normal 136-144 [facility] Comment on above: Order Comment: Patricki men Type: BLOOD SPECIMEN Ordering Facility: [facility] Address: [address] [place] [address] Performed By: #### 2 4323-8, [id number] #### [facility] CLIA [id number] [address] [place] [address] [place] Urea nitrogen [Mass/Vol] 11 mg/dL Normal 9-24 [facility] Comment on above: Order Comment: Speci men Type: BLOOD SPECIMEN Ordering Facility: [facility] Address: [address] [place] [address] Performed By: #### 2 4323-8, [id number] #### [facility] CLIA [id number] [address] [place] ECG COMPLETEon 06-25-2023 ECG COMPLETE Ventricular Rate : 81 BPM Atrial Rate : 81 BPM P-R Interval : 150 ms QRS Duration : 94 ms Q-T Interval : 372 ms QTC Calculation(Bazett) : 432 ms Calculated P Cloudcroft : 44 degrees Calculated R Cloudcroft : 17 degrees Calculated T Cloudcroft : 20 degrees NORMAL SINUS RHYTHM NORMAL ECG 2352 Confirmed by MD REID JAMES ([id number]), communications editor KYLE DIAZ ([id number]) on 06/25/2023 1:14:57 PM NAME : DALE YOUSIF PID : [id number] : 1970 Gender : Male Race : ORD : [id number] Procedure Date : Jun 24 2023 23:50:04 Edit Date : Jun 25 2023 13:14:59 Diagnosis: NORMAL SINUS RHYTHM NORMAL ECG 2352 Confirmed by MD REID JAMES ([id number]), communications editor KYLE DIAZ ([id number]) on 06/25/2023 1:14:57 PM Test Reason : Chest Pain Location : 2 : EDNS [id number] Overread By : MD REID JAMES Edited By : KYLE DIAZ Referred By : , Acquired by : Gricelda heard [facility] ED NOTEon 06-25-2023 ED NOTE HNO ID: [id number] Author: Priti Temple RN Service: ? Author Type: Registered Nurse Type: ED Notes Filed: 06/25/2023 2:25 AM Note Text: AVS printed and reviewed with patient. follow up instructions reviewed, patient verbalized understanding and was discharged in stable condition. Normal [facility] ED NOTE HNO ID: [id number] Author: Shan Lee RN Service: ? Author Type: Registered Nurse Type: ED Notes Filed: 06/24/2023 10:11 PM Note Text: Bed: E12-18 Expected date: Expected time: Means of arrival: Comments: Normal [facility] ED PROV NOTEon 06-25-2023 ED PROV NOTE HNO ID: [id number] Author: Destiney Winters MD Service: Emergency Medicine Author Type: Physician Type: ED Provider Notes Filed: 06/27/2023 12:29 AM Note Text: ED Provider Note Patient Name: Dale Yousif : 1970 SERVICE DATE: 06/24/23 History Patient presents with: Dizziness: Patient was at the [employer] where he experienced a near syncopal episode, the patient states that he did not fall, faint, or hit his head but the episode startled him a lot. EMS was called and upon arrival the patient was hypertensive within the 200's the patient does have a PMH of htn and is on lisinopril . 53 y/o M pmhx of DM, HTN presenting to ED for dizziness. Was at concert tonight and became dizzy/LH. States that he had some weakness and tingling in his knees. Did not pass out/LOC, did not fall or hit head. Patient states that his BP was taken and he had SBP >200s. Did take his home BP meds this morning. Patient states that his dizziness is improving. Denies any HERNANDEZ, changes in vision, chest pain, shortness of breath. Patient denies any drug or alcohol use tonight. States he had water at concert, has not eaten dinner but had late lunch. PAST MEDICAL HISTORY Diagnosis Date Diabetes mellitus Elevated blood sugar level Hernia of unspecified site of abdominal cavity without mention of obstruction or gangrene PAST SURGICAL HISTORY Procedure Laterality Date ANES DIAG ARTHROSCOPIC SHOULDER JOINT PROC NOS 1996 left No family history on file. Social History Tobacco Use Smoking status: Never Smokeless tobacco: Not on file Substance and Sexual Activity Alcohol use: Yes Comment: occasionally Drug use: No Sexual activity: Not on file ALLERGIES Allergen Reactions Environmental Aller* No Known Drug Aller* Review of Systems Constitutional: Positive for activity change. Neurological: Positive for light-headedness. Physical Exam Vitals [06/24/23 2228] BP Pulse Temp Temp src Resp SpO2 Weight Height (!) 210/114 80 36.7 ?C (98 ?F) Oral 14 99 % 99.8 kg (220 lb) -- Physical Exam Vitals and nursing note reviewed. Constitutional: General: He is not in acute distress. Appearance: Normal appearance. He is not diaphoretic. HENT: Head: Normocephalic and atraumatic. Mouth/Throat: Mouth: Mucous membranes are moist. Pharynx: Oropharynx is clear. Eyes: Extraocular Movements: Extraocular movements intact. Pupils: Pupils are equal, round, and reactive to light. Cardiovascular: Rate and Rhythm: Normal rate and regular rhythm. Pulmonary: Effort: Pulmonary effort is normal. Breath sounds: Normal breath sounds. Abdominal: General: There is no distension. Palpations: Abdomen is soft. Tenderness: There is no abdominal tenderness. Musculoskeletal: General: Normal range of motion. Cervical back: Normal range of motion and neck supple. Skin: General: Skin is warm and dry. Capillary Refill: Capillary refill takes less than 2 seconds. Neurological: General: No focal deficit present. Mental Status: He is alert and oriented to person, place, and time. Cranial Nerves: No cranial nerve deficit. Sensory: No sensory deficit. Motor: No weakness. Psychiatric: Mood and Affect: Mood normal. Behavior: Behavior normal. Diagnostic Testing ED Labs Ordered and Reviewed - No data to display Procedures ED Course / Clinical Impression ED Course as of 06/25/23 0614 Juan Hoover's Documentation [facility] Jun 25, 2023 0117 HIGH SENSITIVITY TROPONIN T (SECOND): TONY High Sensitivity 11 Negative Others' Documentation [facility] Jun 25, 2023 0000 EKG: Normal sinus rhythm at 81 bpm. QTc 432. No prior for comparison. No STEMI. [HJ] 0051 53-year-old male with a lightheaded episode at a [employer]. Patient was found to be markedly hypertensive. 1 month ago his blood pressure was systolic in the 130s. He has been on lisinopril for 2 years. Patient did have a late lunch. He did not eat dinner. He states it was very hot in the area. Patient is getting 500 mL IV fluid. He is not spilling protein in his urine. I discussed with he and his significant other that we could review his chart and have pharmacy weigh in on a second blood pressure medication. He prefers to wait at this time to have his primary care doctor reevaluate him. [HJ] ED Course User Index [HJ] Destiney Winters MD Clinical Impressions as of 06/25/23 0614 Dizziness Hypertension, unspecified type MDM / Disposition / Plan 53-year-old male presenting to the emergency department for lightheadedness and hypertension. Episode occurred while patient was concert tonight. Vital signs reviewed patient noted to have hypertension, otherwise hemodynamically stable. EKG reviewed and showed sinus rhythm, without evidence of ischemic changes, less concern for arrhythmia. Troponins were negative, less concern for acute coronary syndrome. Urine toxicology was negative. Pre-syncopa (more content not included)... Normal [facility] HIGH SENSITIVITY TROPONIN T (INITIAL)on 06-25-2023 Troponin T.cardiac High sensitivity method [Mass/Vol] 11 ng/L Normal <12 [facility] Comment on above: Order Comment: Rose whyte Type: BLOOD SPECIMEN Ordering Facility: [facility] Address: [address] [place] [address] Result Comment: When assessing risk for acute coronary syndromes: In patients undergoing blood draw greater than or equal to 2 hours from symptom onset, with history of very low to moderate risk and non-ischemic ECG, an initial hs-Troponin T less than 12 ng/L AND a 1 hour delta hs-Troponin T less than 3 ng/L should be considered very low risk for 30 day MACE. Performed By: #### 2 4323-8, [id number] #### [facility] CLIA [id number] [address] [place] [address] [place] HIGH SENSITIVITY TROPONIN T (SECOND)on 06-25-2023 Troponin T.cardiac High sensitivity method [Mass/Vol] 11 ng/L Normal <12 [facility] Comment on above: Order Comment: Rose whyte Type: BLOOD SPECIMEN Ordering Facility: [facility] Address: [address] [place] [address] Result Comment: When assessing risk for acute coronary syndromes: In patients undergoing blood draw greater than or equal to 2 hours from symptom onset, with history of very low to moderate risk and non-ischemic ECG, an initial hs-Troponin T less than 12 ng/L AND a 1 hour delta hs-Troponin T less than 3 ng/L should be considered very low risk for 30 day MACE. Performed By: #### L [id number] #### [facility] CLIA [id number] [address] [place] [address] [place] TOX SCREEN ROUT URon 023 Amphetamines Confirm (U) [Mass/Vol] Negative Normal Negative [facility] Comment on above: Order Comment: Speci men Type: URINE SPECIMEN Ordering Facility: [facility] Address: [address] [place] [address] Result Comment: Cuto ff threshold at 1000 ng/mL. Performed By: #### U TOX2 #### [facility] CLIA [id number] [address] [place] [address] [place] BARBITURATES, URINE Negative Normal Negative [facility] Comment on above: Order Comment: Speci men Type: URINE SPECIMEN Ordering Facility: [facility] Address: [address] [place] [address] Result Comment: Cuto ff threshold at 200 ng/mL. Performed By: #### U TOX2 #### [facility] CLIA [id number] [address] [place] [address] [place] BENZODIAZEPINES, UR Negative Normal Negative [facility] Comment on above: Order Comment: Speci men Type: URINE SPECIMEN Ordering Facility: [facility] Address: [address] [place] [address] Result Comment: Cuto ff threshold at 200 ng/mL. Performed By: #### U TOX2 #### [facility] CLIA [id number] [address] [place] [address] [place] Cannabinoids Screen Ql (U) Negative Normal Negative [facility] Comment on above: Order Comment: Speci men Type: URINE SPECIMEN Ordering Facility: [facility] Address: [address] [place] [address] Result Comment: Cuto ff threshold at 50 ng/mL. Performed By: #### U TOX2 #### [facility] CLIA [id number] [address] [place] [address] [place] Cocaine Ql (U) Negative Normal Negative [facility] Comment on above: Order Comment: Speci men Type: URINE SPECIMEN Ordering Facility: [facility] Address: [address] [place] [address] Result Comment: Cuto ff threshold at 300 ng/mL. Performed By: #### U TOX2 #### [facility] CLIA [id number] [address] [place] [address] [place] Ethanol (U) [Mass/Vol] <11 Normal <11 [facility] Comment on above: Order Comment: Speci men Type: URINE SPECIMEN Ordering Facility: [facility] Address: [address] [place] [address] Performed By: #### U TOX2 #### [facility] CLIA [id number] [facility] [place] [address] [place] Opiates Screen Ql (U) Negative Normal Negative [facility] Comment on above: Order Comment: Speci men Type: URINE SPECIMEN Ordering Facility: [facility] Address: [address] [place] [address] Result Comment: Cuto ff threshold at 300 ng/mL. Performed By: #### U TOX2 #### [facility] CLIA [id number] [address] [place] [address] [place] oxyCODONE cutoff Screen (U) [Mass/Vol] Negative Normal Negative [facility] Comment on above: Order Comment: Speci men Type: URINE SPECIMEN Ordering Facility: [facility] Address: [address] [place] [address] Result Comment: Cuto ff threshold at 100 ng/mL. Performed By: #### U TOX2 #### [facility] CLIA [id number] [address] [place] [address] [place] Phencyclidine Ql (U) Negative Normal Negative [place] Comment on above: Order Comment: Speci men Type: URINE SPECIMEN Ordering Facility: [facility] Address: [address] [place] [address] Result Comment: Cuto ff threshold at 25 ng/mL. Performed By: #### U TOX2 #### [facility] CLIA [id number] [facility] [place] [address] [place] Urinalysis complete panel (U )on 06-25-2023 Bacteria LM.HPF (Urine sed) [#/Area] Negative Normal Negative [facility] Comment on above: Order Comment: Speci men Type: URINE SPECIMEN Ordering Facility: [facility] Address: [address] [place] [address] Performed By: #### 2 4356-8 #### [facility] CLIA [id number] [address] [place] [address] [place] Bilirubin Ql (U) Negative Normal Negative [facility] Comment on above: Order Comment: Speci men Type: URINE SPECIMEN Ordering Facility: [facility] Address: [address] [place] [address] Performed By: #### 2 4356-8 #### [facility] CLIA [id number] [address] [place] [address] [place] Clarity (Unsp spec) Clear Normal Clear [facility] Comment on above: Order Comment: Speci men Type: URINE SPECIMEN Ordering Facility: [facility] Address: [address] [place] [address] Performed By: #### 2 4356-8 #### [facility] CLIA [id number] [address] [place] [address] [place] Color (U) Yellow Normal Yellow [facility] Comment on above: Order Comment: Speci men Type: URINE SPECIMEN Ordering Facility: [facility] Address: [address] [place] [address] Performed By: #### 2 4356-8 #### [facility] CLIA [id number] [address] [place] [address] [place] Epithelial cells LM.HPF (Urine sed) [#/Area] None Seen Normal [facility] Comment on above: Order Comment: Speci men Type: URINE SPECIMEN Ordering Facility: [facility] Address: [address] [place] [address] Performed By: #### 2 4356-8 #### [facility] CLIA [id number] [address] [place] [address] [place] Glucose Test strip (U) [Mass/Vol] Negative Normal Negative [facility] Comment on above: Order Comment: Speci men Type: URINE SPECIMEN Ordering Facility: [facility] Address: [address] [place] [address] Performed By: #### 2 4356-8 #### [facility] CLIA [id number] [address] [place] [address] [place] Hemoglobin Ql (U) Negative Normal Negative [facility] Comment on above: Order Comment: Speci men Type: URINE SPECIMEN Ordering Facility: [facility] Address: [address] [place] [address] Performed By: #### 2 4356-8 #### [facility] CLIA [id number] [address] [place] [address] [place] Hyaline casts (Urine sed) [#/Area] 0 /[LPF] Normal 0 /LPF [facility] Comment on above: Order Comment: Speci men Type: URINE SPECIMEN Ordering Facility: [facility] Address: [address] [place] [address] Performed By: #### 2 4356-8 #### [facility] CLIA [id number] [address] [place] [address] [place] Ketones Ql (U) Trace Abnormal Negative [facility] Comment on above: Order Comment: Speci men Type: URINE SPECIMEN Ordering Facility: [facility] Address: [address] [place] [address] Performed By: #### 2 4356-8 #### [facility] CLIA [id number] [address] [place] [address] [place] Leukocyte esterase Test strip Ql (U) Negative Normal Negative [facility] Comment on above: Order Comment: Speci men Type: URINE SPECIMEN Ordering Facility: [facility] Address: [address] [place] [address] Performed By: #### 2 4356-8 #### [facility] CLIA [id number] [address] [place] [address] [place] Nitrite Ql (U) Negative Normal Negative [facility] Comment on above: Order Comment: Speci men Type: URINE SPECIMEN Ordering Facility: [facility] Address: [address] [place] [address] Performed By: #### 2 4356-8 #### [facility] CLIA [id number] [address] [place] [address] [place] pH (U) 6.5 [pH] Normal <8.5 [facility] Comment on above: Order Comment: Speci men Type: URINE SPECIMEN Ordering Facility: [facility] Address: [address] [place] [address] Performed By: #### 2 4356-8 #### [facility] CLIA [id number] [address] [place] [address] [place] Protein (U) [Mass/Vol] Negative Normal Negative [facility] Comment on above: Order Comment: Speci men Type: URINE SPECIMEN Ordering Facility: [facility] Address: [address] [place] [address] Performed By: #### 2 4356-8 #### [facility] CLIA [id number] [address] [place] [address] [place] RBC LM.HPF (Urine sed) [#/Area] 0-2 /HPF Normal 0-2 /HPF [facility] Comment on above: Order Comment: Speci men Type: URINE SPECIMEN Ordering Facility: [facility] Address: [address] [place], [place] [address] Performed By: #### 2 4356-8 #### [facility] CLIA [id number] [address] [place] [address] [place] Specific gravity (U) [Rel density] 1.009 Normal 1.005-1.030 [facility] Comment on above: Order Comment: Speci men Type: URINE SPECIMEN Ordering Facility: [facility] Address: [address] [place] [address] Performed By: #### 2 4356-8 #### [facility] CLIA [id number] [address] [place] [address] [place] Urobilinogen Ql (U) 0.2 EU/dL Normal 0.2-1.0 EU/dL [facility] Comment on above: Order Comment: Speci men Type: URINE SPECIMEN Ordering Facility: [facility] Address: [address] [place] [address] Performed By: #### 2 4356-8 #### [facility] CLIA [id number] [address] [place] [address] [place] WBC LM.HPF (Urine sed) [#/Area] 0-5 /HPF Normal 0-5 /HPF [facility] Comment on above: Order Comment: Speci men Type: URINE SPECIMEN Ordering Facility: [facility] Address: [address] [place] [address] Performed By: #### 2 4356-8 #### [facility] CLIA [id number] [address] [place] [address] [place] Basophil percentageOrdered B y: Dat Oconnor on 06-01-2023 Bilirubin [Mass/Vol] 0.50 mg/dL 0.20-1.00 [facility] Comment on above: For patients on eltr ombopag therapy, use of [place] TBIL is not recommended. Chloride [Moles/Vol] 108 mmol/L 98-107 [facility] Cholesterol [Mass/Vol] 230 mg/dL <200 [facility] Comment on above: <200 mg/dL Desirable 200-240 mg/dL Borderline >240 mg/dL High Risk Glucose [Mass/Vol] 134 mg/dL 74-106 [facility] Comment on above: Fasting Glucose resu lt greater than or equal to 126 mg/dL suggests DIABETES MELLITUS per A.D.A. criteria. Potassium [Moles/Vol] 4.2 mmol/L 3.5-5.1 [facility] Protein [Mass/Vol] 7.2 g/dL 6.4-8.2 [facility] Sodium [Moles/Vol] 141 mmol/L 136-145 [facility] Triglyceride [Mass/Vol] 584 mg/dL <199 [facility] Comment on above: The drugs N-Acetylcy steine and Metamizole may falsely depress this assay. TRIGLYCERIDE IS GREATER THAN 400 mg/dL. LDL RESULT IS INVALID AND WILL NOT BE REPORTED.Serum Triglycerides Reference Interval Normal <150 mg/dL Borderline high 150 - 199 mg/dL High 200 - 499 mg/dL Very High > or = 500 mg/dL Laboratory - Chemistry and C hemistry - challengeOrdered By: Dat Oconnor on 06-01-2023 ALP [Catalytic activity/Vol] 69 U/L 45-117 [facility] ALT [Catalytic activity/Vol] 43 U/L 16-61 [facility] CO2 [Moles/Vol] 25.0 mmol/L 21.0-32.0 [facility] Globulin (S) [Mass/Vol] 3.7 g/dL 2.2-4.2 [facility] Urea nitrogen/Creatinine [Mass ratio] 13.6 mg/mg 10-20 [facility] No Panel InformationOrdered By: Dat Oconnor on 06-01-2023 Estimated GFR (MDRD) Amer 98 mL/min >60 [facility] Comment on above: GFR Calc Estimated GFR (MDRD) Non-Af Amer 81 mL/min >60 [facility] Comment on above: Non- GFR Calc Prostate Specific Antigen Screen 0.63 ng/mL 0.00-4.00 [facility] Comment on above: This test was perfor med using the TPSA assay method for the[employer] ( [employer] ) chemistry system. Values obtained with differentassay methods cannot be used interchangably.When changing PSA assays in the course of monitoring apatient, additional sequential testing should be carriedout to confirm baseline values. Serum or plasma albumin dejan urement (mass/volume)Ordered By: Dat Oconnor on 06-01-2023 Albumin [Mass/Vol] 3.5 g/dL 3.2-5.0 [facility] Serum or plasma albumin/glob ulin mass ratioOrdered By: Dat Oconnor on 06-01-2023 Albumin/Globulin [Mass ratio] 0.9 {ratio} 0.9-2.4 [facility] Serum or plasma calcium dejan urement (mass/volume)Ordered By: Dat Oconnor on 06-01-2023 Calcium [Mass/Vol] 9.2 mg/dL 8.5-10.1 [facility] Serum or plasma cholesterol in HDL measurement (mass/volume)Ordered By: Dat Oconnor on 06-01-2023 Cholesterol in HDL [Mass/Vol] 34 mg/dL >40 [facility] Comment on above: The drugs N-Acetylcy steine and Metamizole may falsely depress this assay. Reference Range HDL <40 mg/dL Low HDL Cholesterol HDL >or= 60 mg/dL High HDL Cholesterol Serum or plasma cholesterol in VLDL measurement (mass/volume)Ordered By: Dat Oconnor on 06-01-2023 Cholesterol in VLDL [Mass/Vol] [facility] Comment on above: Test not performed Serum or plasma creatinine m easurement (mass/volume)Ordered By: Dat Oconnor on 06-01-2023 Creatinine [Mass/Vol] 1.03 mg/dL 0.70-1.30 [facility] Comment on above: The validity of the calculated GFR & GFRAA in patients over 70 years has not been determined. Clinical correlation is essential. Serum or plasma low density lipoprotein (LDL) cholesterol measurement (mass/volume)Ordered By: Dat Oconnor on 06-01-2023 Cholesterol in LDL [Mass/Vol] [facility] Comment on above: Test not performed Serum or plasma urea nitroge n measurement (mass/volume)Ordered By: Dat Oconnor on 06-01-2023 Urea nitrogen [Mass/Vol] 14 mg/dL 7-18 [facility] Thin prep Papanicolaou smear with manual screeningOrdered By: Dat Oconnor on 06-01-2023 Thin prep Papanicolaou smear with manual screening 9 U/L 15-37 [facility] Thin prep Papanicolaou smear with manual screening 8 5-15 [facility] Basophil percentageon 2021 Bilirubin [Mass/Vol] 0.70 mg/dL 0.20-1.00 [facility] Work Phone: Comment on above: For patients on eltr ombopag therapy, use of [place] TBIL is not recommended. Chloride [Moles/Vol] 108 mmol/L 98-107 [facility] Work Phone: Cholesterol [Mass/Vol] 223 mg/dL <200 [facility] Work Phone: Comment on above: <200 mg/dL Desirable 200-240 mg/dL Borderline >240 mg/dL High Risk Glucose [Mass/Vol] 127 mg/dL 74-106 [facility] Work Phone: Comment on above: Fasting Glucose resu lt greater than or equal to 126 mg/dL suggests DIABETES MELLITUS per A.D.A. criteria. Potassium [Moles/Vol] 4.4 mmol/L 3.5-5.1 [facility] Work Phone: Protein [Mass/Vol] 7.4 g/dL 6.4-8.2 [facility] Work Phone: Sodium [Moles/Vol] 144 mmol/L 136-145 [facility] Work Phone: Triglyceride [Mass/Vol] 325 mg/dL <199 [facility] Work Phone: Comment on above: The drugs N-Acetylcy steine and Metamizole may falsely depress this assay.Serum Triglycerides Reference Interval Normal <150 mg/dL Borderline high 150 - 199 mg/dL High 200 - 499 mg/dL Very High > or = 500 mg/dL Laboratory - Chemistry and C hemistry - challengeon 07-30-2022 ALP [Catalytic activity/Vol] 67 U/L 45-117 [facility] Work Phone: ALT [Catalytic activity/Vol] 51 U/L 16-61 [facility] Work Phone: CO2 [Moles/Vol] 28.0 mmol/L 21.0-32.0 [facility] Work Phone: Globulin (S) [Mass/Vol] 3.2 g/dL 2.2-4.2 [facility] Work Phone: Urea nitrogen/Creatinine [Mass ratio] 15.2 mg/mg 10-20 [facility] Work Phone: No Panel Informationon 07-30 Estimated GFR (MDRD) Amer 96 mL/min >60 [facility] Work Phone: Comment on above: GFR Calc Estimated GFR (MDRD) Non-Af Amer 79 mL/min >60 [facility] Work Phone: Comment on above: Non- GFR Calc Prostate Specific Antigen Screen 0.94 ng/mL 0.00-4.00 [facility] Work Phone: Comment on above: This test was perfor med using the TPSA assay method for [employer] chemistry system. Values obtained with differentassay methods cannot be used interchangably.When changing PSA assays in the course of monitoring apatient, additional sequential testing should be carriedout to confirm baseline values. Serum or plasma albumin dejan urement (mass/volume)on 07-30-2022 Albumin [Mass/Vol] 4.2 g/dL 3.2-5.0 [facility] Work Phone: Serum or plasma albumin/glob ulin mass ratioon 07-30-2022 Albumin/Globulin [Mass ratio] 1.3 {ratio} 0.9-2.4 [facility] Work Phone: Serum or plasma calcium dejan urement (mass/volume)on 07-30-2022 Calcium [Mass/Vol] 9.4 mg/dL 8.5-10.1 [facility] Work Phone: Serum or plasma cholesterol in HDL measurement (mass/volume)on 07-30-2022 Cholesterol in HDL [Mass/Vol] 34 mg/dL >40 [facility] Work Phone: Comment on above: The drugs N-Acetylcy steine and Metamizole may falsely depress this assay. Reference Range HDL <40 mg/dL Low HDL Cholesterol HDL >or= 60 mg/dL High HDL Cholesterol Serum or plasma cholesterol in VLDL measurement (mass/volume)on 07-30-2022 Cholesterol in VLDL [Mass/Vol] 65 mg/dL 5-40 [facility] Work Phone: Serum or plasma creatinine m easurement (mass/volume)on 07-30-2022 Creatinine [Mass/Vol] 1.05 mg/dL 0.70-1.30 [facility] Work Phone: Comment on above: The validity of the calculated GFR & GFRAA in patients over 70 years has not been determined. Clinical correlation is essential. Serum or plasma low density lipoprotein (LDL) cholesterol measurement (mass/volume)on 07-30-2022 Cholesterol in LDL [Mass/Vol] 124 mg/dL 0-130 [facility] Work Phone: Serum or plasma urea nitroge n measurement (mass/volume)on 07-30-2022 Urea nitrogen [Mass/Vol] 16 mg/dL 7-18 [facility] Work Phone: Thin prep Papanicolaou smear with manual screeningon 07-30-2022 Thin prep Papanicolaou smear with manual screening 34 U/L 15-37 [facility] Work Phone: Thin prep Papanicolaou smear with manual screening 8 5-15 [facility] Work Phone: COVID-19, MOLECULARon 2019 SARS-COV-2 (DIACalastoneRIN) Detected Abnormal Not Detected O [facility] Comment on above: Result Comment: This test was performed under the FDA's Emergency Use Authorization (EUA). Testing was performed using the Simplexa SARS-CoV-2 assay (Activaero) on the LiaGetGoing platform. This test has not been approved for use in asymptomatic patients and its performance in this patient population has not been evaluated. Negative results do not rule out the presence of SARS-CoV-2/COVID-19. Fact sheets for this EUA can be found at the following links: For Healthcare Providers: https://www.fda.gov/media/106453/download For Patients: https://www.fda.gov/media/267970/download Performed By: #### L [id number] #### [facility] [address] [place] [address] Jaun Yee M.D. [id number] Vital Signs Date Time Vital Sign Value Performing Clinician Facility 08-19-2023 14:20-0500 Body height 177.[address] Dat Oconnor Work Phone: [facility] 08-19-2023 14:20-0500 Body mass index (BMI) [Ratio] 31.7 kg/m2 Dr. Dat Oconnor Work Phone: [facility] 08-19-2023 14:20-0500 Body weight 100.[address] Dat Oconnor Work Phone: [facility] 08-19-2023 14:20-0500 Diastolic blood pressure 95 mm[Hg] Dr. Dat Oconnor Work Phone: [facility] 08-19-2023 14:20-0500 Heart rate 86 /min Dr. Dat Oconnor Work Phone: [facility] 08-19-2023 14:20-0500 Respiratory rate 16 /min Dr. Dat Oconnor Work Phone: [facility] 08-19-2023 14:20-0500 Systolic blood pressure 157 mm[Hg] Dr. Dat Oconnor Work Phone: [facility] 07-08-2023 21:38-0500 Diastolic blood pressure 98 mm[Hg] [facility] 07-08-2023 21:38-0500 Systolic blood pressure 157 mm[Hg] [facility] 07-08-2023 19:30-0500 Body height 177.8 cm [facility] 07-08-2023 19:30-0500 Body mass index (BMI) [Ratio] 31.6 kg/m2 [facility] 07-08-2023 19:30-0500 Body temperature 96.5 [degF] [facility] 07-08-2023 19:30-0500 Body weight 100.1 kg [facility] 07-08-2023 19:30-0500 Heart rate 75 /min [facility] 07-08-2023 19:30-0500 Respiratory rate 18 /min [facility] 07-08-2023 19:30-0500 SaO2% (BldA) [Mass fraction] 100 % [facility] 04-01-2022 08:25-0400 Diastolic blood pressure 77 mm[Hg] Dr. Dat Oconnor Work Phone: [facility] Work Phone: 04-01-2022 08:25-0400 Heart rate 69 /min Dr. Dat Oconnor Work Phone: [facility] Work Phone: 04-01-2022 08:25-0400 Respiratory rate 16 /min Dr. Dat Oconnor Work Phone: [facility] Work Phone: 04-01-2022 08:25-0400 SaO2% (BldA) [Mass fraction] 96 % Dr. Dat Oconnor Work Phone: [facility] Work Phone: 04-01-2022 08:25-0400 Systolic blood pressure 113 mm[Hg] Dr. Dat Oconnor Work Phone: [facility] Work Phone: 04-01-2022 08:04-0400 Body temperature 98.4 [degF] Dr. Dat Oconnor Work Phone: [facility] Work Phone: 04-01-2022 06:56-0400 Body height 177.[address] Dat Oconnor Work Phone: [facility] Work Phone: 04-01-2022 06:56-0400 Body mass index (BMI) [Ratio] 30.9 kg/m2 Dr. Dat Oconnor Work Phone: [facility] Work Phone: 04-01-2022 06:56-0400 Body weight [address] Dat Oconnor Work Phone: [facility] Work Phone: 02-24-2022 15:14-0400 Body mass index (BMI) [Ratio] 29.9 kg/m2 Dr. Dat Oconnor Work Phone: [facility] Work Phone: 02-24-2022 15:14-0400 Body weight 97.[address] Dat Oconnor Work Phone: [facility] Work Phone: 07-04-2020 11:11-0500 BP Diastolic 100 mm[Hg] [facility] Comment on above: Recheck [facility] 07-04-2020 11:11-0500 BP Systolic 157 mm[Hg] [facility] Comment on above: Recheck [facility] 07-04-2020 10:38-0500 BMI (Body Mass Index) 28.48 kg/m2 [facility] 07-04-2020 10:38-0500 Body Temperature 98.29 [degF] [facility] 07-04-2020 10:38-0500 Body weight 95.25 kg Stephen [facility] 07-04-2020 10:38-0500 Height 182.9 cm Stephen [facility] 07-04-2020 10:38-0500 Pulse (Heart Rate) 98 /min Stephen [facility] 07-04-2020 10:38-0500 Pulse Oximetry 98 % Stephen [facility] 07-04-2020 10:38-0500 Respiratory Rate 12 /min Stephen Cosme [facility] 10-27-2018 11:41-0400 BMI (Body Mass Index) 30.13 kg/m2 Rajwinder Portillo [facility] 10-27-2018 11:41-0400 Body Temperature 97.59 [degF] Rajwinder Portillo [facility] 10-27-2018 11:41-0400 BP Diastolic 82 mm[Hg] Rajwinder Portillo [facility] 10-27-2018 11:41-0400 BP Systolic 134 mm[Hg] Rajwinder Portillo [facility] 10-27-2018 11:41-0400 Height 177.8 cm Rajwinder Portillo [facility] 10-27-2018 11:41-0400 Pulse (Heart Rate) 78 /min Rajwinder Portillo [facility] 10-27-2018 11:41-0400 Pulse Oximetry 98 % Rajwinder Portillo [facility] 10-27-2018 11:41-0400 Respiratory Rate 18 /min Rajwinder Portillo [facility] 10-27-2018 11:41-0400 Weight 95.25 kg Rajwinder Portillo [facility] Encounters Encounter Date Encounter Type Care Provider Facility Start: 03-20-2025 ambulatory Navneet Oconnor Faci lity:[facility] Start: 2025 ambulatory Navneet Wong lity:[facility] Start: 09-28-2024 End: 09-28-2024 ambulatory Navneet Oconnor [place] Start: 08-29-2024 End: 08-29-2024 ambulatory Navneet Oconnor [facility] Start: 07-28-2024 End: 07-28-2024 ambulatory Navneet Oconnor [facility] Start: 06-23-2024 End: 06-23-2024 ambulatory Navneet Oconnor Facility:[facility] Start: 06-15-2024 End: 06-15-2024 ambulatory Navneet Oconnor Facility:[facility] Start: 05-31-2024 End: 05-31-2024 Emergency department patient visit Navneet Oconnor Facility:[facility] Start: 05-03-2024 End: 05-03-2024 ambulatory Navneet Oconnor Facility:[facility] Start: 12-22-2023 End: 12-22-[address] Navneet Oconnor Work Phone: [facility] Work Phone: Start: 12-22-2023 End: 12-22-[address] Navneet Oconnor Work Phone: [facility] Work Phone: Start: 10-28-2023 End: 10-28-[address] Dat Oconnor Work Phone: [facility] Work Phone: Start: 10-28-2023 End: 10-28-[address] Dat Oconnor Work Phone: [facility] Start: 10-13-2023 Non-patient / Non-visit Dr. Dipika Oconnor Work Phone: [facility] Start: 10-13-2023 End: 10-13-[address] Dat Oconnor Work Phone: [facility] Work Phone: Start: 10-13-2023 End: 10-13-[address] Dat Oconnor Work Phone: [facility] Work Phone: Start: 08-19-2023 End: 08-19-[address] Dat Oconnor Work Phone: [facility] Work Phone: Start: 07-08-2023 End: 07-08-2023 Emergency department patient visit [facility] Work Phone: Start: 06-25-2023 End: 06-25-2023 Emergency department patient visit NAVNEET OCONNOR Facility:[facility] Start: 06-01-2023 End: 06-01-2023 ambulatory [facility] Work Phone: Start: 06-01-2023 End: 06-01-2023 [facility] Start: 04-01-2023 End: 04-01-2023 ambulatory [facility] Work Phone: Start: 04-01-2023 End: 04-01-2023 Patient encounter procedure [facility] [place] Work Phone: Start: 07-30-2022 End: 07-30-2022 ambulatory [facility] Work Phone: Start: 07-30-2022 End: 07-30-2022 Patient encounter [facility] Start: 04-01-2022 Non-patient / Non-visit Dr. Dipika Oconnor Work Phone: [facility] Start: 04-01-2022 End: 04-01-2022 Admission to same day surgery center Dr. Dat Oconnor Work Phone: [facility] Start: 02-24-2022 Non-patient / Non-visit Dr. Dipika Oconnor Work Phone: [facility] Start: 11-30-2020 End: 11-30-2020 ambulatory DALI RIVAS GARVIN [facility] Start: 11-08-2020 End: 11-08-2020 ambulatory JYOTI MCGOWAN [facility] Start: 07-04-2020 End: 07-04-2020 Patient encounter procedure NAVNEET OCONNOR [facility] Start: 07-04-2020 End: 07-04-2020 Office outpatient visit 15 minutes Stephen Cosme Work Phone: [facility] Comment on above: Suspected Covid-19 V irus Infection (Primary Dx) Start: 10-27-2018 End: 10-27-2018 Office outpatient visit 15 minutes Rajwinder Portillo Work Phone: [facility] Comment on above: Acute conjunctivitis of both eyes, unspecified acute conjunctivitis type (Primary Dx) Procedures Date Procedure Procedure Detail Performing Clinician Start: 04-01-2023 Plain X-ray of toe Start: 04-01-[address] Alonzo Oconnor Work Phone: Plan of Treatment Date Care Activity Detail Author Start: 08-11-2029 Tetanus vaccination Tetanus: Every 1 0yrs [facility] Start: 07-08-[address] [facility] Start: 04-01-2022 Patient discharge [facility] Work Phone: Start: 04-17-2018 Influenza vaccinatio n given SEQUENTIAL INFLUENZA VACCINE (#1) [facility] Start: 1990 Hepatitis C antibody , confirmatory test Hepatitis C Screening [facility] Start: 1987 HIV screening HIV Screening [facility] Start: 1984 Adolescent depressio n screening assessment Depression Screening (PHQ9) [facility] Start: 1975 History and physical examination, annual for health maintenance Wellness Visit [facility] Start: 1972 Prostate specific an tigen measurement PSA Level [facility] Start: 1972 Tetanus vaccination TETANUS EVERY 10 YR [facility] Aldosterone [Mass/vo lume] in Serum or Plasma [facility] Catecholamines [Moles/volume] in Plasma [facility] Colonoscopy [facility] Work Phone: COVID-19, Molecular COVID-19, Mo lecular Microbiology Routine Suspected Covid-19 Virus Infection Ordered: 07/04/2020 [facility] Comment on above: Ordered: 07/04/2020 Covid-19/Influenza O rder Algorithm Covid-19/Influenza Order Algorithm Microbiology Routine Suspected Covid-19 Virus Infection Ordered: 07/04/2020 [facility] Comment on above: Ordered: 07/04/2020 Patient Education Hypertension D c ED Anxiety Reaction [facility] Work Phone: Patient referral [facility] Work Phone: Renin [Enzymatic activity/volume] in Plasma [facility] Payers Date Payer Category Payer Self-pay [id number] 2024 Unknown [id number] 2017 Unknown MAGALI KISER OUT OF STATE [facility] xxxxxxxxxxxxxxx 2017-Present [id number] 2017 Unknown ANTHEM BCBS OUT OF STATE [facility] [id number] 2017-Present [id number] 2017 Unknown [id number] 2007 Unknown [id number] 1972 Unknown [id number] 1972 Unknown [id number] 1972 Unknown [id number] Unknown [id number] Unknown [id number] Unknown [id number] Unknown [id number] Unknown [id number] Unknown [id number] Unknown [id number] Unknown [id number] Unknown [id number] Unknown [id number] Social History Date Type Detail Facility Start: 10-27-2018 End: 07-04-2020 Tobacco smoking status NHIS Never smoker [facility] Start: 10-27-2018 [facility] Start: 07-04-2020 Tobacco use and exposure Never used [facility] Start: 07-04-2020 Alcohol intake Current drinke r of alcohol (finding) [facility] Exposure to SARS-CoV -2 (event) Not sure [facility] Start: 04-01-2022 End: 08-19-2023 Tobacco smoking status TXIS Unknown if ever smoked [facility] Start: 1970 Sex Assigned At Male W [facility] Goals Date Patient Goal Desired Activity /State Mental Status Date Assessment Result Facility 07-08-2023 Cognitive function Voice/Name [facility] Work Phone: 04-01-2022 Cognitive function Level Of Consciousness Sedated [facility] Work Phone: 04-01-2022 Cognitive function Voice/Name [facility] Work Phone: Evaluation note Note Date & Type Note Facility Evaluation note Diagnosis Onset Date Encounter for screening for malignant neoplasm of colon acute [facility] Work Phone: Evaluation note Note Date & Type Note Facility Evaluation note No assessment information availa ble [facility] Work Phone: Evaluation note Note Date & Type Note Facility Evaluation note Diagnosis Onset Date Hypertension chronic [facility] Work Phone: Instructions * Patient Instructions* Rajwinder Portillo, [facility] - 10/27/2018 12:00 PM EDT [place]: Care [...] Log into your personal health record on https://[employer] pet food companyt.[employer]ench[employer] and enter Y392 in the Education box to learn more about Brigette: Care Instructions. Current as of: May 09, 2018 Content Version: 11.9 [id number] [employer]. Care instructions adapted under license by your healthcare professional. If you have questions about a medical condition or this instruction, always ask your healthcare professional. [employer] disclaims any warranty or liability for your [...] your results. If you have an active [employer] account, and your COVID test is negative (not detected), then you will be notified through your [employer] account. You should call the urgent care if you have any further questions. If your COVID test is positive (detected), you will receive a phone call to discuss your results and answer any questions you might have at that time. Please make sure [facility] has your updated phone number so we can contact you. [facility] will notify the [place] Department of Health of any positive results to comply with [...] and warm water and/or alcohol based hand test driller, scrubbing your hands for at least 20 [...] HR Department Other COVID Questions? CDC: https://www.cdc.gov/coronavirus/2019-ncov/index.html [facility] - Website: https://coronavirus.[place].gov/wps/portal/gov/covid-19/home - Hotline: 396-0-MFB-ODH (868-806-4872) Ricebook: https://blog.DRESSBOOM/series/tjzfb-89-swtlnvtdxpd-toolkit/ Learning About Coronavirus (COVID-19) Coronavirus (COVID-19): Overview [...] It can cause . This virus spreads lxaroy-oc-iqxzzd through droplets from coughing and sneezing. It [...] water aren't available, use an alcohol-based hand test driller. Avoid touching your mouth, nose, and eyes. [...] disinfect your home every day. Use household workers' compensation mediator and disinfectant wipes or sprays. Take special [...] of: February 24, 2020 Content Version: 12.6 [employer]. Care instructions adapted under license by your healthcare professional. If you have questions about a medical condition or this instruction, always ask your healthcare professional. [employer] disclaims any warranty or liability for your use of this information. Coronavirus (COVID-19): Care Instructions Overview The coronavirus disease (COVID-19) is caused by a virus. Symptoms may include a fever, a cough, andshortness of breath. It mainly spreads aydgrg-nb-rorfmo through droplets from coughing and sneezing. The [...] water aren't available, use an alcohol-based hand test driller. Don't share personal household items. These include bedding, towels, cups and glasses, and eating utensils. Wash laundry in the warmest water allowed for the fabric type, and dry it completely. It's okay to wash other people's laundry with yours. Clean and disinfect your home every day. Use household workers' compensation mediator and disinfectant wipes or sprays. Take special [...] of: February 24, 2020 Content Version: 12.6 [id number] [employer]. Care instructions adapted under license by your healthcare professional. If you have questions about a medical condition or this instruction, always ask your healthcare professional. [employer] disclaims any warranty or liability for your [...] - 07/04/2020 10:52 AM EST Patient Name: [facility] Care Location: [address] [address] Date Of : Date Of Visit: 1970 07/04/2020 MRN# Provider: [id number] Stephen Cosme CNP Chief Complaint Patient presents [...] Wants for peace of mind. Works inside [employer] for outside [employer]. + cases in [employer] does not think that he has been [...] your results. If you have an active [employer]t account, and your COVID test is negative (not detected), then you will be notified through your [employer] pet [employer]t account. You should call the urgent care if you have any further questions. If your COVID test is positive (detected), you will receive a phone call to discuss your results and answer any questions you might have at that time. Please make sure [facility] has your updated phone number so we can contact you. [facility] will notify the [facility] of any positive results to comply with [...] and warm water and/or alcohol based hand test driller, scrubbing your hands for at least 20 [...] HR Department Other COVID Questions? CDC: https://www.cdc.gov/coronavirus/2019-ncov/index.html [facility] - Website: https://coronavirus.[place].gov/wps/portal/gov/covid-19/home - Hotline: 906-7-SXI-OD (356-149-1686) Ricebook: https://blog.Bench.[employer]/series/jtgrg-15-eedrqnkeavf-toolkit/ Learning About Coronavirus (COVID-19) Coronavirus (COVID-19): Overview [...] It can cause . This virus spreads lnfutg-xq-efpndk through droplets from coughing and sneezing. It [...] water aren't available, use an alcohol-based hand test driller. Avoid touching your mouth, nose, and eyes. [...] disinfect your home every day. Use household workers' compensation mediator and disinfectant wipes or sprays. Take special [...] as of: February 24, 2020 Content Version: . [employer]. Care instructions adapted under license by your healthcare professional. If you have questions about a medical condition or this instruction, always ask your healthcare professional. [employer] disclaims any warranty or liability for your use of this information. Coronavirus (COVID-19): Care Instructions Overview The coronavirus disease (COVID-19) is caused by a virus. Symptoms may include a fever, a cough, andshortness of breath. It mainly spreads lxgzyf-bf-mqmqbf through droplets from coughing and sneezing. The [...] water aren't available, use an alcohol-based hand test driller. Don't share personal household items. These include bedding, towels, cups and glasses, and eating utensils. Wash laundry in the warmest water allowed for the fabric type, and dry it completely. It's okay to wash other people's laundry with yours. Clean and disinfect your home every day. Use household workers' compensation mediator and disinfectant wipes or sprays. Take special [...] of: February 24, 2020 Content Version: 12.6 [employer]. Care instructions adapted under license by your healthcare professional. If you have questions about a medical condition or this instruction, always ask your healthcare professional. [employer] disclaims any warranty or liability for your use of this information. 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 Advance Directives and Living Will Advance Directive Response Recorded Date/ Time Name of Medical Power of Lpn Medical Assistant Lola March 26, 2022 2:11pm Living Will Yes March 26 2 2:11pm Power of Lpn Medical Assistant Yes March 26 2 022 2:11pm Advance Directive Response Recorded Date/ Time Living Will Yes March 26 2 1:11pm Power of Lpn Medical Assistant Yes March 26 2 022 1:11pm Advance Directive Response Recorded Date/ Time Living Will Yes March 26 2 2:11pm Power of Lpn Medical Assistant Yes March 26 2 022 2:11pm Advance Directive Response Recorded Date/ Time Living Will No July 08 023 8:19pm Power of Lpn Medical Assistant No July 08, 2023 8:19pm Advance Directive Response Recorded Date/ Time Living Will No July 08, 2 023 9:19pm Power of Lpn Medical Assistant No July 08, 2023 9:19pm Summary Purpose Family History No Family History Records FoundNo Family History Records FoundNo Family History Records FoundNo Family History Records Found Chief Complaint and Reason for Visit Chief Complaint Amb Documentation Reason for Visit Encounter for screen ing for malignant neoplasm of colon Chief Complaint hypertension Chief Complaint hypertension HTN / HTN URGENCY (RANNEY) Essential (primary) hypertension Reason for Visit Hypertension Chief Complaint Essential (primary) hypertension EORDER Additional Source Comments Reason for Visit (unrecogniz ed section and content) Reason Comments Conjunctivitis Bilateral eyes red, drainage and itching since waking this mornings. Vision without glasses: Left eye 20/100 and Right eye 20/40. (normally wears glasses for distance) Reason Comments Covid-19 Screening no symptoms (unrecognized sect ion and content) No Status Records FoundNo Status Records FoundNo Status Records FoundNo Status Records Found INFORMATION SOURCE (unrecogn ized section and content) DATE [facility]ATED [facility] DATE CREATED AUTHOR AUTHOR'S ORGANIZ ATION 12/04/2020 [facility] DATE CREATED AUTHOR AUTHOR'S ORGANIZ ATION 06/28/2023 [facility] DATE CREATED AUTHOR AUTHOR'S ORGANIZ ATION 03/23/2025 [facility] Goals (unrecognized section and content) Goals may be documented in a n alternate sectionGoals may be documented in an alternate sectionGoals may be documented in an alternate sectionGoals may be documented in an alternate sectionGoals may be documented in an alternate sectionGoals may be documented in an alternate sectionGoals may be documented in an alternate section Care Teams (unrecognized sec tion and content) Team Status: Active Member Role Status Dates Dr. Dat Oconnor MD Family Provider Active Dr. Dat Oconnor MD Primary Care Provider Activ e Team Status: Inactive Member Role Status Dates Dr. Dat Oconnor MD Primary Care Provider Activ e Richard Eubanks MD Attending Provider, Referring Provide r Active Team Status: Inactive Member Role Status Dates Dr. Dat Oconnor MD Primary Care Provider, Atte miing Provider Active Team Status: Inactive Member Role Status Dates Dr. Dat Oconnor MD Primary Care Provider Activ e Dr. Benito Dasilva DO Emergency Provider Active Team Status: Inactive Member Role Status Dates Dr. Dat Oconnor MD Primary Care Provider, Refe rring Provider Active Dr. Kendall Leon MD Attending Provider Active Team Status: Active Member Role Status Dates Dr. Dat Oconnor MD Primary Care Provider Activ e Dr. Kendall Leon MD Attending Provider Active Team Status: Inactive Member Role Status Dates Dr. Dat Oconnor MD Primary Care Provider Activ e Dr. Benito Dasilva DO Attending Provider, Emergency Pro vider Active Team Status: Inactive Member Role Status Dates Dr. Dat Oconnor MD Primary Care Provider Activ e Dr. Kendall Leon MD Attending Provider, Referring Pro vider Active Team Status: Active Member Role Status Dates Dr. Navneet Oconnor MD Family Provider Active Dr. Navneet Oconnor MD Primary Care Provider Acti ve Team Status: Active Member Role Status Dates Dr. Navneet Oconnor MD Primary Care Provider Acti ve Dr. Kendall Leon MD Attending Provider Active Team Status: Inactive Member Role Status Dates Dr. Navneet Oconnor MD Primary Care Provider Acti ve Dr. Kendall Leon MD Attending Provider, Referring Pro vider Active Team Status: Inactive Member Role Status Dates Dr. Navneet Oconnor MD Primary Care Provider, Att ending Provider Active Team Status: Inactive Member Role Status Dates Dr. Navneet Oconnor MD Primary Care Provider, Attending Provider, Referring Provider Active FOR RECORDS PERTAINING TO PATIENTS WHO ARE [...] BE BASED ON THE PRIMARY CLINICAL RECORDS. [employer] provides no warranty or guarantee of the accuracy or completeness of information in this document.
--- OUTSIDE RECORDS SUMMARY | 2025-03-24 07:06 | XMS RPT_ITS | CCD ---
Author Organization [facility] Care Team Providers Care Classifications Officer Cc/Cm Name Role Phone Navneet Oconnor Primary Care Provider NAVNEET OCONNOR Primary Care Unavail able STEPHEN COSME Attending Unavailable DALI GARVIN Attending Unavail able VU RICHMOND Admitting Unavailab VU [place] Referring Unavailab NAVNEET Urbina Primary Care Unavail able JYOTI MCGOWAN Attending Unavailable NAVNEET OCONNOR Primary Care Unavail able Dr. Dat Oconnor Primary Care Provider [phone] Luz Ashley Attending Provider Unavailable Dr. Dat Oconnor Referring Provider Dr. Cayden Yañez Attending Provider [phone] Dr. Cayden Yañez Other Provider [phone] NAVNEET OCONNOR Primary Care Unavailabl e DESTINEY WINTERS Attending Unavailable Dr. Dat Oconnor Primary Care Provider [phone] Dr. Dat Oconnor Referring Provider Dr. Kendall Leon Attending Provider Dr. Dat Oconnor Primary Care Provider Dr. Dat Oconnor Referring Provider Dr. Kendall Leon Attending Provider [phone] Navneet Oconnor Primary Care Provider Dr. Kendall Leon Attending Provider [phone] [...] Referring Unavailable Ranney, Christopher Attending Unavailable [facility], [facility] Unavailable Ranney, Christopher Attending Unavailable Ranney, Christopher Primary Care Unavailable Ranney, Christopher Referring Unavailable Allergies Allergy Classification Reported Allergen(s) Allergy Type Date of Onset Reaction(s) Facility Corticosteroids (1 source) predniSONE; Translations: [PREDNISONE] Drug Allergy 9 [facility] Repository (11 sources) predniSONE; Translations: [PREDNISONE] Drug Allergy 9 Other (See Comments) [facility] (1 source) OTHER; Translations: [OTHER] Propensity to adverse reactions (disorder) 7 [facility] Repository (1 source) Amoxicillin Drug Allergy 5 [facility] Repository (1 source) Clavulanate Drug Allergy 5 [facility] Repository (1 source) predniSONE Drug Allergy 5 [facility] Repository Medications Current Medications Medication Drug Class(es) [...] (Bld) [Mass fraction] 11.3 % High <=5.6 [facility] Comment on above: Order Comment: Comme nts: repeat after 1 L Y Result Comment: Norm al < 5.7 % Prediabetic 5.7 - 6.4 % Diabetic >or= 6.5 % Please note range changes. Performed By: #### L 503.6002 #### [facility] [address] [place], [address] Comprehensive Metabolic Prof ilon 2025 Albumin [Mass/Vol] 4.2 g/dL Normal 3.5-5.0 [facility] Comment on above: Order Comment: Order Date: 02/13/25 Order Info: 0786-1 - CMP Order Info: [id number] - LIPID Performed By: #### L 500.4100, L500.4050 #### [facility] [address] [place], [address] Albumin/Globulin [Mass ratio] 1.4 {ratio} Normal 0.9-2.4 [facility] Comment on above: Order Comment: Order Date: 02/13/25 Order Info: 0786-1 - CMP Order Info: [id number] - LIPID Performed By: #### L 500.4100, L500.4050 #### [facility] [address] [place], [address] ALK PHOS 80 U/L Normal 40-129 [facility] Comment on above: Order Comment: Order Date: 02/13/25 Order Info: 0786-1 - CMP Order Info: [id number] - LIPID Performed By: #### L 500.4100, L500.4050 #### [facility] [address] [place], [address] ALT [Catalytic activity/Vol] 36 U/L Normal <=46 [facility] Comment on above: Order Comment: Order Date: 02/13/25 Order Info: 0786-1 - CMP Order Info: [id number] - LIPID Performed By: #### L 500.4100, L500.4050 #### [facility] [address] [place], [address] AST [Catalytic activity/Vol] 30 U/L Normal <=37 [facility] Comment on above: Order Comment: Order Date: 02/13/25 Order Info: 0786-1 - CMP Order Info: [id number] - LIPID Performed By: #### L 500.4100, L500.4050 #### [facility] [address] [place], [address] Bilirubin [Mass/Vol] 0.46 mg/dL Normal 0.00-1.30 [facility] Comment on above: Order Comment: Order Date: 02/13/25 Order Info: 0786-1 - CMP Order Info: [id number] - LIPID Performed By: #### L 500.4100, L500.4050 #### [facility] [address] [place], [address] BUN/CRE 13.1 RATIO Normal 10-20 [facility] Comment on above: Order Comment: Order Date: 02/13/25 Order Info: 07-1 - CMP Order Info: [id number] - LIPID Performed By: #### L 500.4100, L500.4050 #### [facility] [address] [place], [address] Calcium [Mass/Vol] 9.8 mg/dL Normal 7.6-11.0 [facility] Comment on above: Order Comment: Order Date: 02/13/25 Order Info: 0786- - CMP Order Info: [id number] - LIPID Performed By: #### L 500.4100, L500.4050 #### [facility] [address] [place], [address] Chloride [Moles/Vol] 98 mmol/L Normal 98-108 [facility] Comment on above: Order Comment: Order Date: 02/13/25 Order Info: 0786-1 - CMP Order Info: [id number] - LIPID Performed By: #### L 500.4100, L500.4050 #### [facility] [address] [place], [address] CO2 [Moles/Vol] 23.6 mmol/L Normal 21.0-32.0 [facility] Comment on above: Order Comment: Order Date: 02/13/25 Order Info: 0786-1 - CMP Order Info: [id number] - LIPID Performed By: #### L 500.4100, L500.4050 #### [facility] [address] [place], [address] Creatinine [Mass/Vol] 1.06 mg/dL Normal 0.70-1.20 [facility] Comment on above: Order Comment: Order Date: 02/13/25 Order Info: 0786-1 - CMP Order Info: [id number] - LIPID Performed By: #### L 500.4100, L500.4050 #### [facility] [address] [place], [address] GAP 14 Normal 5-15 [facility] Comment on above: Order Comment: Order Date: 02/13/25 Order Info: 07 - CMP Order Info: [id number] - LIPID Performed By: #### L 500.4100, L500.4050 #### [facility] [address] [place], [address] GFR/1.73 sq M.predicted among non-blacks MDRD (S/P/Bld) [Vol rate/Area] 84 mL/min/{1.73_m2} Normal >60 [facility] Comment on above: Order Comment: Order Date: 02/13/25 Order Info: 07 - CMP Order Info: [id number] - LIPID Result Comment: mL/m in/1.73m2 CKD-EPI Creatinine Equation (2020) Performed By: #### L 500.4100, L500.4050 #### [facility] [address] [place], [address] Globulin (S) [Mass/Vol] 2.9 g/dL Normal 2.2-4.2 [facility] Comment on above: Order Comment: Order Date: 02/13/25 Order Info: 0786- - CMP Order Info: [id number] - LIPID Performed By: #### L 500.4100, L500.4050 #### [facility] [address] [place], [address] Glucose [Mass/Vol] 284 mg/dL High 70-99 [facility] Comment on above: Order Comment: Order Date: 02/13/25 Order Info: 0786-1 - CMP Order Info: [id number] - LIPID Performed By: #### L 500.4100, L500.4050 #### [facility] [address] [place], [address] Potassium [Moles/Vol] 3.7 mmol/L Normal 3.3-5.1 [facility] Comment on above: Order Comment: Order Date: 02/13/25 Order Info: 0786-1 - CMP Order Info: [id number] - LIPID Performed By: #### L 500.4100, L500.4050 #### [facility] [address] [place], [address] Sodium [Moles/Vol] 136 mmol/L Normal 133-145 [facility] Comment on above: Order Comment: Order Date: 02/13/25 Order Info: 0786-1 - CMP Order Info: [id number] - LIPID Performed By: #### L 500.4100, L500.4050 #### [facility] [address] [place], [address] T PROT 7.1 g/dL Normal 5.9-8.4 [facility] Comment on above: Order Comment: Order Date: 02/13/25 Order Info: 0786-1 - CMP Order Info: [id number] - LIPID Performed By: #### L 500.4100, L500.4050 #### [facility] [address] [place], [address] Urea nitrogen [Mass/Vol] 14 mg/dL Normal 4-19 [facility] Comment on above: Order Comment: Order Date: 02/13/25 Order Info: 0786-1 - CMP Order Info: [id number] - LIPID Performed By: #### L 500.4100, L500.4050 #### [facility] [address] [place], [address] Lipid Profileon 2025 CHOL:HDL 7.87 Normal [facility] Comment on above: Order Comment: Order Date: 02/13/25 Order Info: 0786-1 - CMP Order Info: [id number] - LIPID Performed By: #### L 500.4100, L500.4050 #### [facility] [address] [place], [address] Cholesterol [Mass/Vol] 270 mg/dL High <=200 [facility] Comment on above: Order Comment: Order Date: 02/13/25 Order Info: 07 - CMP Order Info: [id number] - LIPID Result Comment: Chol esterol level, Desirable <200 mg/dL Borderline high cholesterol 200-239 mg/dL High cholesterol >=240 mg/dL Recommendations of the NCEP Adult Treatment Panel for the following risk-cutoff thresholds for the [place] population. Performed By: #### L 500.4100, L500.4050 #### [facility] [address] [place], [address] Cholesterol in HDL [Mass/Vol] 34 mg/dL Low [facility] Comment on above: Order Comment: Order Date: 02/13/25 Order Info: 0786 - CMP Order Info: [id number] - LIPID Result Comment: Isha onal Cholesterol Education Program (NCEP) guidelines: <40 mg/dL: Low HDL-cholesterol (major risk factor for CHD) >= 60 mg/dL: High HDL-cholesterol (negative risk factor for CHD) HDL-cholesterol is affected by a number of factors, e.g. smoking, exercise, hormones, sex and age. Performed By: #### L 500.4100, L500.4050 #### [facility] [address] [place], [address] Cholesterol in LDL [Mass/Vol] 138 mg/dL Normal [facility] Comment on above: Order Comment: Order Date: 02/13/25 Order Info: 0786- - CMP Order Info: [id number] - LIPID Result Comment: Bord xzkevj=577-016 mg/dL Higher Wsja=257 mg/dL or greater Friedwald Equation for LDL-C Performed By: #### L 500.4100, L500.4050 #### [facility] [address] [place], [place], [address] Cholesterol in VLDL [Mass/Vol] 98 mg/dL High 5-40 [facility] Comment on above: Order Comment: Order Date: 02/13/25 Order Info: 0786-1 - CMP Order Info: [id number] - LIPID Performed By: #### L 500.4100, L500.4050 #### [facility] [address] [place], [address] Triglyceride [Mass/Vol] 489 mg/dL High [facility] Comment on above: Order Comment: Order Date: 02/13/25 Order Info: 0786-1 - CMP Order Info: [id number] - LIPID Result Comment: The drugs N-Acetylcysteine and Metamizole may falsely depress this assay. Normal range: <150 mg/dL Borderline High: 150-199 mg/dL High: 200-499 mg/dL Very High: >500 mg/dL Performed By: #### L 500.4100, L500.4058 #### [facility] [address] [place], [place], [address] Urgent Care Visit Reporton 0 09-28-2024 Urgent Care Visit Report [facility] [address], [address] [place], [place] [address] OFFICE VISIT Date of Service: 09/28/24 MR#: [id number] Acct: [id number] Name: DALE YOUSIF Rep #: [id number] : 1970 Provider: ISAAC Eckert Age/Sex: 54/M Location: [facility] Status: Signed Intake Vital Signs 08/29/24 06:32 [...] pink eye Chief Complaint: bilat eye red/itchy/crusting Core Driller Helper Required: No Is patient in pain?: No [...] fever, chills, sweats, lightheadedness/diz ziness, nausea/vomiting. No stha-gbz-xdgcoyd ophthalmic drops tried to assist, as well [...] year?: No (more content not included)... Normal [facility]gent [facility] Visit Reporton 0 08-29-2024 Urgent Care Visit Report [facility] [address], [address] [place] [address] OFFICE VISIT Date of Service: 08/29/24 MR#: [id number] Acct: [id number] Name: DALE YOUSIF Rep #: [id number] : 1970 Provider: ISAAC Eckert Age/Sex: 54/M Location: [facility] Status: Signed Intake Vital Signs 07/28/24 16:49 [...] night. Patient denies any itchiness and pain. [facility] Medical History Hernia Diabetes mellitus type 2, [...] recently dx???d w/ similar URI complaints. No wwec-gku-dudsyka taken to assist. No other associated symptoms [...] normal M (more content not included)... Normal [facility] Urgent Care Visit Reporton 1 09-28-2023 Urgent Care Visit Report [facility] [address] , [address] [place] [address] OFFICE VISIT Date of Service: 07/28/24 MR#: [id number] Acct: [id number] Name: DALE YOUSIF Rep #: [id number] : 1970 Provider: ISAAC Nur Age/Sex: 54/M Location: [facility] Status: Signed Intake Vital Signs 05/31/24 07:15 07/28/24 16:49 Height 6 ft 6 ft Weight: 200 lb BMI 27.1 BP 128/86 H Blood Pressure Location Lt brachial Position Sitting Respiration 16 Pulse 103 H Pulse Source Monitor Temp 97 F L Temp Source Oral Pulse Oximetry (%) 98 Oxygen Delivery Method room air Intake Visit Reasons: SINUS CONGESTION Chief Complaint: sinus congestion Core Driller Helper Required: No Accompanied by: Self Is patient [...] Exam Const General: cooperative and healthy appearing [facility] Head: normal to inspection Ears: hearing [...] Isaac Signature: Date (if applicable) CC: Normal [facility] Abdomen Limitedon 06-23-2024 Abdomen Limited [facility] [address] [place], [place] [address] Abdomen Limited MR#: [id number] Acct: [id number] Name: DALE YOUSIF Rep #: [id number] : 1970 M 54 From: Chau huntley MD PCP: Dr. Navneet Oconnor MD Status: [facility] Study: Abdomen Limited Date of Exam: 06/23/24 Exam# [id number] Ordering Dr: Navneet Oconnor -[id number] STUDY: ABDOMINAL ULTRASOUND - RIGHT UPPER [...] 15:07 EST Reading Location ID and State: [address] [place] [address] , Service support , CC: Dr. Navneet Oconnor MD Tanning Solution Maker: Signed Normal [facility] CBC W/Diff, Automatedon 10-3 0-2023 Absolute Lymph 2.38 X10 3/uL Normal 0.83-4.51 [facility] Comment on above: Order Comment: Order Date: 06/15/24 Order Info: 0184-1 - CBCD Performed By: #### L 100.0100, L500.4050 #### [facility] [address] [place], [address] Absolute Neut 3.9 X10 3/uL Normal 2.0-7.7 [facility] Comment on above: Order Comment: Order Date: 06/15/24 Order Info: 0184-1 - CBCD Performed By: #### L 100.0100, L500.4050 #### [facility] [address] [place], [address] Basophils/100 WBC (Bld) 0.7 % Normal 0-1 [facility] Comment on above: Order Comment: Order Date: 06/15/24 Order Info: 0184-1 - CBCD Performed By: #### L 100.0100, L500.4050 #### [facility] [address] [place], [address] Eosinophils/100 WBC (Bld) 2.9 % Normal 0-5 [facility] Comment on above: Order Comment: Order Date: 06/15/24 Order Info: 0184-1 - CBCD Performed By: #### L 100.0100, L500.4050 #### [facility] [address] [place], [address] Erythrocyte distribution width (RBC) [Ratio] 12.1 % Normal 11.6-14.6 [facility] Comment on above: Order Comment: Order Date: 06/15/24 Order Info: 0184-1 - CBCD Performed By: #### L 100.0100, L500.4050 #### [facility] [address] [place], [address] Hematocrit (Bld) [Volume fraction] 43.5 % Normal 40-54 [facility] Comment on above: Order Comment: Order Date: 06/15/24 Order Info: 0184-1 - CBCD Performed By: #### L 100.0100, L500.4050 #### [facility] [address] [place], [address] Hemoglobin (Bld) [Mass/Vol] 15.5 g/dL Normal 13.0-16.5 [facility] Comment on above: Order Comment: Order Date: 06/15/24 Order Info: 0184-1 - CBCD Performed By: #### L 100.0100, L500.4050 #### [facility] [address] [place], [address] IG% 0.700 Normal 0.0-0.9 [facility] Comment on above: Order Comment: Order Date: 06/15/24 Order Info: 0184- - CBCD Result Comment: IG% - Immature Granulocytes (promyelocytes, myelocytes and metamyelocytes) > 1% indicates that a LEFT SHIFT is Present. Performed By: #### L 100.0100, L500.4050 #### [facility] [address] [place], [address] Lymphocytes/100 WBC (Bld) 33.3 % Normal 19-41 [facility] Comment on above: Order Comment: Order Date: 06/15/24 Order Info: 0184- - CBCD Performed By: #### L 100.0100, L500.4050 #### [facility] [address] [place], [address] MCH (RBC) [Entitic mass] 30.2 pg Normal 27.0-32.0 [facility] Comment on above: Order Comment: Order Date: 06/15/24 Order Info: 0184- - CBCD Performed By: #### L 100.0100, L500.4050 #### [facility] [address] [place], [address] MCHC (RBC) [Mass/Vol] 35.6 g/dL Normal 32-36 [facility] Comment on above: Order Comment: Order Date: 06/15/24 Order Info: 0184- - CBCD Performed By: #### L 100.0100, L500.4050 #### [facility] [address] [place], [address] MCV (RBC) [Entitic vol] 84.6 fL Normal 80-94 [facility] Comment on above: Order Comment: Order Date: 06/15/24 Order Info: 0184-1 - CBCD Performed By: #### L 100.0100, L500.4050 #### [facility] [address] [place], [address] Monocytes/100 WBC (Bld) 8.1 % Normal 0-10 [facility] Comment on above: Order Comment: Order Date: 06/15/24 Order Info: 0184-1 - CBCD Performed By: #### L 100.0100, L500.4050 #### [facility] [address] [place], [address] Neutrophils/100 WBC (Bld) 54.3 % Normal 47-70 [facility] Comment on above: Order Comment: Order Date: 06/15/24 Order Info: 0184-1 - CBCD Performed By: #### L 100.0100, L500.4050 #### [facility] [address] [place], [address] Nucleated RBC (Bld) [#/Vol] 0 10*3/uL Normal 0-5 [facility] Comment on above: Order Comment: Order Date: 06/15/24 Order Info: 0184-1 - CBCD Performed By: #### L 100.0100, L500.4050 #### [facility] [address] [place], [address] Platelet mean volume (Bld) [Entitic vol] 10.4 fL Normal 6.2-12.0 [facility] Comment on above: Order Comment: Order Date: 06/15/24 Order Info: 0184-1 - CBCD Performed By: #### L 100.0100, L500.4050 #### [facility] [address] [place], [address] Platelets (Bld) [#/Vol] 248 10*3/uL Normal 150-450 [facility] Comment on above: Order Comment: Order Date: 06/15/24 Order Info: 0184-1 - CBCD Performed By: #### L 100.0100, L500.4050 #### [facility] [address] [place], [address] RBC (Bld) [#/Vol] 5.14 10*6/uL Normal 4.6-6.2 [facility] Comment on above: Order Comment: Order Date: 06/15/24 Order Info: 0184-1 - CBCD Performed By: #### L 100.0100, L500.4050 #### [facility] [address] [place], [address] RDW SD 36.6 fl Normal 35.1-43.9 [facility] Comment on above: Order Comment: Order Date: 06/15/24 Order Info: 0184- - CBCD Performed By: #### L 100.0100, L500.4050 #### [facility] [address] [place], [address] WBC (Bld) [#/Vol] 7.1 10*3/uL Normal 4.4-11.0 [facility] Comment on above: Order Comment: Order Date: 06/15/24 Order Info: 0184-1 - CBCD Performed By: #### L 100.0100, L500.4050 #### [facility] [address] [place], [address] Comprehensive Metabolic Prof ilon 06-15-2024 Albumin [Mass/Vol] 4.0 g/dL Normal 3.2-5.0 [facility] Comment on above: Order Comment: Order Date: 06/15/24 Order Info: 0786-1 - CMP Performed By: #### L 100.0100, L500.4050 #### [facility] [address] [place], [address] Albumin/Globulin [Mass ratio] 1.1 {ratio} Normal 0.9-2.4 [facility] Comment on above: Order Comment: Order Date: 06/15/24 Order Info: 0786-1 - CMP Performed By: #### L 100.0100, L500.4050 #### [facility] [address] [place], [address] ALK P 76 U/L Normal 45-117 [facility] Comment on above: Order Comment: Order Date: 06/15/24 Order Info: 0786-1 - CMP Performed By: #### L 100.0100, L500.4050 #### [facility] [address] [place], [address] ALT [Catalytic activity/Vol] 47 U/L Normal 16-61 [facility] Comment on above: Order Comment: Order Date: 06/15/24 Order Info: 0786-1 - CMP Performed By: #### L 100.0100, L500.4050 #### [facility] [address] [place], [address] AST [Catalytic activity/Vol] 22 U/L Normal 15-37 [facility] Comment on above: Order Comment: Order Date: 06/15/24 Order Info: 0786-1 - CMP Performed By: #### L 100.0100, L500.4050 #### [facility] [address] [place], [address] Bilirubin [Mass/Vol] 0.40 mg/dL Normal 0.20-1.00 [facility] Comment on above: Order Comment: Order Date: 06/15/24 Order Info: 0786-1 - CMP Result Comment: For patients on eltrombopag therapy, use of Dimension [place] TBIL is not recommended. Performed By: #### L 100.0100, L500.4050 #### [facility] [address] [place], [address] BUN/CRE 12.1 RATIO Normal 10-20 [facility] Comment on above: Order Comment: Order Date: 06/15/24 Order Info: 0786-1 - CMP Performed By: #### L 100.0100, L500.4050 #### [facility] [address] [place], [address] CA,Total 9.4 mg/dL Normal 8.5-10.1 [facility] Comment on above: Order Comment: Order Date: 06/15/24 Order Info: 0786-1 - CMP Performed By: #### L 100.0100, L500.4050 #### [facility] [address] [place], [address] Chloride [Moles/Vol] 99 mmol/L Normal 98-107 [facility] Comment on above: Order Comment: Order Date: 06/15/24 Order Info: 07-1 - CMP Performed By: #### L 100.0100, L500.4050 #### [facility] [address] [place], [address] CO2 [Moles/Vol] 30.0 mmol/L Normal 21.0-32.0 [facility] Comment on above: Order Comment: Order Date: 06/15/24 Order Info: 0786-1 - CMP Performed By: #### L 100.0100, L500.4050 #### [facility] [address] [place], [address] Creatinine [Mass/Vol] 1.07 mg/dL Normal 0.70-1.30 [facility] Comment on above: Order Comment: Order Date: 06/15/24 Order Info: 0786-1 - CMP Result Comment: The validity of the calculated GFR GFRAA in patients over 70 years has not been determined. Clinical correlation is essential. Performed By: #### L 100.0100, L500.4050 #### [facility] [address] [place], [address] EST GFR - AA 93 mL/min Normal >60 [facility] Comment on above: Order Comment: Order Date: 06/15/24 Order Info: 0786-1 - CMP Result Comment: Afri can Lao GFR Calc Performed By: #### L 100.0100, L500.4050 #### [facility] [address] [place], [address] GAP 5 Normal 5-15 [facility] Comment on above: Order Comment: Order Date: 06/15/24 Order Info: 0786-1 - CMP Performed By: #### L 100.0100, L500.4050 #### [facility] [facility] [address] [place], [address] GFR/1.73 sq M.predicted among non-blacks MDRD (S/P/Bld) [Vol rate/Area] 77 mL/min/{1.73_m2} Normal >60 [facility] Comment on above: Order Comment: Order Date: 06/15/24 Order Info: 0786-1 - CMP Result Comment: Non- GFR Calc Performed By: #### L 100.0100, L500.4050 #### [facility] [address] [place], [address] Globulin (S) [Mass/Vol] 3.6 g/dL Normal 2.2-4.2 [facility] Comment on above: Order Comment: Order Date: 06/15/24 Order Info: 0786-1 - CMP Performed By: #### L 100.0100, L500.4050 #### [facility] [address] [place], [address] Glucose [Mass/Vol] 256 mg/dL High 74-106 [facility] Comment on above: Order Comment: Order Date: 06/15/24 Order Info: 0786-1 - CMP Result Comment: Gluc ose result greater than or equal to 200 mg/dL suggests DIABETES MELLITUS per A.D.A. criteria. Performed By: #### L 100.0100, L500.4050 #### [facility] [address] [place], [address] Potassium [Moles/Vol] 3.5 mmol/L Normal 3.5-5.1 [facility] Comment on above: Order Comment: Order Date: 06/15/24 Order Info: 0786-1 - CMP Performed By: #### L 100.0100, L500.4050 #### [facility] [address] [place], [address] Sodium [Moles/Vol] 133 mmol/L Low 136-145 [facility] Comment on above: Order Comment: Order Date: 06/15/24 Order Info: 0786-1 - CMP Performed By: #### L 100.0100, L500.4050 #### [facility] [address], [address] T PROT 7.6 g/dL Normal 6.4-8.2 [facility] Comment on above: Order Comment: Order Date: 06/15/24 Order Info: 0786-1 - CMP Performed By: #### L 100.0100, L500.4050 #### [facility] [address] [place], [address] Urea nitrogen [Mass/Vol] 13 mg/dL Normal 7-18 [facility] Comment on above: Order Comment: Order Date: 06/15/24 Order Info: 0786-1 - CMP Performed By: #### L 100.0100, L500.4050 #### [facility] [address] [place], [address] 12 Lead EKGon 05-31-2024 12 Lead EKG [facility] [address] [place] [address] 12 Lead EKG 05/31/24 0747 MR#: [id number] Acct: [id number] Name: DALE YOUSIF Rep #: [id number] : 1970 54 From: Lazarus Bhatt MD [...] undetermined Abnormal ECG Confirmed by Lazarus Bhatt ([id number]), technical writer and editor TYLOR HERNANDEZ ([id number]) on 06/01/2024 9:23:00 AM Referred By: Confirmed By:Lazarus Bhatt 06/01/24922 Date Lazarus Bhatt MD CC: Dr. Navneet Oconnor MD; Dr. Esteban Cross DO Signed Normal [facility] Abdomen/Pelvis W IV Cont ONL Yo 05-31-2024 Abdomen/Pelvis W IV Cont ONLY [facility] Imaging Services [address] [place] [address] [id number] Abdomen/Pelvis W IV Cont ONLY MR#: [id number] Acct: [id number] Name: DALE YOUSIF Rep #: [id number] : 1970 M 54 From: Franklin Reeder MD PCP: Dr. Navneet Oconnor MD Status: REG ER Study: Abdomen/Pelvis W IV Cont ONLY Date of Exam: Exam# [id number] Ordering Dr: Esteban Cross DO [id number] EXAM: CT ABDOMEN AND PELVIS WITH [...] Navneet Oconnor MD; Dr. Esteban Cross DO [place] Solution Maker: Signed Normal [facility] CBC-Complete Blood Cnt No Di ffon 05-31-2024 Erythrocyte distribution width (RBC) [Ratio] 12.0 % Normal 11.6-14.6 [facility] Comment on above: Performed By: #### L 503.6005 #### [facility] [address] [place], [address] Hematocrit (Bld) [Volume fraction] 44.8 % Normal 40-54 [facility] Comment on above: Performed By: #### L 503.6005 #### [facility] [address] [place], [address] Hemoglobin (Bld) [Mass/Vol] 15.6 g/dL Normal 13.0-16.5 [facility] Comment on above: Performed By: #### L 503.6005 #### [facility] [address] [place], [address] MCH (RBC) [Entitic mass] 29.9 pg Normal 27.0-32.0 [facility] Comment on above: Performed By: #### L 503.6005 #### [facility] [address] [place], [address] MCHC (RBC) [Mass/Vol] 34.8 g/dL Normal 32-36 [facility] Comment on above: Performed By: #### L 503.6005 #### [facility] [address] [place], [address] MCV (RBC) [Entitic vol] 86.0 fL Normal 80-94 [facility] Comment on above: Performed By: #### L 503.6005 #### [facility] [address] [place], [address] Platelet mean volume (Bld) [Entitic vol] 10.3 fL Normal 6.2-12.0 [facility] Comment on above: Performed By: #### L 503.6005 #### [facility] [address] [place], [address] Platelets (Bld) [#/Vol] 224 10*3/uL Normal 150-450 [facility] Comment on above: Performed By: #### L 503.6005 #### [facility] [address] [place], [address] RBC (Bld) [#/Vol] 5.21 10*6/uL Normal 4.6-6.2 [facility] Comment on above: Performed By: #### L 503.6005 #### [facility] [address] [place], [address] RDW SD 37.9 fl Normal 35.1-43.9 [facility] Comment on above: Performed By: #### L 503.6005 #### [facility] [address] [place], [address] WBC (Bld) [#/Vol] 10.9 10*3/uL Normal 4.4-11.0 [facility] Comment on above: Performed By: #### L 503.6005 #### [facility] [address] [place], [address] Chest 1 View (Portable)on Chest 1 View (Portable) [facility] Imaging Services [address] [place] [address] Chest 1 View (Portable) MR#: [id number] Acct: [id number] Name: DALE YOUSIF Rep #: [id number] : 1970 M 54 From: Franklin Reeder MD PCP: Dr. Navneet Oconnor MD Status: REG ER Study: Chest 1 View (Portable) Date of Exam: 05/31/24 Exam# [id number] Ordering Dr: Esteban Cross DO -[id number] EXAM: XR CHEST, 1 VIEW CLINICAL [...] Navneet Oconnor MD; Dr. Esteban Cross DO [place] Solution Maker: Signed Normal [facility] Comprehensive Metabolic Prof ilon 05-31-2024 Albumin [Mass/Vol] 3.8 g/dL Normal 3.2-5.0 [facility] Comment on above: Order Comment: Comme nts: repeat after 1 L Y Performed By: #### L 503.6005 #### [facility] [address] [place], [address] Albumin/Globulin [Mass ratio] 1.0 {ratio} Normal 0.9-2.4 [facility] Comment on above: Order Comment: Comme nts: repeat after 1 L Y Performed By: #### L 503.6005 #### [facility] [address] [place], [address] ALK P 82 U/L Normal 45-117 [facility] Comment on above: Order Comment: Comme nts: repeat after 1 L Y Performed By: #### L 503.6005 #### [facility] [address] [place], [address] ALT [Catalytic activity/Vol] 51 U/L Normal 16-61 [facility] Comment on above: Order Comment: Comme nts: repeat after 1 L Y Performed By: #### L 503.6005 #### [facility] [address] [place], [address] AST [Catalytic activity/Vol] 30 U/L Normal 15-37 [facility] Comment on above: Order Comment: Comme nts: repeat after 1 L Y Performed By: #### L 503.6005 #### [facility] [address] [place], [address] Bilirubin [Mass/Vol] 0.60 mg/dL Normal 0.20-1.00 [facility] Comment on above: Order Comment: Comme nts: repeat after 1 L Y Result Comment: For patients on eltrombopag therapy, use of Dimension [place] TBIL is not recommended. Performed By: #### L 503.6005 #### [facility] [address] [place], [address] BUN/CRE 12.9 RATIO Normal 10-20 [facility] Comment on above: Order Comment: Comme nts: repeat after 1 L Y Performed By: #### L 503.6005 #### [facility] [address] [place], [address] CA,Total 10.0 mg/dL Normal 8.5-10.1 [facility] Comment on above: Order Comment: Comme nts: repeat after 1 L Y Performed By: #### L 503.6005 #### [facility] [address] [place], [address] Chloride [Moles/Vol] 102 mmol/L Normal 98-107 [facility] Comment on above: Order Comment: Comme nts: repeat after 1 L Y Performed By: #### L 503.6005 #### [facility] [address] [place], [address] CO2 [Moles/Vol] 25.0 mmol/L Normal 21.0-32.0 [facility] Comment on above: Order Comment: Comme nts: repeat after 1 L Y Performed By: #### L 503.6005 #### [facility] [address] [place], [address] Creatinine [Mass/Vol] 1.55 mg/dL High 0.70-1.30 [facility] Comment on above: Order Comment: Comme nts: repeat after 1 L Y Result Comment: The validity of the calculated GFR GFRAA in patients over 70 years has not been determined. Clinical correlation is essential. Performed By: #### L 503.6005 #### [facility] [address] [place], [address] ECRCL 68.90 ml/min Normal [facility] Comment on above: Order Comment: Comme nts: repeat after 1 L Y Performed By: #### L 503.6005 #### [facility] [address] [place], [address] EST GFR - AA 61 mL/min Normal >60 [facility] Comment on above: Order Comment: Comme nts: repeat after 1 L Y Result Comment: Afri can Lao GFR Calc Performed By: #### L 503.6005 #### [facility] [address] [place], [address] GAP 9 Normal 5-15 [facility] Comment on above: Order Comment: Comme nts: repeat after 1 L Y Performed By: #### L 503.6005 #### [facility] [address] [place], [address] GFR/1.73 sq M.predicted among non-blacks MDRD (S/P/Bld) [Vol rate/Area] 50 mL/min/{1.73_m2} Low >60 [facility] Comment on above: Order Comment: Comme nts: repeat after 1 L Y Result Comment: Non- GFR Calc Performed By: #### L 503.6005 #### [facility] [address] [place], [address] Globulin (S) [Mass/Vol] 3.9 g/dL Normal 2.2-4.2 [facility] Comment on above: Order Comment: Comme nts: repeat after 1 L Y Performed By: #### L 503.6005 #### [facility] [address] [place], [address] Glucose [Mass/Vol] 283 mg/dL High 74-106 [facility] Comment on above: Order Comment: Comme nts: repeat after 1 L Y Result Comment: Gluc ose result greater than or equal to 200 mg/dL suggests DIABETES MELLITUS per A.D.A. criteria. Performed By: #### L 503.6005 #### [facility] [address] [place], [address] Potassium [Moles/Vol] 3.9 mmol/L Normal 3.5-5.1 [facility] Comment on above: Order Comment: Comme nts: repeat after 1 L Y Performed By: #### L 503.6005 #### [facility] [address] [place], [address] Sodium [Moles/Vol] 136 mmol/L Normal 136-145 [facility] Comment on above: Order Comment: Comme nts: repeat after 1 L Y Performed By: #### L 503.6005 #### [facility] [address] [place], [address] T PROT 7.7 g/dL Normal 6.4-8.2 [facility] Comment on above: Order Comment: Comme nts: repeat after 1 L Y Performed By: #### L 503.6005 #### [facility] [address] [place], [address] Urea nitrogen [Mass/Vol] 20 mg/dL High 7-18 [facility] Comment on above: Order Comment: Comme nts: repeat after 1 L Y Performed By: #### L 503.6005 #### [facility] [address] [place], [address] Emergency Department Summary on 05-31-2024 Emergency Department Summary [facility] Medical Records Department [address] [place] [address] Emergency Department Summary 05/31/24 MR#: [id number] Acct: [id number] Name: DALE YOUSIF Rep #: [id number] : 1970 54 From: Esteban Cross DO PCP: Dr. Navneet Oconnor MD Status:REG ER Location: ED HPI History of Present Illness Chief Complaint: Abd Pain [facility] Medical History (Reviewed 03/07/24 @ 15:45 by Meek Gonzalez TELEPHONE INFORMATION SUPERVISOR, TELEPHONE INFORMATION SUPERVISOR-C) Hernia Diabetes mellitus type 2, uncontrolled Syncope [...] Upset Verified 05/31/24 07:15 Stomach Surgical History (Reviewed 03/07/24 @ 15:45 by Meek Gonzalez TELEPHONE INFORMATION SUPERVISOR, TELEPHONE INFORMATION SUPERVISOR-C) Hx of shoulder surgery Social History (Reviewed 03/07/24 @ 15:45 by Meek Gonzalez TELEPHONE INFORMATION SUPERVISOR, TELEPHONE INFORMATION SUPERVISOR-C) Smoking Status: Never smoker alcohol intake: never [...] History obtained from others: Patient's Consults: none [facility] Narrative: The patient was initially hemodynamically stable, tachycardic with a rate of 116 otherwise afebrile and nontoxic-appearing. I considered the following differential diagnosis: Acute pancreatitis, gallbladder etiology, hepatobiliary obstruction, perforation, ACS, arrhythmia, anemia, pneumonia, electrolyte disturbance I obtained a broad lab and imaging wor (more content not included)... Normal [facility] L501.4020on 05-31-2024 TROPONIN-I HS 4 pg/mL Normal 3.0-78.0 [facility] Comment on above: Result Comment: Plea se Note: New Test Units and Gender Specific Reference Ranges. For more information see Policy Stat Procedure [place] High Sensitivity Troponin (TNIH) and attachments. Performed By: #### L 503.6005 #### [facility] [address] [place], [place], [address] L501.5425on 05-31-2024 TROPONIN-I HS 4 pg/mL Normal 3.0-78.0 [facility] Comment on above: Order Comment: Comme nts: repeat after 1 L Y Result Comment: Plea se Note: New Test Units and Gender Specific Reference Ranges. For more information see Policy Stat Procedure [place] High Sensitivity Troponin (TNIH) and attachments. Performed By: #### L 503.6005 #### [facility] [address] [place], [place], [address] Lactic Acidon 05-31-2024 Lactate [Moles/Vol] 2.3 mmol/L Invalid Interpretation Code 0.4-1.9 [facility] Comment on above: Order Comment: Comme nts: repeat after 1 L Y Result Comment: Crit ical Result(s) Called at: 11:27:06 05/31/2024 by: Suellen Flanagan. Results read back by same. Performed By: #### L 503.6005 #### [facility] [address] [place], [place], [address] Lactate [Moles/Vol] 3.4 mmol/L Invalid Interpretation Code 0.4-1.9 [facility] Comment on above: Order Comment: Comme nts: repeat after 1 L Y Result Comment: Crit ical Result(s) Called at: 08:40:28 05/31/2024 by: SUELLEN ALBERTO to Cristina Toribio. Results read back by same. Performed By: #### L 503.6005 #### [facility] [address] [place], [place], [address] Lipaseon 05-31-2024 Lipase [Catalytic activity/Vol] 26 U/L Normal 13-75 [facility] Comment on above: Order Comment: Comme nts: repeat after 1 L Y Result Comment: Mavis sands note: LIPASE revised reference range effective 22. New Lipase methodology. Expected to produce lower values than the previous assay method. NEW Reference Range: 13 - 75 U/L Performed By: #### L 503.6005 #### [facility] [address] [place], [address] Basic Metabolic Profile (BMP )on 05-03-2024 BUN/CRE 13.8 RATIO Normal 10-20 [facility] Comment on above: Order Comment: AGAIN. Order Date: 07/06/23 Order Info: 06 - BMP Order Info: 3015-3 - TSH Performed By: #### L 501.9520, L500.2500 #### [facility] [address] [place], [address] CA,Total 9.6 mg/dL Normal 8.5-10.1 [facility] Comment on above: Order Comment: AGAIN. Order Date: 07/06/23 Order Info: 06 - BMP Order Info: 3015-3 - TSH Performed By: #### L 501.9520, L500.2500 #### [facility] [address] [place], [address] Chloride [Moles/Vol] 104 mmol/L Normal 98-107 [facility] Comment on above: Order Comment: AGAIN. Order Date: 07/06/23 Order Info: 06 - BMP Order Info: 3015-3 - TSH Performed By: #### L 501.9520, L500.2500 #### [facility] [address] [place], [address] CO2 [Moles/Vol] 26.0 mmol/L Normal 21.0-32.0 [facility] Comment on above: Order Comment: AGAIN. Order Date: 07/06/23 Order Info: 0667- - BMP Order Info: 301-3 - TSH Performed By: #### L 501.9520, L500.2500 #### [facility] [address] [place], [address] Creatinine [Mass/Vol] 1.09 mg/dL Normal 0.70-1.30 [facility] Comment on above: Order Comment: AGAIN. Order Date: 07/06/23 Order Info: 06 - BMP Order Info: 3015-10 - TSH Result Comment: The validity of the calculated GFR GFRAA in patients over 70 years has not been determined. Clinical correlation is essential. Performed By: #### L 501.9520, L500.2500 #### [facility] [address] [place], [address] EST GFR - AA 91 mL/min Normal >60 [facility] Comment on above: Order Comment: AGAIN. Order Date: 07/06/23 Order Info: 06 - BMP Order Info: 3015-10 - TSH Result Comment: Afri can Lao GFR Calc Performed By: #### L 501.9520, L500.2500 #### [facility] [address] [place], [address] GAP 8 Normal 5-15 [facility] Comment on above: Order Comment: AGAIN. Order Date: 07/06/23 Order Info: 06 - BMP Order Info: 3015-10 - TSH Performed By: #### L 501.9520, L500.2500 #### [facility] [address] [place], [address] GFR/1.73 sq M.predicted among non-blacks MDRD (S/P/Bld) [Vol rate/Area] 76 mL/min/{1.73_m2} Normal >60 [facility] Comment on above: Order Comment: AGAIN. Order Date: 07/06/23 Order Info: 06- - BMP Order Info: 3015-10 - TSH Result Comment: Non- GFR Calc Performed By: #### L 501.9520, L500.2500 #### [facility] [address] [place], [address] Glucose [Mass/Vol] 216 mg/dL High 74-106 [facility] Comment on above: Order Comment: AGAIN. Order Date: 07/06/23 Order Info: 666-08 - BMP Order Info: 3 - TSH Result Comment: Gluc ose result greater than or equal to 200 mg/dL suggests DIABETES MELLITUS per A.D.A. criteria. Performed By: #### L 501.9520, L500.2500 #### [facility] [address] [place], [address] Potassium [Moles/Vol] 3.7 mmol/L Normal 3.5-5.1 [facility] Comment on above: Order Comment: AGAIN. Order Date: 07/06/23 Order Info: 666-08 - BMP Order Info: 3015-10 - TSH Performed By: #### L 501.9520, L500.2500 #### [facility] [address] [place], [address] Sodium [Moles/Vol] 138 mmol/L Normal 136-145 [facility] Comment on above: Order Comment: AGAIN. Order Date: 07/06/23 Order Info: 666-08 - BMP Order Info: 3015-10 - TSH Performed By: #### L 501.9520, L500.2500 #### [facility] [address] [place], [address] Urea nitrogen [Mass/Vol] 15 mg/dL Normal 7-18 [facility] Comment on above: Order Comment: AGAIN. Order Date: 07/06/23 Order Info: 666-08 - BMP Order Info: 3015-10 - TSH Performed By: #### L 501.9520, L500.2500 #### [facility] [address] [place], [address] Lipid Profileon 05-03-2024 Cholesterol [Mass/Vol] 255 mg/dL High 200 [facility] Comment on above: Order Comment: AGAIN. Order Date: 07/06/23 Order Info: 666-08 - [facility] Order Info: 3015-10 - TSH Result Comment: <200 mg/dL Desirable 200-240 mg/dL Borderline >240 mg/dL High Risk Performed By: #### L 500.4100, L501.9910 #### [facility] [address] [place], [address] Cholesterol in HDL [Mass/Vol] 36 mg/dL Low [facility] Comment on above: Order Comment: AGAIN. Order Date: 07/06/23 Order Info: 061 - [facility] Order Info: 3015-10 - TSH Result Comment: The drugs N-Acetylcysteine and Metamizole may falsely depress this assay. Reference Range HDL <40 mg/dL Low HDL Cholesterol HDL >or= 60 mg/dL High HDL Cholesterol Performed By: #### L 500.4100, L501.9910 #### [facility] [address] [place], [address] LDL TNP Normal 0-130 [facility] Comment on above: Order Comment: AGAIN. Order Date: 07/06/23 Order Info: 06 - [facility] Order Info: 3015-10 - TSH Performed By: #### L 500.4100, L501.9910 #### [facility] [address] [place], [address] Triglyceride [Mass/Vol] 468 mg/dL High [facility] Comment on above: Order Comment: AGAIN. Order Date: 07/06/23 Order Info: 06 - [facility] Order Info: 3015-10 - TSH [...] Performed By: #### L 500.4100, L501.9910 #### [facility] [address] [place], [address] VLDL TNP Normal 5-40 [facility] Comment on above: Order Comment: AGAIN. Order Date: 07/06/23 Order Info: 0667-1 - BMP Order Info: 3016-3 - TSH Performed By: #### L 500.4100, L501.9910 #### [facility] [address] [place], [address] PSA,Total - Annual Screenon 05-03-2024 PSA,TOT SCREEN 0.54 ng/mL Normal 0.00-4.00 [facility] Comment on above: Order Comment: AGAIN. Order Date: 07/06/23 Order Info: 0667-1 - BMP Order Info: 3016-3 - TSH Result Comment: This test was performed using the TPSA assay method for the [employer] [place] chemistry system. Values obtained with different assay methods cannot be used interchangably. When changing PSA assays in the course of monitoring a patient, additional sequential testing should be carried out to confirm baseline values. Performed By: #### L 500.4100, L501.9910 #### [facility] [address] [place], [address] Thyroid Stim Hormone (TSH)on 05-03-2024 TSH 1.420 uIU/mL Normal 0.358-3.740 [facility] Comment on above: Order Comment: AGAIN. Order Date: 07/06/23 Order Info: 0667-1 - BMP Order Info: 3016-3 - TSH Performed By: #### L 501.9520, L500.2500 #### [facility] [address] [place], [address] Basophil percentageOrdered B y: Navneet Oconnor on 12-22-2023 Testosterone [Mass/Vol] 263.27 ng/dL [facility] Comment on above: CENTRAL 90% REFERENC E RANGES MALE AGE <50 197.44 - 669.58 ng/dL MALE AGE > or = 50 187.72 - 684.19 ng/dL FEMALE AGE <50 8.38 - 35.01 ng/dL FEMALE AGE > or = 50 <7.00 - 35.92 ng/dL Effective as of 03/12/21 Basophil percentageOrdered B y: Dat Oconnor on 10-28-2023 Testosterone [Mass/Vol] 214.15 ng/dL [facility] Comment on above: CENTRAL 90% REFERENC E RANGES MALE AGE <50 197.44 - 669.58 ng/dL MALE AGE > or = 50 187.72 - 684.19 ng/dL FEMALE AGE <50 8.38 - 35.01 ng/dL FEMALE AGE > or = 50 <7.00 - 35.92 ng/dL Effective as of 03/12/21 Absolute lymphocyte countOrd ered By: Benito Dasilva on 07-08-2023 Lymphocytes Auto (Unsp spec) [#/Vol] 2.09 10*3/uL 0.83-4.51 [facility] Basophil percentageOrdered B y: Benito Dasilva on 07-08-2023 Basophils/100 WBC (Bld) 0.7 % 0-1 [facility] Chloride [Moles/Vol] 106 mmol/L 98-107 [facility] Eosinophils/100 WBC (Bld) 2.0 % 0-5 [facility] Glucose [Mass/Vol] 142 mg/dL 74-106 [facility] Comment on above: Fasting Glucose resu lt greater than or equal to 126 mg/dL suggests DIABETES MELLITUS per A.D.A. criteria. Neutrophils (Bld) [#/Vol] 4.3 10*3/uL 2.0-7.7 [facility] Neutrophils/100 WBC (Bld) 61.0 % 47-70 [facility] Potassium [Moles/Vol] 4.0 mmol/L 3.5-5.1 [facility] Comment on above: Slight Hemolysis, Re sult may be falsely increased. Sodium [Moles/Vol] 139 mmol/L 136-145 [facility] WBC (Bld) [#/Vol] 7.0 10*3/uL 4.4-11.0 [facility] Blood erythrocytes count (nu mber/volume)Ordered By: Benito Dasilva on 07-08-2023 RBC (Bld) [#/Vol] 5.32 10*6/uL 4.6-6.2 [facility] Blood hemoglobin measurement (mass/volume)Ordered By: Benito Dasilva on 07-08-2023 Hemoglobin (Bld) [Mass/Vol] 15.8 g/dL 13.0-16.5 [facility] Blood lymphocytes/100 leukoc ytesOrdered By: Pebbles Brown on 07-08-2023 Lymphocytes/100 WBC (Bld) 30.0 % 19-41 [facility] Blood monocytes/100 leukocyt esOrdered By: [place] rBown on 07-08-2023 Monocytes/100 WBC (Bld) 5.7 % 0-10 [facility] Blood platelet mean volumeOr dered By: [facility] Brown on 07-08-2023 Platelet mean volume (Bld) [Entitic vol] 10.0 fL 6.2-12.0 [facility] Determination of erythrocyte mean corpuscular volume (MCV)Ordered By: Benito Dasilva on 07-08-2023 MCV (RBC) [Entitic vol] 84.0 fL 80-94 [facility] Hematocrit Auto (Bld) [Volum e fraction][facility]: [facility] 07-[facility]2023 Hematocrit (Bld) [Volume fraction] 44.7 % 40-54 [facility] Laboratory - Chemistry and C hemistry - challengeOrdered By: [facility] on 07-08-2023 CO2 [Moles/Vol] 27.0 mmol/L 21.0-32.0 [facility] Urea nitrogen/Creatinine [Mass ratio] 10.5 mg/mg 10-20 [facility] Laboratory - Hematology and Cell countsOrdered By: [facility] on 07-08-2023 Erythrocyte distribution width (RBC) [Entitic vol] 36.3 fL 35.1-43.9 [facility] Erythrocyte distribution width (RBC) [Ratio] 12.0 % 11.6-14.6 [facility] Immature granulocytes/100 WBC (Bld) 0.600 % 0.0-0.9 [facility] Comment on above: IG% - Immature Granu locytes (promyelocytes, myelocytes and metamyelocytes) > 1% indicates that a LEFT SHIFT is Present. MCH (RBC) [Entitic mass] 29.7 pg 27.0-32.0 [facility] Nucleated RBC/100 WBC (Bld) [Ratio] 0 % 0-5 [facility] Auto ([facility]BC) [Mass/Vol]Or dered By: Benito Dasilva on 07-08-2023 MCHC (RBC) [Mass/Vol] 35.3 g/dL 32-36 [facility] No Panel InformationOrdered By: Benito Dasilva on 07-08-2023 Estimated Creatinine Clearance Calc 85.94 ml/min [facility] Estimated GFR (MDRD) Amer 96 mL/min >60 [facility] Comment on above: GFR Calc Estimated GFR (MDRD) Non-Af Amer 79 mL/min >60 [facility] Comment on above: Non- GFR Calc Troponin I High Sensitivity 8 pg/mL 3.0-78.0 [facility] Comment on above: Please Note: New Lily t Units and Gender Specific Reference Ranges. For more information see Policy Stat Procedure [place] High Sensitivity Troponin (TNIH) and attachments. Platelets bldOrdered By: Pebbles Brown on 07-08-2023 Platelets (Bld) [#/Vol] 217 10*3/uL 150-450 [facility] Serum or plasma calcium dejan urement (mass/volume)Ordered By: Benito Dasilva on 07-08-2023 Calcium [Mass/Vol] 9.6 mg/dL 8.5-10.1 [facility] Serum or plasma creatinine m easurement (mass/volume)Ordered By: Benito Dasilva on 07-08-2023 Creatinine [Mass/Vol] 1.05 mg/dL 0.70-1.30 [facility] Comment on above: The validity of the calculated GFR & GFRAA in patients over 70 years has not been determined. Clinical correlation is essential. Serum or plasma urea nitroge n measurement (mass/volume)Ordered By: Benito Dasilva on 07-08-2023 Urea nitrogen [Mass/Vol] 11 mg/dL 7-18 [facility] Thin prep Papanicolaou smear with manual screeningOrdered By: [facility] on 07-08-2023 Thin prep Papanicolaou smear with manual screening 6 5-15 [facility] CBC W Auto Differential pane l (Bld)on 06-25-2023 Basophils (Bld) [#/Vol] 0.04 10*3/uL Normal <0.11 [facility] Comment on above: Order Comment: Speci men Type: BLOOD SPECIMEN Ordering Facility: [facility] Address: [address] [place] [address] Performed By: #### 5 7021-8 #### [facility] CLIA [id number] [address] [place] [address] [place] Basophils/100 WBC (Bld) 0.4 % Normal [facility] Comment on above: Order Comment: Speci men Type: BLOOD SPECIMEN Ordering Facility: [facility] Address: [address] [place] [address] Performed By: #### 5 7021-8 #### [facility] CLIA [id number] [address] [place] [address] [place] Differential cell count method Nom (Bld) Auto Normal [facility] Comment on above: Order Comment: Speci men Type: BLOOD SPECIMEN Ordering Facility: [facility] Address: [address] [place] [address] Performed By: #### 5 7021-8 #### [facility] CLIA [id number] [address] [place] [address] [place] Eosinophils (Bld) [#/Vol] 0.05 10*3/uL Normal <0.46 [facility] Comment on above: Order Comment: Speci men Type: BLOOD SPECIMEN Ordering Facility: [facility] Address: [address] [place] [address] Performed By: #### 5 7021-8 #### [facility] CLIA [id number] [address] [place] [address] [place] Eosinophils/100 WBC (Bld) 0.5 % Normal [facility] Comment on above: Order Comment: Speci men Type: BLOOD SPECIMEN Ordering Facility: [facility] Address: [address] [place] [address] Performed By: #### 5 7021-8 #### [facility] CLIA [id number] [address] [place] [address] [place] Erythrocyte distribution width (RBC) [Ratio] 12.0 % Normal 11.5-15.0 [facility] Comment on above: Order Comment: Speci men Type: BLOOD SPECIMEN Ordering Facility: [facility] Address: [address] [place] [address] Performed By: #### 5 7021-8 #### [facility] CLIA [id number] [address] [place] [address] [place] Hematocrit (Bld) [Volume fraction] 44.7 % Normal 39.0-51.0 [facility] Comment on above: Order Comment: Speci men Type: BLOOD SPECIMEN Ordering Facility: [facility] Address: [address] [place] [address] Performed By: #### 5 7021-8 #### [facility] CLIA [id number] [address] [place] [address] [place] Hemoglobin (Bld) [Mass/Vol] 16.6 g/dL Normal 13.0-17.0 [facility] Comment on above: Order Comment: Speci men Type: BLOOD SPECIMEN Ordering Facility: [facility] Address: [address] [place] [address] Performed By: #### 5 7021-8 #### [facility] CLIA [id number] [facility] [place] [address] [place] Immature granulocytes (Bld) [#/Vol] 0.05 10*3/uL Normal <0.10 [facility] Comment on above: Order Comment: Speci men Type: BLOOD SPECIMEN Ordering Facility: [facility] Address: [address] [place] [address] Performed By: #### 5 7021-8 #### [facility] CLIA [id number] [address] [place] [address] [place] Immature granulocytes/100 WBC (Bld) 0.5 % Normal [facility] Comment on above: Order Comment: Speci men Type: BLOOD SPECIMEN Ordering Facility: [facility] Address: [address] [place] [address] Performed By: #### 5 7021-8 #### [facility] CLIA [id number] [address] [place] [address] [place] Lymphocytes (Bld) [#/Vol] 1.44 10*3/uL Normal 1.00-4.00 [facility] Comment on above: Order Comment: Speci men Type: BLOOD SPECIMEN Ordering Facility: [facility] Address: [address] [place] [address] Performed By: #### 5 7021-8 #### [facility] CLIA [id number] [address] [place] [address] [place] Lymphocytes/100 WBC (Bld) 15.6 % Normal [facility] Comment on above: Order Comment: Speci men Type: BLOOD SPECIMEN Ordering Facility: [facility] Address: [address] [place] [address] Performed By: #### 5 7021-8 #### [facility] CLIA [id number] [address] [place] [address] [place] MCH (RBC) [Entitic mass] 30.4 pg Normal 26.0-34.0 [facility] Comment on above: Order Comment: Speci men Type: BLOOD SPECIMEN Ordering Facility: [facility] Address: [address] [place] [address] Performed By: #### 5 7021-8 #### [facility] CLIA [id number] [address] [place] [address] [place] MCHC (RBC) [Mass/Vol] 37.1 g/dL High 30.5-36.0 [facility] Comment on above: Order Comment: Speci men Type: BLOOD SPECIMEN Ordering Facility: [facility] Address: [address] [place] [address] Performed By: #### 5 7021-8 #### [facility] CLIA [id number] [address] [place] [address] [place] MCV (RBC) [Entitic vol] 81.9 fL Normal 80.0-100.0 [facility] Comment on above: Order Comment: Speci men Type: BLOOD SPECIMEN Ordering Facility: [facility] Address: [address] [place] [address] Performed By: #### 5 7021-8 #### [facility] CLIA [id number] [address] [place] [address] [place] Monocytes (Bld) [#/Vol] 0.45 10*3/uL Normal <0.87 [facility] Comment on above: Order Comment: Speci men Type: BLOOD SPECIMEN Ordering Facility: [facility] Address: [address] [place] [address] Performed By: #### 5 7021-8 #### [facility] CLIA [id number] [address] [place] [address] [place] Monocytes/100 WBC (Bld) 4.9 % Normal [facility] Comment on above: Order Comment: Speci men Type: BLOOD SPECIMEN Ordering Facility: [facility] Address: [address] [place] [address] Performed By: #### 5 7021-8 #### [facility] CLIA [id number] [address] [place] [address] [place] Neutrophils (Bld) [#/Vol] 7.20 10*3/uL Normal 1.45-7.50 [facility] Comment on above: Order Comment: Speci men Type: BLOOD SPECIMEN Ordering Facility: [facility] Address: [address] [place] [address] Performed By: #### 5 7021-8 #### [facility] CLIA [id number] [address] [place] [address] [place] Neutrophils/100 WBC (Bld) 78.1 % Normal [facility] Comment on above: Order Comment: Speci men Type: BLOOD SPECIMEN Ordering Facility: [facility] Address: [address] [place] [address] Performed By: #### 5 7021-8 #### [facility] CLIA [id number] [address] [place] [address] [place] Nucleated RBC (Bld) [#/Vol] 10*3/uL Normal <0.01 [facility] Comment on above: Order Comment: Speci men Type: BLOOD SPECIMEN Ordering Facility: [facility] Address: [address] [place] [address] Performed By: #### 5 7021-8 #### [facility] CLIA [id number] [address] [place] [address] [place] Nucleated RBC/100 WBC (Bld) [Ratio] 0.0 /100 WBC Normal [facility] Comment on above: Order Comment: Speci men Type: BLOOD SPECIMEN Ordering Facility: [facility] Address: [address] [place] [address] Performed By: #### 5 7021-8 #### [facility] CLIA [id number] [address] [place] [address] [place] Platelet mean volume (Bld) [Entitic vol] 10.0 fL Normal 9.0-12.7 [facility] Comment on above: Order Comment: Speci men Type: BLOOD SPECIMEN Ordering Facility: [facility] Address: [address] [place] [address] Performed By: #### 5 7021-8 #### [facility] CLIA [id number] [address] [place] [address] [place] Platelets (Bld) [#/Vol] 233 10*3/uL Normal 150-400 [facility] Comment on above: Order Comment: Speci men Type: BLOOD SPECIMEN Ordering Facility: [facility] Address: [address] [place] [address] Performed By: #### 5 7021-8 #### [facility] CLIA [id number] [address] [place] [address] [place] RBC (Bld) [#/Vol] 5.46 10*6/uL Normal 4.20-6.00 [facility] Comment on above: Order Comment: Speci men Type: BLOOD SPECIMEN Ordering Facility: [facility] Address: [address] [place] [address] Performed By: #### 5 7021-8 #### [facility] CLIA [id number] [address] [place] [address] [place] WBC (Bld) [#/Vol] 9.23 10*3/uL Normal 3.70-11.00 [facility] Comment on above: Order Comment: Speci men Type: BLOOD SPECIMEN Ordering Facility: [facility] Address: [address] [place] [address] Performed By: #### 5 7021-8 #### [facility] CLIA [id number] [address] [place] [address] [place] CT BRAIN WO IVCONon 06-25-[address] BRAIN WO IVCON * * *Final Report* * * DATE OF EXAM: Jun 24 2023 11:34PM [facility] 0504 - CT BRAIN WO IVCON / [...] No evidence of an acute intracranial process. Tanning Solution Maker: NICOLE Transcribe Date/Time: Jun 24 2023 11:41P Dictated by : LIZ ALBERT MD This examination was interpreted and the report reviewed and electronically signed by: LIZ ALBERT MD on Jun 24 2023 11:43PM EST [id number] Normal [facility] Comprehensive metabolic 2000 panelon 06-25-2023 Albumin [Mass/Vol] 4.6 g/dL Normal 3.9-4.9 [facility] Comment on above: Order Comment: Speci men Type: BLOOD SPECIMEN Ordering Facility: [facility] Address: [address] [place] [address] Performed By: #### 2 4323-8, [id number] #### [facility] CLIA [id number] [address] [place] [address] [place] ALP [Catalytic activity/Vol] 73 U/L Normal 38-113 [facility] Comment on above: Order Comment: Speci men Type: BLOOD SPECIMEN Ordering Facility: [facility] Address: [address] [place] [address] Performed By: #### 2 4323-8, [id number] #### [facility] CLIA [id number] [address] [place] [address] [place] ALT [Catalytic activity/Vol] 38 U/L Normal 10-54 [facility] Comment on above: Order Comment: Speci men Type: BLOOD SPECIMEN Ordering Facility: [facility] Address: [address] [place] [address] Performed By: #### 2 4323-8, [id number] #### [facility] CLIA [id number] [address] [place] [address] [place] Anion gap [Moles/Vol] 12 mmol/L Normal 9-18 [facility] Comment on above: Order Comment: Speci men Type: BLOOD SPECIMEN Ordering Facility: [facility] Address: [address] [place] [address] Performed By: #### 2 4323-8, [id number] #### [facility] CLIA [id number] [address] [place] [address] [place] AST [Catalytic activity/Vol] 30 U/L Normal 14-40 [facility] Comment on above: Order Comment: Speci men Type: BLOOD SPECIMEN Ordering Facility: [facility] Address: [address] [place] [address] Performed By: #### 2 4323-8, [id number] #### [facility] CLIA [id number] [address] [place] [address] [place] Bilirubin [Mass/Vol] 0.4 mg/dL Normal 0.2-1.3 [facility] Comment on above: Order Comment: Speci men Type: BLOOD SPECIMEN Ordering Facility: [facility] Address: [address] [place] [address] Performed By: #### 2 4323-8, [id number] #### [facility] CLIA [id number] [address] [place] [address] [place] Calcium [Mass/Vol] 9.8 mg/dL Normal 8.5-10.2 [facility] Comment on above: Order Comment: Speci men Type: BLOOD SPECIMEN Ordering Facility: [facility] Address: [address] [place] [address] Performed By: #### 2 4323-8, [id number] #### [facility] CLIA [id number] [address] [place] [address] [place] Chloride [Moles/Vol] 106 mmol/L High 97-105 [facility] Comment on above: Order Comment: Speci men Type: BLOOD SPECIMEN Ordering Facility: [facility] Address: [address] [place] [address] Performed By: #### 2 4323-8, [id number] #### [facility] CLIA [id number] [address] [place] [address] [place] CO2 [Moles/Vol] 23 mmol/L Normal 22-30 [facility] Comment on above: Order Comment: Speci men Type: BLOOD SPECIMEN Ordering Facility: [facility] Address: [address] [place] [address] Performed By: #### 2 4323-8, [id number] #### [facility] CLIA [id number] [address] [place] [address] [place] Creatinine [Mass/Vol] 0.86 mg/dL Normal 0.73-1.22 [facility] Comment on above: Order Comment: Speci men Type: BLOOD SPECIMEN Ordering Facility: [facility] Address: [address] [place] [address] Performed By: #### 2 4323-8, [id number] #### [facility] CLIA [id number] [address] [place] [address] [place] Creatinine and Glomerular filtration rate.predicted panel (S/P/Bld) 105 mL/min/1.73m??? Normal >=60 [facility] Comment on above: Order Comment: Rose men Type: BLOOD SPECIMEN Ordering Facility: [facility] Address: [address] [place] [address] Result Comment: Elise mated Glomerular Filtration Rate [...] actual GFR. Performed By: #### 2 4323-8, [id number] #### [facility] CLIA [id number] [address] [place] [address] [place] Glucose [Mass/Vol] 153 mg/dL High 74-99 [facility] Comment on above: Order Comment: Speci men Type: BLOOD SPECIMEN Ordering Facility: [facility] Address: [address] [place] [address] Result Comment: The [place] [employer] (ADA) provides guidance for cutoff [...] Standards of Medical Care in Diabetes 2016, [place] [employer]. Diabetes Care. 2016.39(Suppl 1). Performed By: #### 2 4323-8, [id number] #### [facility] CLIA [id number] [address] [place] [address] [place] Potassium [Moles/Vol] 3.8 mmol/L Normal 3.7-5.1 [facility] Comment on above: Order Comment: Speci men Type: BLOOD SPECIMEN Ordering Facility: [facility] Address: [address] [place] [address] Performed By: #### 2 4323-8, [id number] #### [facility] CLIA [id number] [address] [place] [address] [place] Protein [Mass/Vol] 7.5 g/dL Normal 6.3-8.0 [facility] Comment on above: Order Comment: Rose whyte Type: BLOOD SPECIMEN Ordering Facility: [facility] Address: [address] [place] [address] Performed By: #### 2 4323-8, [id number] #### [facility] CLIA [id number] [address] [address] [place] Sodium [Moles/Vol] 141 mmol/L Normal 136-144 [facility] Comment on above: Order Comment: Patricki men Type: BLOOD SPECIMEN Ordering Facility: [facility] Address: [address] [place] [address] Performed By: #### 2 4323-8, [id number] #### [facility] CLIA [id number] [address] [place] [address] [place] Urea nitrogen [Mass/Vol] 11 mg/dL Normal 9-24 [facility] Comment on above: Order Comment: Speci men Type: BLOOD SPECIMEN Ordering Facility: [facility] Address: [address] [place] [address] Performed By: #### 2 4323-8, [id number] #### [facility] CLIA [id number] [address] [place] ECG COMPLETEon 06-25-2023 ECG COMPLETE Ventricular Rate : 81 BPM Atrial Rate : 81 BPM P-R Interval : 150 ms QRS Duration : 94 ms Q-T Interval : 372 ms QTC Calculation(Bazett) : 432 ms Calculated P Mendon : 44 degrees Calculated R Mendon : 17 degrees Calculated T Mendon : 20 degrees NORMAL SINUS RHYTHM NORMAL ECG 2352 Confirmed by MD REID JAMES ([id number]), technical writer and editor KYLE DIAZ ([id number]) on 06/25/2023 1:14:57 PM NAME : DALE YOUSIF PID : [id number] : 1970 Gender : Male Race : ORD : [id number] Procedure Date : Jun 24 2023 23:50:04 Edit Date : Jun 25 2023 13:14:59 Diagnosis: NORMAL SINUS RHYTHM NORMAL ECG 2352 Confirmed by MD REID JAMES ([id number]), technical writer and editor KYLE DIAZ ([id number]) on 06/25/2023 1:14:57 PM Test Reason : Chest Pain Location : 2 : EDNS [id number] Overread By : MD REID JAMES Edited By : KYLE DIAZ Referred By : , Acquired by : Gricelda heard [facility] ED NOTEon 06-25-2023 ED NOTE HNO ID: [id number] Author: Priti Temple RN Service: ? Author Type: Registered Nurse Type: ED Notes Filed: 06/25/2023 2:25 AM Note Text: AVS printed and reviewed with patient. follow up instructions reviewed, patient verbalized understanding and was discharged in stable condition. Normal [facility] ED NOTE HNO ID: [id number] Author: Shan Lee RN Service: ? Author Type: Registered Nurse Type: ED Notes Filed: 06/24/2023 10:11 PM Note Text: Bed: E12-18 Expected date: Expected time: Means of arrival: Comments: Normal [facility] ED PROV NOTEon 06-25-2023 ED PROV NOTE HNO ID: [id number] Author: Destiney Winters MD Service: Emergency Medicine Author Type: Physician Type: ED Provider Notes Filed: 06/27/2023 12:29 AM Note Text: ED Provider Note Patient Name: Dale Yousif : 1970 SERVICE DATE: 06/24/23 History Patient presents with: Dizziness: Patient was at the [employer] where he experienced a near syncopal episode, [...] as of 06/25/23 0614 Juan Hoover's Documentation [facility] Jun 25, 2023 0117 HIGH SENSITIVITY TROPONIN T (SECOND): TONY High Sensitivity 11 Negative Others' Documentation [facility] Jun 25, 2023 0000 EKG: Normal sinus rhythm at 81 bpm. QTc 432. No prior for comparison. No STEMI. [HJ] 0051 53-year-old male with a lightheaded episode at a [employer]. Patient was found to be markedly hypertensive. [...] negative. Pre-syncopa (more content not included)... Normal [facility] HIGH SENSITIVITY TROPONIN T (INITIAL)on 06-25-2023 Troponin T.cardiac High sensitivity method [Mass/Vol] 11 ng/L Normal <12 [facility] Comment on above: Order Comment: Rose whyte Type: BLOOD SPECIMEN Ordering Facility: [facility] Address: [address] [place] [address] Result Comment: When assessing risk for acute [...] day MACE. Performed By: #### 2 4323-8, [id number] #### [facility] CLIA [id number] [address] [place] [address] [place] HIGH SENSITIVITY TROPONIN T (SECOND)on 06-25-2023 Troponin T.cardiac High sensitivity method [Mass/Vol] 11 ng/L Normal <12 [facility] Comment on above: Order Comment: Rose whyte Type: BLOOD SPECIMEN Ordering Facility: [facility] Address: [address] [place] [address] Result Comment: When assessing risk for acute [...] 30 day MACE. Performed By: #### L [id number] #### [facility] CLIA [id number] [address] [place] [address] [place] TOX SCREEN ROUT URon 023 Amphetamines Confirm (U) [Mass/Vol] Negative Normal Negative [facility] Comment on above: Order Comment: Speci men Type: URINE SPECIMEN Ordering Facility: [facility] Address: [address] [place] [address] Result Comment: Cuto ff threshold at 1000 ng/mL. Performed By: #### U TOX2 #### [facility] CLIA [id number] [address] [place] [address] [place] BARBITURATES, URINE Negative Normal Negative [facility] Comment on above: Order Comment: Speci men Type: URINE SPECIMEN Ordering Facility: [facility] Address: [address] [place] [address] Result Comment: Cuto ff threshold at 200 ng/mL. Performed By: #### U TOX2 #### [facility] CLIA [id number] [address] [place] [address] [place]ENZ[place], UR Negative Normal Negative [facility] Comment on above: Order Comment: Speci men Type: URINE SPECIMEN Ordering Facility: [facility] Address: [address] [place] [address] Result Comment: Cuto ff threshold at 200 ng/mL. Performed By: #### U TOX2 #### [facility] CLIA [id number] [address] [place] [address] [place] Cannabinoids Screen Ql (U) Negative Normal Negative [facility] Comment on above: Order Comment: Speci men Type: URINE SPECIMEN Ordering Facility: [facility] Address: [address] [place] [address] Result Comment: Cuto ff threshold at 50 ng/mL. Performed By: #### U TOX2 #### [facility] CLIA [id number] [address] [place] [address] [place] Cocaine Ql (U) Negative Normal Negative [facility] Comment on above: Order Comment: Speci men Type: URINE SPECIMEN Ordering Facility: [facility] Address: [address] [place] [address] Result Comment: Cuto ff threshold at 300 ng/mL. Performed By: #### U TOX2 #### [facility] CLIA [id number] [address] [place] [address] [place] Ethanol (U) [Mass/Vol] <11 Normal <11 [facility] Comment on above: Order Comment: Speci men Type: URINE SPECIMEN Ordering Facility: [facility] Address: [address] [place] [address] Performed By: #### U TOX2 #### [facility] CLIA [id number] [facility] [place] [address] [place] Opiates Screen Ql (U) Negative Normal Negative [facility] Comment on above: Order Comment: Speci men Type: URINE SPECIMEN Ordering Facility: [facility] Address: [address] [place] [address] Result Comment: Cuto ff threshold at 300 ng/mL. Performed By: #### U TOX2 #### [facility] CLIA [id number] [address] [place] [address] [place] oxyCODONE cutoff Screen (U) [Mass/Vol] Negative Normal Negative [facility] Comment on above: Order Comment: Speci men Type: URINE SPECIMEN Ordering Facility: [facility] Address: [address] [place] [address] Result Comment: Cuto ff threshold at 100 ng/mL. Performed By: #### U TOX2 #### [facility] CLIA [id number] [address] [place] [address] [place] Phencyclidine Ql (U) Negative Normal Negative [facility] Comment on above: Order Comment: Speci men Type: URINE SPECIMEN Ordering Facility: [facility] Address: [address] [place] [address] Result Comment: Cuto ff threshold at 25 ng/mL. Performed By: #### U TOX2 #### [facility] CLIA [id number] [facility] [place] [address] [place] Urinalysis complete panel (U )on 06-25-2023 Bacteria LM.HPF (Urine sed) [#/Area] Negative Normal Negative [facility] Comment on above: Order Comment: Speci men Type: URINE SPECIMEN Ordering Facility: [facility] Address: [address] [place] [address] Performed By: #### 2 4356-8 #### [facility] CLIA [id number] [address] [place] [address] [place] Bilirubin Ql (U) Negative Normal Negative [facility] Comment on above: Order Comment: Speci men Type: URINE SPECIMEN Ordering Facility: [facility] Address: [address] [place] [address] Performed By: #### 2 4356-8 #### [facility] CLIA [id number] [address] [place] [address] [place] Clarity (Unsp spec) Clear Normal Clear [facility] Comment on above: Order Comment: Speci men Type: URINE SPECIMEN Ordering Facility: [facility] Address: [address] [place] [address] Performed By: #### 2 4356-8 #### [facility] CLIA [id number] [address] [place] [address] [place] Color (U) Yellow Normal Yellow [facility] Comment on above: Order Comment: Speci men Type: URINE SPECIMEN Ordering Facility: [facility] Address: [address] [place] [address] Performed By: #### 2 4356-8 #### [facility] CLIA [id number] [address] [place] [address] [place] Epithelial cells LM.HPF (Urine sed) [#/Area] None Seen Normal [facility] Comment on above: Order Comment: Speci men Type: URINE SPECIMEN Ordering Facility: [facility] Address: [address] [place] [address] Performed By: #### 2 4356-8 #### [facility] CLIA [id number] [address] [place] [address] [place] Glucose Test strip (U) [Mass/Vol] Negative Normal Negative [facility] Comment on above: Order Comment: Speci men Type: URINE SPECIMEN Ordering Facility: [facility] Address: [address] [place] [address] Performed By: #### 2 4356-8 #### [facility] CLIA [id number] [address] [place] [address] [place] Hemoglobin Ql (U) Negative Normal Negative [facility] Comment on above: Order Comment: Speci men Type: URINE SPECIMEN Ordering Facility: [facility] Address: [address] [place] [address] Performed By: #### 2 4356-8 #### [facility] CLIA [id number] [address] [place] [address] [place] Hyaline casts (Urine sed) [#/Area] 0 /[LPF] Normal 0 /LPF [facility] Comment on above: Order Comment: Speci men Type: URINE SPECIMEN Ordering Facility: [facility] Address: [address] [place] [address] Performed By: #### 2 4356-8 #### [facility] CLIA [id number] [address] [place] [address] [place] Ketones Ql (U) Trace Abnormal Negative [facility] Comment on above: Order Comment: Speci men Type: URINE SPECIMEN Ordering Facility: [facility] Address: [address] [place] [address] Performed By: #### 2 4356-8 #### [facility] CLIA [id number] [address] [place] [address] [place] Leukocyte esterase Test strip Ql (U) Negative Normal Negative [facility] Comment on above: Order Comment: Speci men Type: URINE SPECIMEN Ordering Facility: [facility] Address: [address] [place] [address] Performed By: #### 2 4356-8 #### [facility] CLIA [id number] [address] [place] [address] [place] Nitrite Ql (U) Negative Normal Negative [facility] Comment on above: Order Comment: Speci men Type: URINE SPECIMEN Ordering Facility: [facility] Address: [address] [place] [address] Performed By: #### 2 4356-8 #### [facility] CLIA [id number] [address] [place] [address] [place] pH (U) 6.5 [pH] Normal <8.5 [facility] Comment on above: Order Comment: Speci men Type: URINE SPECIMEN Ordering Facility: [facility] Address: [address] [place] [address] Performed By: #### 2 4356-8 #### [facility] CLIA [id number] [address] [place] [address] [place] Protein (U) [Mass/Vol] Negative Normal Negative [facility] Comment on above: Order Comment: Speci men Type: URINE SPECIMEN Ordering Facility: [facility] Address: [address] [place] [address] Performed By: #### 2 4356-8 #### [facility] CLIA [id number] [address] [place] [address] [place] RBC LM.HPF (Urine sed) [#/Area] 0-2 /HPF Normal 0-2 /HPF [facility] Comment on above: Order Comment: Speci men Type: URINE SPECIMEN Ordering Facility: [facility] Address: [address] [place], [place] [id number] Performed By: #### 2 4356-8 #### [facility] CLIA [id number] [address] [place] [address] [place] Specific gravity (U) [Rel density] 1.009 Normal 1.005-1.030 [facility] Comment on above: Order Comment: Speci men Type: URINE SPECIMEN Ordering Facility: [facility] Address: [address] [place] [address] Performed By: #### 2 4356-8 #### [facility] CLIA [id number] [address] [place] [address] [place] Urobilinogen Ql (U) 0.2 EU/dL Normal 0.2-1.0 EU/dL [facility] Comment on above: Order Comment: Speci men Type: URINE SPECIMEN Ordering Facility: [facility] Address: [address] [place] [address] Performed By: #### 2 4356-8 #### [facility] CLIA [id number] [address] [place] [address] [place] WBC LM.HPF (Urine sed) [#/Area] 0-5 /HPF Normal 0-5 /HPF [facility] Comment on above: Order Comment: Speci men Type: URINE SPECIMEN Ordering Facility: [facility] Address: [address] [place] [address] Performed By: #### 2 4356-8 #### [facility] CLIA [id number] [address] [place] [address] [place] Basophil percentageOrdered B y: Dat Oconnor on 06-01-2023 Bilirubin [Mass/Vol] 0.50 mg/dL 0.20-1.00 [facility] Comment on above: For patients on eltr ombopag therapy, use of Dimension [place] TBIL is not recommended. Chloride [Moles/Vol] 108 mmol/L 98-107 [facility] Cholesterol [Mass/Vol] 230 mg/dL <200 [facility] Comment on above: <200 mg/dL Desirable 200-240 mg/dL Borderline >240 mg/dL High Risk Glucose [Mass/Vol] 134 mg/dL 74-106 [facility] Comment on above: Fasting Glucose resu lt greater than or equal to 126 mg/dL suggests DIABETES MELLITUS per A.D.A. criteria. Potassium [Moles/Vol] 4.2 mmol/L 3.5-5.1 [facility] Protein [Mass/Vol] 7.2 g/dL 6.4-8.2 [facility] Sodium [Moles/Vol] 141 mmol/L 136-145 [facility] Triglyceride [Mass/Vol] 584 mg/dL <199 [facility] Comment on above: The drugs N-Acetylcy steine [...] 06-01-2023 ALP [Catalytic activity/Vol] 69 U/L 45-117 [facility] ALT [Catalytic activity/Vol] 43 U/L 16-61 [facility] CO2 [Moles/Vol] 25.0 mmol/L 21.0-32.0 [facility] Globulin (S) [Mass/Vol] 3.7 g/dL 2.2-4.2 [facility] Urea nitrogen/Creatinine [Mass ratio] 13.6 mg/mg 10-20 [facility] No Panel InformationOrdered By: Dat Oconnor on 06-01-2023 Estimated GFR (MDRD) Amer 98 mL/min >60 [facility] Comment on above: GFR Calc Estimated GFR (MDRD) Non-Af Amer 81 mL/min >60 [facility] Comment on above: Non- GFR Calc Prostate Specific Antigen Screen 0.63 ng/mL 0.00-4.00 [facility] Comment on above: This test was perfor med using the TPSA assay method for the[employer] [place] chemistry system. Values obtained with differentassay methods cannot be used interchangably.When changing PSA assays in the course of monitoring apatient, additional sequential testing should be carriedout to confirm baseline values. Serum or plasma albumin dejan urement (mass/volume)Ordered By: Dat Oconnor on 06-01-2023 Albumin [Mass/Vol] 3.5 g/dL 3.2-5.0 [facility] Serum or plasma albumin/glob ulin mass ratioOrdered By: Dat Oconnor on 06-01-2023 Albumin/Globulin [Mass ratio] 0.9 {ratio} 0.9-2.4 [facility] Serum or plasma calcium dejan urement (mass/volume)Ordered By: Dat Oconnor on 06-01-2023 Calcium [Mass/Vol] 9.2 mg/dL 8.5-10.1 [facility] Serum or plasma cholesterol in HDL measurement (mass/volume)Ordered By: Dat Oconnor on 06-01-2023 Cholesterol in HDL [Mass/Vol] 34 mg/dL >40 [facility] Comment on above: The drugs N-Acetylcy steine and Metamizole may falsely depress this assay. Reference Range HDL <40 mg/dL Low HDL Cholesterol HDL >or= 60 mg/dL High HDL Cholesterol Serum or plasma cholesterol in VLDL measurement (mass/volume)Ordered By: Dat Oconnor on 06-01-2023 Cholesterol in VLDL [Mass/Vol] [facility] Comment on above: Test not performed Serum or plasma creatinine m easurement (mass/volume)Ordered By: Dat Oconnor on 06-01-2023 Creatinine [Mass/Vol] 1.03 mg/dL 0.70-1.30 [facility] Comment on above: The validity of the calculated GFR & GFRAA in patients over 70 years has not been determined. Clinical correlation is essential. Serum or plasma low density lipoprotein (LDL) cholesterol measurement (mass/volume)Ordered By: Dat Oconnor on 06-01-2023 Cholesterol in LDL [Mass/Vol] [facility] Comment on above: Test not performed Serum or plasma urea nitroge n measurement (mass/volume)Ordered By: Dta Oconnor on 06-01-2023 Urea nitrogen [Mass/Vol] 14 mg/dL 7-18 [facility] Thin prep Papanicolaou smear with manual screeningOrdered By: Dat Oconnor on 06-01-2023 Thin prep Papanicolaou smear with manual screening 9 U/L 15-37 [facility] Thin prep Papanicolaou smear with manual screening 8 5-15 [facility] Basophil percentageon 2021 Bilirubin [Mass/Vol] 0.70 mg/dL 0.20-1.00 [facility] Work Phone: Comment on above: For patients on eltr ombopag therapy, use of Dimension [place] TBIL is not recommended. Chloride [Moles/Vol] 108 mmol/L 98-107 [facility] Work Phone: Cholesterol [Mass/Vol] 223 mg/dL <200 [facility] Work Phone: Comment on above: <200 mg/dL Desirable 200-240 mg/dL Borderline >240 mg/dL High Risk Glucose [Mass/Vol] 127 mg/dL 74-106 [facility] Work Phone: Comment on above: Fasting Glucose resu lt greater than or equal to 126 mg/dL suggests DIABETES MELLITUS per A.D.A. criteria. Potassium [Moles/Vol] 4.4 mmol/L 3.5-5.1 [facility] Work Phone: Protein [Mass/Vol] 7.4 g/dL 6.4-8.2 [facility] Work Phone: Sodium [Moles/Vol] 144 mmol/L 136-145 [facility] Work Phone: Triglyceride [Mass/Vol] 325 mg/dL <199 [facility] Work Phone: Comment on above: The drugs N-Acetylcy steine and Metamizole may falsely depress this assay.Serum Triglycerides Reference Interval Normal <150 mg/dL Borderline high 150 - 199 mg/dL High 200 - 499 mg/dL Very High > or = 500 mg/dL Laboratory - Chemistry and C hemistry - challengeon 07-30-2022 ALP [Catalytic activity/Vol] 67 U/L 45-117 [facility] Work Phone: ALT [Catalytic activity/Vol] 51 U/L 16-61 [facility] Work Phone: CO2 [Moles/Vol] 28.0 mmol/L 21.0-32.0 [facility] Work Phone: Globulin (S) [Mass/Vol] 3.2 g/dL 2.2-4.2 [facility] Work Phone: Urea nitrogen/Creatinine [Mass ratio] 15.2 mg/mg 10-20 [facility] Work Phone: No Panel Informationon 07-30 Estimated GFR (MDRD) Amer 96 mL/min >60 [facility] Work Phone: Comment on above: GFR Calc Estimated GFR (MDRD) Non-Af Amer 79 mL/min >60 [facility] Work Phone: Comment on above: Non- GFR Calc Prostate Specific Antigen Screen 0.94 ng/mL 0.00-4.00 [facility] Work Phone: Comment on above: This test was perfor med using the TPSA assay method for [employer] chemistry system. Values obtained with differentassay methods cannot be used interchangably.When changing PSA assays in the course of monitoring apatient, additional sequential testing should be carriedout to confirm baseline values. Serum or plasma albumin dejan urement (mass/volume)on 07-30-2022 Albumin [Mass/Vol] 4.2 g/dL 3.2-5.0 [facility] Work Phone: Serum or plasma albumin/glob ulin mass ratioon 07-30-2022 Albumin/Globulin [Mass ratio] 1.3 {ratio} 0.9-2.4 [facility] Work Phone: Serum or plasma calcium dejan urement (mass/volume)on 07-30-2022 Calcium [Mass/Vol] 9.4 mg/dL 8.5-10.1 [facility] Work Phone: Serum or plasma cholesterol in HDL measurement (mass/volume)on 07-30-2022 Cholesterol in HDL [Mass/Vol] 34 mg/dL >40 [facility] Work Phone: Comment on above: The drugs N-Acetylcy steine and Metamizole may falsely depress this assay. Reference Range HDL <40 mg/dL Low HDL Cholesterol HDL >or= 60 mg/dL High HDL Cholesterol Serum or plasma cholesterol in VLDL measurement (mass/volume)on 07-30-2022 Cholesterol in VLDL [Mass/Vol] 65 mg/dL 5-40 [facility] Work Phone: Serum or plasma creatinine m easurement (mass/volume)on 07-30-2022 Creatinine [Mass/Vol] 1.05 mg/dL 0.70-1.30 [facility] Work Phone: Comment on above: The validity of the calculated GFR & GFRAA in patients over 70 years has not been determined. Clinical correlation is essential. Serum or plasma low density lipoprotein (LDL) cholesterol measurement (mass/volume)on 07-30-2022 Cholesterol in LDL [Mass/Vol] 124 mg/dL 0-130 [facility] Work Phone: Serum or plasma urea nitroge n measurement (mass/volume)on 07-30-2022 Urea nitrogen [Mass/Vol] 16 mg/dL 7-18 [facility] Work Phone: Thin prep Papanicolaou smear with manual screeningon 07-30-2022 Thin prep Papanicolaou smear with manual screening 34 U/L 15-37 [facility] Work Phone: Thin prep Papanicolaou smear with manual screening 8 5-15 [facility] Work Phone: COVID-19, MOLECULARon 2019 SARS-COV-2 ([employer] EMRRIN) Detected Abnormal Not Detected O [facility] Comment on above: Result Comment: This test was performed under the FDA's Emergency Use Authorization (EUA). Testing was performed using the Simplexa SARS-CoV-2 assay ([employer]) on the [employer] platform. This test has not been approved for use in asymptomatic patients and its performance in this patient population has not been evaluated. Negative results do not rule out the presence of SARS-CoV-2/COVID-19. Fact sheets for this EUA can be found at the following links: For Healthcare Providers: https://www.fda.gov/media/453007/download For Patients: https://www.fda.gov/media/818694/download Performed By: #### L [id number] #### [facility] [address] [place] [address] Jaun Yee M.D. [id number] Vital Signs Date Time Vital Sign Value Performing Clinician Facility 08-19-2023 14:20-0500 Body height 177.[address] Dat Oconnor Work Phone: [facility] 08-19-2023 14:20-0500 Body mass index (BMI) [Ratio] 31.7 kg/m2 Dr. Dat Oconnor Work Phone: [facility] 08-19-2023 14:20-0500 Body weight 100.[address] Dat Oconnor Work Phone: [facility] 08-19-2023 14:20-0500 Diastolic blood pressure 95 mm[Hg] Dr. Dat Oconnor Work Phone: [facility] 08-19-2023 14:20-0500 Heart rate 86 /min Dr. Dat Oconnor Work Phone: [facility] 08-19-2023 14:20-0500 Respiratory rate 16 /min Dr. Dat Oconnor Work Phone: [facility] 08-19-2023 14:20-0500 Systolic blood pressure 157 mm[Hg] Dr. Dat Oconnor Work Phone: [facility] 07-08-2023 21:38-0500 Diastolic blood pressure 98 mm[Hg] [facility] 07-08-2023 21:38-0500 Systolic blood pressure 157 mm[Hg] [facility] 07-08-2023 19:30-0500 Body height 177.8 cm [facility] 07-08-2023 19:30-0500 Body mass index (BMI) [Ratio] 31.6 kg/m2 [facility] 07-08-2023 19:30-0500 Body temperature 96.5 [degF] [facility] 07-08-2023 19:30-0500 Body weight 100.1 kg [facility] 07-08-2023 19:30-0500 Heart rate 75 /min [facility] 07-08-2023 19:30-0500 Respiratory rate 18 /min [facility] 07-08-2023 19:30-0500 SaO2% (BldA) [Mass fraction] 100 % [facility] 04-01-2022 08:25-0400 Diastolic blood pressure 77 mm[Hg] Dr. Dat Oconnor Work Phone: [facility] Work Phone: 04-01-2022 08:25-0400 Heart rate 69 /min Dr. Dat Oconnor Work Phone: [facility] Work Phone: 04-01-2022 08:25-0400 Respiratory rate 16 /min Dr. Dat Oconnor Work Phone: [facility] Work Phone: 04-01-2022 08:25-0400 SaO2% (BldA) [Mass fraction] 96 % Dr. Dat Oconnor Work Phone: [facility] Work Phone: 04-01-2022 08:25-0400 Systolic blood pressure 113 mm[Hg] Dr. Dat Oconnor Work Phone: [facility] Work Phone: 04-01-2022 08:04-0400 Body temperature 98.4 [degF] Dr. Dat Oconnor Work Phone: [facility] Work Phone: 04-01-2022 06:56-0400 Body height 177.[address] Dat Oconnor Work Phone: [facility] Work Phone: 04-01-2022 06:56-0400 Body mass index (BMI) [Ratio] 30.9 kg/m2 Dr. Dat Oconnor Work Phone: [facility] Work Phone: 04-01-2022 06:56-0400 Body weight [address] Dat Oconnor Work Phone: [facility] Work Phone: 02-24-2022 15:14-0400 Body mass index (BMI) [Ratio] 29.9 kg/m2 Dr. Dat Oconnor Work Phone: [facility] Work Phone: 02-24-2022 15:14-0400 Body weight 97.[address] Dat Oconnor Work Phone: [facility] Work Phone: 07-04-2020 11:11-0500 BP Diastolic 100 mm[Hg] [facility] Comment on above: Recheck [facility] 07-04-2020 11:11-0500 BP Systolic 157 mm[Hg] [facility] Comment on above: Recheck [facility] 07-04-2020 10:38-0500 BMI (Body Mass Index) 28.48 kg/m2 Stephen [facility] 07-04-2020 10:38-0500 Body Temperature 98.29 [degF] Stephen [facility] 07-04-2020 10:38-0500 Body weight 95.25 kg Stephen [facility] 07-04-2020 10:38-0500 Height 182.9 cm Stephen [facility] 07-04-2020 10:38-0500 Pulse (Heart Rate) 98 /min Stephen [facility] 07-04-2020 10:38-0500 Pulse Oximetry 98 % Stephen [facility] 07-04-2020 10:38-0500 Respiratory Rate 12 /min Stephen Cosme [facility] 10-27-2018 11:41-0400 BMI (Body Mass Index) 30.13 kg/m2 Rajwinder Portillo [facility] 10-27-2018 11:41-0400 Body Temperature 97.59 [degF] Rajwinder Portillo [facility] 10-27-2018 11:41-0400 BP Diastolic 82 mm[Hg] Rajwinder Portillo [facility] 10-27-2018 11:41-0400 BP Systolic 134 mm[Hg] Rajwinder Portillo [facility] 10-27-2018 11:41-0400 Height 177.8 cm Rajwinder Portillo [facility] 10-27-2018 11:41-0400 Pulse (Heart Rate) 78 /min Rajwinder Portillo [facility] 10-27-2018 11:41-0400 Pulse Oximetry 98 % Rajwinder Portillo [facility] 10-27-2018 11:41-0400 Respiratory Rate 18 /min Rajwinder Portillo [facility] 10-27-2018 11:41-0400 Weight 95.25 kg Rajwinder Portillo [facility] Encounters Encounter Date Encounter Type Care Provider Facility Start: 03-20-2025 ambulatory Navneet Oconnor Faci lity:[facility] Start: 2025 ambulatory Navneet Wong lity:[facility] Start: 09-28-2024 End: 09-28-2024 ambulatory Navneet Oconnor Facility:[facility] Start: 08-29-2024 End: 08-29-2024 ambulatory Navneet Oconnor Facility:[facility] Start: 07-28-2024 End: 07-28-2024 ambulatory Navneet Oconnor Facility:[facility] Start: 06-23-2024 End: 06-23-2024 ambulatory Navneet Oconnor Facility:[facility] Start: 06-15-2024 End: 06-15-2024 ambulatory Navneet Oconnor Facility:[facility] Start: 05-31-2024 End: 05-31-2024 Emergency department patient visit Navneet Oconnor Facility:[facility] Start: 05-03-2024 End: 05-03-2024 ambulatory Navneet Oconnor Facility:[facility] Start: 12-22-2023 End: 12-22-[address] Navneet Oconnor Work Phone: [facility] Work Phone: Start: 12-22-2023 End: 12-22-[address] Navneet Oconnor Work Phone: [facility] [facility] Work Phone: Start: 10-28-2023 End: 10-28-[address] Dat Oconnor Work Phone: [facility] Work Phone: Start: 10-28-2023 End: 10-28-[address] Dat Oconnor Work Phone: [facility] Start: 10-13-2023 Non-patient / Non-visit Dr. Dipika Oconnor Work Phone: [facility] Start: 10-13-2023 End: 10-13-[address] Dat Oconnor Work Phone: [facility] Work Phone: Start: 10-13-2023 End: 10-13-[address] Dat Oconnor Work Phone: [facility] Work Phone: Start: 08-19-2023 End: 08-19-[address] Dat Oconnor Work Phone: [facility] Work Phone: Start: 07-08-2023 End: 07-08-2023 Emergency department patient visit [facility]-Emergency Department Work Phone: Start: 06-25-2023 End: 06-25-2023 Emergency department patient visit NAVNEET OCONNOR Facility:[facility] Start: 06-01-2023 End: 06-01-2023 ambulatory [facility] Work Phone: Start: 06-01-2023 End: 06-01-2023 [facility] Start: 04-01-2023 End: 04-01-2023 ambulatory [facility] Work Phone: Start: 04-01-2023 End: 04-01-2023 Patient encounter procedure [facility]-Radiology, [place] Work Phone: Start: 07-30-2022 End: 07-30-2022 ambulatory [facility] Work Phone: Start: 07-30-2022 End: 07-30-2022 Patient [facility] Start: 04-01-2022 Non-patient / Non-visit Dr. Dipika Oconnor Work Phone: [facility] Start: 04-01-2022 End: 04-01-2022 Admission to same day surgery center Dr. Dat Oconnor Work Phone: [facility]-Endoscopy Start: 02-24-2022 Non-patient / Non-visit Dr. Dipika Oconnor Work Phone: [facility] Start: 11-30-2020 End: 11-30-2020 ambulatory DALI RIVAS GARVIN [facility] Start: 11-08-2020 End: 11-08-2020 ambulatory JYOTI MCGOWAN [facility] Start: 07-04-2020 End: 07-04-2020 Patient encounter procedure NAVNEET OCONNOR [facility] Start: 07-04-2020 End: 07-04-2020 Office outpatient visit 15 minutes Stephen Cosme Work Phone: [facility] Comment on above: Suspected Covid-19 V irus Infection (Primary Dx) Start: 10-27-2018 End: 10-27-2018 Office outpatient visit 15 minutes Rajwinder Portillo Work Phone: [facility] Comment on above: Acute conjunctivitis of both eyes, unspecified acute conjunctivitis type (Primary Dx) Procedures Date Procedure Procedure Detail Performing Clinician Start: 04-01-2023 Plain X-ray of toe Start: 04-01-[address] Alonzo Oconnor Work Phone: Plan of Treatment Date Care Activity Detail Author Start: 08-11-2029 Tetanus vaccination Tetanus: Every 1 0yrs [facility] Start: 07-08-2023 [facility] Start: 04-01-2022 Patient discharge [facility] Work Phone: Start: 04-17-2018 Influenza vaccinatio n given SEQUENTIAL INFLUENZA VACCINE (#1) [facility] Start: 1990 Hepatitis C antibody , confirmatory test Hepatitis C Screening [facility] Start: 1987 HIV screening HIV Screening [facility] Start: 1984 Adolescent depressio n screening assessment Depression Screening (PHQ9) [facility] Start: 1975 History and physical examination, annual for health maintenance Wellness Visit [facility] Start: 1972 Prostate specific an tigen measurement PSA Level [facility] Start: 1972 Tetanus vaccination TETANUS EVERY 10 YR [facility] Aldosterone [Mass/vo lume] in Serum or Plasma [facility] Catecholamines [Moles/volume] in Plasma [facility] Colonoscopy [facility] Work Phone: COVID-19, Molecular COVID-19, Mo lecular Microbiology Routine Suspected Covid-19 Virus Infection Ordered: 07/04/2020 [facility] Comment on above: Ordered: 07/04/2020 Covid-19/Influenza O rder Algorithm Covid-19/Influenza Order Algorithm Microbiology Routine Suspected Covid-19 Virus Infection Ordered: 07/04/2020 [facility] Comment on above: Ordered: 07/04/2020 Patient Education Hypertension D c ED Anxiety Reaction [facility] Work Phone: Patient referral [facility] Work Phone: Renin [Enzymatic activity/volume] in Plasma [facility] Payers Date Payer Category Payer Self-pay [id number] 2024 Unknown [id number] 2017 Unknown MAGALI KISER [employer] [facility] [employer] [employer] xxxxxxxxxxxxxxx 2017-Present [id number] 2017 Unknown ANTHEM BCBS [employer] [facility] [employer] [id number] 2017-Present [id number] 2017 Unknown [id number] 2007 Unknown [id number] 1972 Unknown [id number] 1972 Unknown [id number] 1972 Unknown [id number] Unknown [id number] Unknown [id number] Unknown [id number] Unknown [id number] Unknown [id number] Unknown [id number] Unknown [id number] Unknown [id number] Unknown [id number] Unknown [id number] Social History Date Type Detail Facility Start: 10-27-2018 End: 07-04-2020 Tobacco smoking status NHIS Never smoker [facility] Start: 10-27-2018 [facility] Start: 07-04-2020 Tobacco use and exposure Never used [facility] Start: 07-04-2020 Alcohol intake Current drinke r of alcohol (finding) [facility] Exposure to SARS-CoV -2 (event) Not sure [facility] Start: 04-01-2022 End: 08-19-2023 Tobacco smoking status MOIS Unknown if ever smoked [facility] Start: 1970 Sex Assigned At Male [facility] Goals Date Patient Goal Desired Activity /State Mental Status Date Assessment Result Facility 07-08-2023 Cognitive function Voice/Name [facility] Work Phone: 04-01-2022 Cognitive function Level Of Consciousness Sedated [facility] Work Phone: 04-01-2022 Cognitive function Voice/Name [facility] Work Phone: Evaluation note Note Date & Type Note Facility Evaluation note Diagnosis Onset Date Encounter for screening for malignant neoplasm of colon acute [facility] Work Phone: Evaluation note Note Date & Type Note Facility Evaluation note No assessment information availa ble [facility] Work Phone: Evaluation note Note Date & Type Note Facility Evaluation note Diagnosis Onset Date Hypertension chronic [facility] Work Phone: Instructions * Patient Instructions* Rajwinder Portillo, [facility] - 10/27/2018 12:00 PM EDT [place]: Care [...] Log into your personal health record on [email or web address] and enter Y392 in the Education box to learn more about Brigette: Care Instructions. Current as of: May 09, 2018 Content Version: 11.9 5649-9655 Obvious. Care instructions adapted under license by your healthcare professional. If you have questions about a medical condition or this instruction, always ask your healthcare professional. Obvious disclaims any warranty or liability for your [...] your results. If you have an active [employer] account, and your COVID test is negative (not detected), then you will be notified through your [employer] account. You should call the urgent care if you have any further questions. If your COVID test is positive (detected), you will receive a phone call to discuss your results and answer any questions you might have at that time. Please make sure [facility] has your updated phone number so we can contact you. [facility] will notify the [place] Department of Health of any positive results [...] and warm water and/or alcohol based hand well driller helper, scrubbing your hands for at least 20 [...] HR Department Other COVID Questions? CDC: https://www.cdc.gov/coronavirus/2019-ncov/index.html [facility] - Website: https://coronavirus.[place].gov/wps/portal/gov/covid-19/home - Hotline: 243-7-UQM-ODH (244-026-3192) [employer]: https://blog.SitScape/series/vrvpa-96-gcvlwfhlhtw-toolkit/ Learning About Coronavirus (COVID-19) Coronavirus (COVID-19): Overview [...] It can cause . This virus spreads gagemm-zt-ymfaoz through droplets from coughing and sneezing. It [...] water aren't available, use an alcohol-based hand well driller helper. Avoid touching your mouth, nose, and eyes. [...] disinfect your home every day. Use household corn sheller and disinfectant wipes or sprays. Take special [...] of: February 24, 2020 Content Version: 12.6 Obvious. Care instructions adapted under license by your healthcare professional. If you have questions about a medical condition or this instruction, always ask your healthcare professional. Obvious disclaims any warranty or liability for your use of this information. Coronavirus (COVID-19): Care Instructions Overview The coronavirus disease (COVID-19) is caused by a virus. Symptoms may include a fever, a cough, andshortness of breath. It mainly spreads pndcot-mq-dkrnrz through droplets from coughing and sneezing. The [...] water aren't available, use an alcohol-based hand well driller helper. Don't share personal household items. These include bedding, towels, cups and glasses, and eating utensils. Wash laundry in the warmest water allowed for the fabric type, and dry it completely. It's okay to wash other people's laundry with yours. Clean and disinfect your home every day. Use household corn sheller and disinfectant wipes or sprays. Take special [...] of: February 24, 2020 Content Version: 12.6 [id number] Obvious. Care instructions adapted under license by your healthcare professional. If you have questions about a medical condition or this instruction, always ask your healthcare professional. Obvious disclaims any warranty or liability for your [...] 10:52 AM EST Patient Name: [facility] Location: [address] [address] Date Of : Date Of Visit: 1970 07/04/2020 MRN# Provider: [id number] Stephen Cosme CNP Chief Complaint Patient presents [...] Wants for peace of mind. Works inside [employer] for outside [employer]. + cases in [employer], does not think that he has been [...] your results. If you have an active [employer] account, and your COVID test is negative (not detected), then you will be notified through your [employer] account. You should call the urgent care if you have any further questions. If your COVID test is positive (detected), you will receive a phone call to discuss your results and answer any questions you might have at that time. Please make sure [facility] has your updated phone number so we can contact you. [facility] will notify the [facility] of any positive results to comply with [...] and warm water and/or alcohol based hand well driller helper, scrubbing your hands for at least 20 [...] HR Department Other COVID Questions? CDC: https://www.cdc.gov/coronavirus/2019-ncov/index.html [facility] - Website: https://coronavirus.[place].gov/wps/portal/gov/covid-19/home - Hotline: 854-3-GNE-OD (161-931-8859) [employer]: https://blog.Sequence Design.Zando/series/soivh-44-hehekonparl-toolkit/ Learning About Coronavirus (COVID-19) Coronavirus (COVID-19): Overview [...] It can cause . This virus spreads fajtrg-zu-dpoize through droplets from coughing and sneezing. It [...] water aren't available, use an alcohol-based hand well driller helper. Avoid touching your mouth, nose, and eyes. [...] disinfect your home every day. Use household corn sheller and disinfectant wipes or sprays. Take special [...] of: February 24, 2020 Content Version: . Obvious. Care instructions adapted under license by your healthcare professional. If you have questions about a medical condition or this instruction, always ask your healthcare professional. Obvious disclaims any warranty or liability for your use of this information. Coronavirus (COVID-19): Care Instructions Overview The coronavirus disease (COVID-19) is caused by a virus. Symptoms may include a fever, a cough, andshortness of breath. It mainly spreads uqmqnr-jw-auzsvh through droplets from coughing and sneezing. The [...] water aren't available, use an alcohol-based hand well driller helper. Don't share personal household items. These include bedding, towels, cups and glasses, and eating utensils. Wash laundry in the warmest water allowed for the fabric type, and dry it completely. It's okay to wash other people's laundry with yours. Clean and disinfect your home every day. Use household corn sheller and disinfectant wipes or sprays. Take special [...] of: February 24, 2020 Content Version: 12.6 Obvious. Care instructions adapted under license by your healthcare professional. If you have questions about a medical condition or this instruction, always ask your healthcare professional. Obvious disclaims any warranty or liability for your use of this information. documented in this encounter Assessments Diagnosis Acute conjunctivitis of both eyes, unspecified acute conjunctivitis type- Primary Diagnosis Suspected Covid-19 Virus Infection- Primary Advance Directives No Advanced Directives Records FoundDocuments on File Type Date Recorded Patient Seam Stayer Expl anation Advance Directives and Living Will Advance Directive Response Recorded Date/ Time Name of Medical Power of Mold Runner Lola March 26, 2022 2:11pm Living Will Yes March 26 2 2:11pm Power of Mold Runner Yes March 26 2 022 2:11pm Advance Directive Response Recorded Date/ Time Living Will Yes March 26 2 1:11pm Power of Mold Runner Yes March 26 2 022 1:11pm Advance Directive Response Recorded Date/ Time Living Will Yes March 26 2 2:11pm Power of Mold Runner Yes March 26 2 022 2:11pm Advance Directive Response Recorded Date/ Time Living Will No July 08 023 8:19pm Power of Mold Runner No July 08, 2023 8:19pm Advance Directive Response Recorded Date/ Time Living Will No July 08, 2 023 9:19pm Power of Mold Runner No July 08, 2023 9:19pm Summary Purpose [...] section and content) DATE CREATED AUTHOR [facility]06/2020 [facility] DATE CREATED AUTHOR AUTHOR'S ORGANIZ ATION 12/04/2020 [facility] DATE CREATED AUTHOR AUTHOR'S ORGANIZ ATION 06/28/2023 [facility] DATE CREATED AUTHOR AUTHOR'S ORGANIZ ATION 03/23/2025 [facility] Goals (unrecognized section and content) Goals may [...] Dat Oconnor MD Primary Care Provider, Atte ohing Provider Active Team Status: Inactive Member Role [...] BE BASED ON THE PRIMARY CLINICAL RECORDS. [employer] provides no warranty or guarantee of the accuracy or completeness of information in this document.
== END | disposition home or self-care (01) ==
LOC: LAB 07:10 → MTLAB 07:37
PROVIDERS: PCP Family Medicine; Referring Provider Family Medicine; Visit Provider Family Medicine
DX: I10 Essential (primary) hypertension (principal)
CPT/HCPCS: 36415; 83036

== ENCOUNTER 2025-04-24 15:06 | Outpatient (RCR) | payer OTHER, SELFPAY | END 2025-05-16 23:59 | LOC: NS 15:06 | PROVIDERS: PCP Family Medicine; Referring Provider Family Medicine; Visit Provider Family Medicine | DX: Z71.3 Dietary counseling and surveillance (principal); E11.9 Type 2 diabetes mellitus without complications | CPT/HCPCS: 97802 ==

== ENCOUNTER 2025-06-05 15:14 | Outpatient (RCR) | payer OTHER, SELFPAY | END 2025-06-16 23:59 | LOC: NS 15:14 | PROVIDERS: PCP Family Medicine; Referring Provider Family Medicine; Visit Provider Family Medicine | DX: Z71.3 Dietary counseling and surveillance (principal); E11.9 Type 2 diabetes mellitus without complications | CPT/HCPCS: 97803 ==

== ENCOUNTER 2025-07-12 10:49 | Outpatient (RCR) | payer OTHER, SELFPAY | END 2025-07-16 23:59 | LOC: NS 10:49 | PROVIDERS: PCP Family Medicine; Referring Provider Family Medicine; Visit Provider Family Medicine | DX: Z71.3 Dietary counseling and surveillance (principal); E11.9 Type 2 diabetes mellitus without complications | CPT/HCPCS: 97803 ==